=== PATIENT | male | born 1945 | race Caucasian/White ===

== ENCOUNTER 2018-01-03 16:11 | Inpatient (IN) | payer OTHER ==
[~2018-01-03] VITALS: Ht 182.9 cm; Wt 73.0 kg
[~2018-01-03 16:11] MED LIST: ASPIRIN EC81 M1 PO; CYCLOBENZAPRINE10 M1 PO; INDOMETHACIN25 M1 PO; PREDNISONE10 M2 PO; TRAMADOL HCL50 M1 PO; ZITHROMAX250 M2 PO
--- NOTE | 2018-01-03 16:31 | ED CARDIAC/CP/PALPITATIONS ---
History of Present Illness General Chief Complaint: Dyspnea (COPD, CHF, Other) Stated Complaint: SOB WITH EXERTION; BLE SWELLING Source: patient Exam Limitations: no limitations Vital Signs & Intake/Output Vital Signs & Intake/Output Vital Signs Date Time Temp Pulse Resp B/P B/P Pulse O2 O2 Flow FiO2 Mean Ox Delivery Rate 01/03 2029 96.7 85 18 114/70 95 Room Air 01/03 1852 97.0 84 20 117/70 98 Room Air 01/03 1622 98 Room Air 01/03 1620 97.2 86 20 115/76 100 Nasal 4.0L Cannula Allergies Coded Allergies: No Known Allergies (04/27/16) Reconcile Medications Aspirin (Ecotrin*) 81 MG TABLET.DR 1 TAB PO DAILY HEART/BLOOD (Reported) Cyclobenzaprine HCl 10 MG TABLET 1 TAB PO PRN MUSCLE RELAXER (Reported) Rosuvastatin Calcium (Crestor) 10 MG TABLET 1 TAB PO DAILY HIGH CHOLESTROL ( Reported) Tramadol HCl 50 MG TABLET 1 TAB PO PRN PAIN (Reported) Triage Note: PT BIBA FROM HOME WITH C/O EXERTIONAL SOB, GENERAL MALAISE AND BLE EDEMA. PT REPORTS RECENT DX OF BRONCHITIS. WAS FEELING BETTER, BUT HAS BECOME INCREASINGLY UNWELL OVER SEVERAL DAYS, SOB WITH ANY ADLs. GENERALIZED WEAKNESS. HAS NOTED INCREASED SWELLING TO FEET AND ANKLES, WHICH IS NOT BASELINE. PT ARRIVES A&O, PALE. 4L NC IN PLACE. PT IS NOT ON HOME O2. EMS UNABLE TO GET O2 SAT DUE TO PT COOL HANDS. VSS. NO COUGH. Triage Nurses Notes Reviewed? yes Onset: Gradual Duration: getting worse Timing: recent history Radiation: no radiation HPI: Patient is a 72-year-old male with a past medical history of COPD not on home O2 known AAA and hyperlipidemia who IS A CURRENT smoker who was seen and evaluated at [place] emergency room on December 16 for concerns of upper respiratory infection where he was diagnosed with bronchitis given azithromycin and prednisone. Patient returns to the emergency room stating he's had a 5 day history of worsening leg swelling and dyspnea on exertion and generalized weakness and fatigue. Patient denies any fever chills chest pain arm pain jaw pain diaphoresis nausea vomiting abdominal pain hemoptysis (Jerry Satnley) Past History Medical History Any Pertinent Medical History? see below for history Neurological: NONE EENT: NONE Cardiovascular: hyperlipidemia Respiratory: COPD Gastrointestinal: AAA Hepatic: NONE Renal: NONE Musculoskeletal: NONE Psychiatric: NONE Endocrine: NONE Blood Disorders: NONE Cancer(s): NONE COTTON BREEDER/Reproductive: NONE Surgical History Surgical History: non-contributory Psychosocial History Who do you live with Patient/Self Services at Home NONE What is your primary language Serbian Family History Hx Contributory? No (Jerry Stanley) Review of Systems Review of Systems Constitutional: Reports: see HPI, malaise. EENTM: Reports: no symptoms. Respiratory: Reports: see HPI, short of breath. Cardiovascular: Reports: see HPI. GI: Reports: no symptoms. Genitourinary: Reports: no symptoms. Musculoskeletal: Reports: no symptoms. Skin: Reports: no symptoms. Neurological/Psychological: Reports: no symptoms. Hematologic/Endocrine: Reports: no symptoms. Immunologic/Allergic: Reports: no symptoms. All Other Systems: Reviewed and Negative (Jerry Stanley) Physical Exam Physical Exam General Appearance: no apparent distress, alert, comfortable Head: atraumatic Eyes: Bilateral: normal appearance. Ears, Nose, Throat: hearing grossly normal Neck: normal inspection Respiratory: quiet respiration, decreased breath sounds Cardiovascular: regular rate/rhythm Peripheral Pulses: 2+ radial (R), 2+ radial (L) Gastrointestinal: normal bowel sounds, soft, non-tender Neurologic/Psych: no motor/sensory deficits Skin: intact, normal color, warm/dry Core Measures ACS in differential dx? Yes CVA/TIA Diagnosis No Sepsis Present: No Sepsis Focused Exam Completed? No (Jerry Stanley) Progress Differential Diagnosis: AMI, aortic dissection, atrial fibrillation, cholecystitis, CHF/pulm edema, costochondritis, hyperkalemia, hypovolemia, hyperthyroid, hyperventilation, intracranial hemorrhage, myocarditis, pancreatitis, pericarditis, pneumonia, pneumothorax, PSVT, pulmonary embolism, PUD/GERD, PVCs/PACs, respiratory failure, rib fracture, sepsis, unstable angina, V-fib/V-Tach, WPW syndrome Plan of Care: Orders Procedure Date/time Status Heart Healthy Diet 01/04 B Active ED Holding Orders 01/03 185 Active Admit to inpatient 01/03 1859 Active Vital Signs 01/03 1859 Active Code Status 01/03 1859 Active US-LIMITED ABDOMEN 01/03 1858 Active Add-on Test (ER Only) 01/03 1828 Active PARTIAL THROMBOPLASTIN TIME 01/03 1730 Complete PROTHROMBIN TIME 01/03 1730 Complete LIPASE 01/03 1730 Complete LACTIC ACID 01/03 1730 Complete AMYLASE 01/03 1730 Complete Telemetry/Transportation Specialist 01/03 1657 Active TROPONIN LEVEL 01/03 1657 Complete D-DIMER 01/03 1657 Complete COMPREHENSIVE METABOLIC PANEL 01/03 1657 Complete CBC WITHOUT DIFFERENTIAL 01/03 1657 Complete B-TYPE NATRIURETIC PEP (BNP) 01/03 165 Complete EKG 01/03 1637 Active Laboratory Tests 01/03/18 1730: Anion Gap 13, Estimated GFR 43 L, BUN/Creatinine Ratio 36.9 H, Glucose 109 H, Lactic Acid 4.0 H, Calcium 9.2, Total Bilirubin 2.5 H, AST 717 H, ALT 2269 H , Alkaline Phosphatase 252 H, Troponin I 0.13 *H, Zeh-V-Dzjkroaegin Pept 41183 H, Total Protein 6.9, Albumin 3.8, Globulin 3.1, Albumin/Globulin Ratio 1.2, Amylase 35, Lipase 139, PT 32.1 H, INR 2.91 H, APTT 31, D-Dimer High Sensitivty 1850 H, CBC w Diff NO MAN DIFF REQ, RBC 5.28, MCV 90.3, MCH 29.7, MCHC 32.9 L, RDW 16.9 H, MPV 9.5, Gran % 87.5 H, Lymphocytes % 5.7 L, Monocytes % 6.7, Eosinophils % 0, Basophils % 0.1, Absolute Granulocytes 14.3 H , Absolute Lymphocytes 0.9 L, Absolute Monocytes 1.1 H, Absolute Eosinophils 0 , Absolute Basophils 0 Patient on initial presentation was resting comfortably at bedside has nontender abdomen afebrile has diminished breath sounds however no adventitious breath sounds were noted patient was administered nebulizer treatment which improvement of aeration. Patient has concerning findings of EKG abnormalities of inversion T waves patient has critical findings of elevated troponin 0.13 and concerns due to history of present illness of dyspnea on exertion leg swelling and significantly elevated BNP of CHF. I discussed admission with Dr. Fair who is covering for Dr. Hernandez who was aware and will consult. Patient was given IV Lasix patient also has significantly elevated transaminitis bilirubin leukocytosis however no concerns of a ASCENDING cholangitis due to nontender abdomen on examination Is likely this is due to CHF and fluid overload DISCUSSED HANDOFF WITH DR. TANG WHO Will admit Lizbeth TO ICU Discussed admission with patient who was aware and agrees. Discussed admission with vascular surgery who is aware of the incidental finding of the aneurysm and will consult Diagnostic Imaging: Viewed by Me: CT Scan. Radiology Impression: SEE COMMENTS Initial ED EK BPM,RBBB T WAVE INVERSION IN LATERAL LEADS Comments: PATIENT: KWABENA FELDMAN JR PRESENT AGE: 72 PATIENT ACCOUNT NO: [id number] : 45 LOCATION: [facility] ORDERING PHYSICIAN: Jerry YANG SERVICE DATE: 01/03/18 EXAM TYPE: CAT - CT ABD & PELVIS W IV CONTRAST; CTA CHEST-PULMONARY EMBOLISM EXAMINATION: CT ANGIOGRAM OF THE CHEST WITH CONTRAST (CT PULMONARY ANGIOGRAM FOR PE) CLINICAL INFORMATION: Shortness of breath and elevated D-dimer. COMPARISON: No pertinent prior studies are available for comparison. TECHNIQUE: Prior to contrast administration, noncontrast localization images were obtained. Subsequently, multidetector volumetric imaging was performed from the thoracic inlet to below the diaphragms following the administration of 95 mL Optiray 350 intravenous contrast. No contrast reaction reported. Sagittal, coronal, and MIP oblique sagittal reformatted images were obtained on the CT workstation, uploaded to PACS, and reviewed. DLP: Total exam dose-length product 725 mGy-cm FINDINGS: QUALITY OF STUDY/CONTRAST BOLUS: Satisfactory. PULMONARY ARTERIES: Pulmonary arteries are normal in size. There appears to be thin, nonocclusive filling defect within the lumen of a subsegmental branch in the right upper lobe (image 219, series 2). This could represent a residual web from remote embolism. In addition, there is an area of minimal thickening along the anterior wall of the left interlobar artery as well as along the anterior wall of a subsegmental branch in the left lower lobe. These findings also could be sequela of remote embolism. No convincing evidence for an acute embolic filling defect. THORACIC AORTA: Atherosclerotic calcification of the thoracic aorta. The ascending thoracic aorta is 3.9 cm transverse diameter. The aortic lumen is poorly evaluated due to the timing of the contrast bolus for the pulmonary arteries. LUNGS AND PLEURA: There is linear strand of mucus along the tracheal wall and extending into the right mainstem bronchus and into the bronchus intermedius. Shojnuyd-ow-wplqrp centrilobular emphysema. Mild thickening of bronchial grossman in both lungs. Lungs have mosaic attenuation, possibly due to combination of the emphysema and mild edema. There is interlobular septal thickening. Also, mild septal thickening is seen in subpleural regions of the lower lung zones. Small left pleural effusion is present. CARDIOVASCULAR: The heart size is normal. Mitral valve annulus is calcified. Calcifications also observed at the level of the aortic valve. Qwim-wk-izvulykv atherosclerotic calcification of coronary arteries. No pericardial effusion. No evidence of inward bowing of the interventricular septum. There is contrast reflux into the inferior vena cava and hepatic veins, which can be a manifestation of tricuspid regurgitation and/or elevated right heart pressure. MEDIASTINUM: The esophagus has normal wall thickness. The visualized portion of the thyroid gland is unremarkable. No mediastinal mass. LYMPHATICS: No pathologic sized axillary, hilar or mediastinal lymph nodes. OSSEOUS STRUCTURES: No acute findings within the extensively degenerated spine. No aggressive osseous lesions. IMPRESSION: 1. No acute pulmonary emboli are identified. There are a few findings (as noted above) that are suspicious for sequela of remote embolic disease. 2. Ppgvrgbd-oz-pftxqq pulmonary emphysema. 3. Lungs have mosaic attenuation; this appears to be secondary to a combination of pulmonary emphysema and mild interstitial edema. Small left pleural effusion is present. 4. There is contrast reflux into the inferior vena cava and hepatic veins, which can be a manifestation of tricuspid regurgitation and/or elevated right sided cardiac pressures. EXAMINATION: CT ABDOMEN AND PELVIS WITH IV CONTRAST CLINICAL INFORMATION: Elevated liver function tests and bilirubin levels. COMPARISON: Abdomen CT images from 10/14/2016 TECHNIQUE: Multidetector CT imaging examination of the abdomen and pelvis was performed with intravenous administration of contrast (see above) Axial images are displayed at 0.625 mm and 5 mm slice thickness. Coronal and sagittal reformatted images were generated at the technologist's workstation and submitted for review. DLP: See above FINDINGS: HEPATOBILIARY: Liver has normal size and contour. There are a few hepatic cysts, unchanged compared to 10/14/2016. No suspicious hepatic lesion or intrahepatic bile duct dilatation. Gallbladder is grossly unremarkable. PANCREAS: Unremarkable. SPLEEN: Unremarkable. ADRENAL GLANDS: Unremarkable. KIDNEYS, URETERS, BLADDER: Kidneys enhance symmetrically. No renal mass, nephrolithiasis or hydronephrosis. The ureters and urinary bladder unremarkable. GI TRACT AND PERITONEUM: Stomach is unremarkable. Loops of bowel are normal in caliber. No evidence of acute inflammation or obstruction along the gastrointestinal tract. No ascites or pneumoperitoneum. ABDOMINAL WALL: There is edema within subcutaneous tissues of the abdominal wall, flanks and back. VASCULAR: There is increased thrombus along the inner wall of the aneurysmal infrarenal aorta. The fusiform aneurysm begins approximately 3.3 cm below the level of the renal arteries and terminates above the level of bifurcation. The infrarenal abdominal aorta aneurysm measures up to 5.4 cm transverse and 5.2 cm AP, compared to 5.2 x 5 cm on 10/14/2016. Atherosclerotic disease of iliac arteries without aneurysm. LYMPH NODES: No pathologic sized lymph nodes within the abdomen or pelvis. PELVIC VISCERA: Prostate gland has central calcification. No pelvic mass. OSSEOUS STRUCTURES: Multilevel facet arthropathy and multilevel severe degenerative disc disease of the lumbar spine. 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 IMPRESSION: 1. No acute imaging findings within the abdomen or pelvis. 2. Fusiform aneurysm of the infrarenal abdominal aorta has increased thrombus along its inner wall compared to 10/14/2016. The aneurysm has slightly increased in size and currently measures up to 5.4 cm transverse (compared to 5.2 cm on 10/14/2016). DICTATED BY: Thomas Espinoza MD DATE/TIME DICTATED:01/03/181933 INSURANCE ADJUSTER:DUSTY DATE/TIME TRANSCRIBED:01/03/181933 CONFIDENTIAL, DO NOT COPY WITHOUT APPROPRIATE AUTHORIZATION. <Electronically signed in Other Vendor System> SIGNED BY: Thomas Espinoza MD 01/03/182005 (Jerry Stanley) Departure Departure Disposition: STILL A PATIENT Condition: Critical Clinical Impression Primary Impression: CHF (congestive heart failure) Secondary Impressions: VERA (acute kidney injury), COPD (chronic obstructive pulmonary disease), Elevated bilirubin, Elevated troponin, Transaminitis Referrals: Leonard Nieves MD (PCP/Family) Departure Forms: Customer Survey General Discharge Information Admission Note Spoke With: Leonard Nieves MD Documentation of Exam: Documentation of any treatments & extenuating circumstances including Concerns Regarding Discharge (functional status, medication knowledge or non-compliance, living conditions, etc.) that warrant an admission rather than observation: [ Patient requires ICU admission, telemetry monitoring, echocardiogram IV Lasix cardiology consultation and repeat labs pulmonary consultation repeat EKG possible heparinization] (Jerry Stanley) PA/SAND POLISHER Co-Sign Statement Statement: ED Attending supervision documentation- [] I saw and evaluated the patient. I have also reviewed all the pertinent lab results and diagnostic results. I agree with the findings and the plan of care as documented in the PA's/SAND POLISHER's documentation. [X] I have reviewed the ED Record and agree with the PA's/SAND POLISHER's documentation. [] Additions or exceptions (if any) to the PAs/SAND POLISHER's note and plan are summarized below: [] 01/03/18 8 PM 72-year-old man presents with shortness of breath and leg swelling. He has acute EKG changes and a positive troponin. No evidence of ST segment elevation. Cardiology was consulted and he is being admitted to a monitored unit. He admits to difficulty breathing but denies any chest pain. Troponin is elevated, BNP is elevated, transaminases are elevated. He also had an elevated d-dimer. CTA was negative for pulmonary embolism but did show mild pulmonary vascular congestion. Minimal increase in his abdominal aortic aneurysm. He is being admitted to the ICU for further care. Case was discussed with Dr. Nieves who accepted the patient for admission. (Barrington Tang DO) Critical Care Note Critical Care Note Critical Care Time: 30-74 min (Jerry Stanley)
[2018-01-03 17:44] LABS: ABSOLUTE BASOPHIL COUNT 0 /CUMM (0.0-0.2); ABSOLUTE EOSINOPHIL COUNT 0 /CUMM (0.0-0.7); ABSOLUTE GRANULOCYTE CT 14.3 /CUMM (1.4-6.5); ABSOLUTE LYMPH COUNT 0.9 /CUMM (1.2-3.4); ABSOLUTE MONOCYTE COUNT 1.1 /CUMM (0.10-0.60); BASOPHIL % 0.1 % (0.0-2.0); EOSINOPHIL % 0 % (0-5); HEMATOCRIT 47.6 % (42-52); MEAN CORPUSCULAR HGB 29.7 PG (27.0-31.0); MEAN CORPUSCULAR HGB CONC 32.9 G/DL (33.0-37.0); MEAN CORPUSCULAR VOLUME 90.3 FL (80.0-94.0); MEAN PLATELET VOLUME 9.5 FL (7.4-10.4); PLATELET COUNT 76 /CUMM (130-400); RBC DISTRIBUTION WIDTH 16.9 % (11.5-14.5); RED BLOOD CELL CT 5.28 /CUMM (4.70-6.10); WHITE BLOOD CELL COUNT 16.4 /CUMM (4.8-10.8)
[2018-01-03 18:02] LABS: GRANULOCYTE % 87.5 % (42.2-75.2)
[2018-01-03 18:44] LABS: PT 32.1 SEC (9.4-12.5); PTT 31 SEC (25-37)
--- NOTE | 2018-01-03 19:01 | ULTRASOUND REPORT ---
EXAMINATION: US TRIPLEX OF LOWER EXTREMITIES, BILATERAL CLINICAL INFORMATION: Edema. Swelling. COMPARISON: None TECHNIQUE: Color-flow triplex imaging with spectral analysis and compression Doppler were performed on the lower extremities. FINDINGS: Respiratory variation, normal compression and augmented flow are noted throughout the lower extremities. The visualized common femoral vein, superficial femoral vein, profunda femoral vein, popliteal vein and midcalf peroneal and posterior tibial venous segments show no evidence of deep venous thrombosis. There is a popliteal cyst of the right knee measuring 3 x 0.5 x 0.8 cm IMPRESSION: 1. Normal triplex scan without evidence of deep venous thrombosis involving the lower extremities. 2. Right knee popliteal cyst.
[2018-01-03] MEDS ORDERED: CRESTOR10 M1 PO (20:01)
--- NOTE | 2018-01-03 20:06 | CT SCAN REPORT ---
EXAMINATION: CT ANGIOGRAM OF THE CHEST WITH CONTRAST (CT PULMONARY ANGIOGRAM FOR PE) CLINICAL INFORMATION: Shortness of breath and elevated D-dimer. COMPARISON: No pertinent prior studies are available for comparison. TECHNIQUE: Prior to contrast administration, noncontrast localization images were obtained. Subsequently, multidetector volumetric imaging was performed from the thoracic inlet to below the diaphragms following the administration of 95 mL Optiray 350 intravenous contrast. No contrast reaction reported. Sagittal, coronal, and MIP oblique sagittal reformatted images were obtained on the CT workstation, uploaded to PACS, and reviewed. DLP: Total exam dose-length product 725 mGy-cm FINDINGS: QUALITY OF STUDY/CONTRAST BOLUS: Satisfactory. PULMONARY ARTERIES: Pulmonary arteries are normal in size. There appears to be thin, nonocclusive filling defect within the lumen of a subsegmental branch in the right upper lobe (image 219, series 2). This could represent a residual web from remote embolism. In addition, there is an area of minimal thickening along the anterior wall of the left interlobar artery as well as along the anterior wall of a subsegmental branch in the left lower lobe. These findings also could be sequela of remote embolism. No convincing evidence for an acute embolic filling defect. THORACIC AORTA: Atherosclerotic calcification of the thoracic aorta. The ascending thoracic aorta is 3.9 cm transverse diameter. The aortic lumen is poorly evaluated due to the timing of the contrast bolus for the pulmonary arteries. LUNGS AND PLEURA: There is linear strand of mucus along the tracheal wall and extending into the right mainstem bronchus and into the bronchus intermedius. Vkjfxbdc-qr-fvefcp centrilobular emphysema. Mild thickening of bronchial grossman in both lungs. Lungs have mosaic attenuation, possibly due to combination of the emphysema and mild edema. There is interlobular septal thickening. Also, mild septal thickening is seen in subpleural regions of the lower lung zones. Small left pleural effusion is present. CARDIOVASCULAR: The heart size is normal. Mitral valve annulus is calcified. Calcifications also observed at the level of the aortic valve. Dczx-za-dsjzjczx atherosclerotic calcification of coronary arteries. No pericardial effusion. No evidence of inward bowing of the interventricular septum. There is contrast reflux into the inferior vena cava and hepatic veins, which can be a manifestation of tricuspid regurgitation and/or elevated right heart pressure. MEDIASTINUM: The esophagus has normal wall thickness. The visualized portion of the thyroid gland is unremarkable. No mediastinal mass. LYMPHATICS: No pathologic sized axillary, hilar or mediastinal lymph nodes. OSSEOUS STRUCTURES: No acute findings within the extensively degenerated spine. No aggressive osseous lesions. IMPRESSION: 1. No acute pulmonary emboli are identified. There are a few findings (as noted above) that are suspicious for sequela of remote embolic disease. 2. Luextqkh-yr-ziovxt pulmonary emphysema. 3. Lungs have mosaic attenuation; this appears to be secondary to a combination of pulmonary emphysema and mild interstitial edema. Small left pleural effusion is present. 4. There is contrast reflux into the inferior vena cava and hepatic veins, which can be a manifestation of tricuspid regurgitation and/or elevated right sided cardiac pressures. EXAMINATION: CT ABDOMEN AND PELVIS WITH IV CONTRAST CLINICAL INFORMATION: Elevated liver function tests and bilirubin levels. COMPARISON: Abdomen CT images from 10/14/2016 TECHNIQUE: Multidetector CT imaging examination of the abdomen and pelvis was performed with intravenous administration of contrast (see above) Axial images are displayed at 0.625 mm and 5 mm slice thickness. Coronal and sagittal reformatted images were generated at the technologist's workstation and submitted for review. DLP: See above FINDINGS: HEPATOBILIARY: Liver has normal size and contour. There are a few hepatic cysts, unchanged compared to 10/14/2016. No suspicious hepatic lesion or intrahepatic bile duct dilatation. Gallbladder is grossly unremarkable. PANCREAS: Unremarkable. SPLEEN: Unremarkable. ADRENAL GLANDS: Unremarkable. KIDNEYS, URETERS, BLADDER: Kidneys enhance symmetrically. No renal mass, nephrolithiasis or hydronephrosis. The ureters and urinary bladder unremarkable. GI TRACT AND PERITONEUM: Stomach is unremarkable. Loops of bowel are normal in caliber. No evidence of acute inflammation or obstruction along the gastrointestinal tract. No ascites or pneumoperitoneum. ABDOMINAL WALL: There is edema within subcutaneous tissues of the abdominal wall, flanks and back. VASCULAR: There is increased thrombus along the inner wall of the aneurysmal infrarenal aorta. The fusiform aneurysm begins approximately 3.3 cm below the level of the renal arteries and terminates above the level of bifurcation. The infrarenal abdominal aorta aneurysm measures up to 5.4 cm transverse and 5.2 cm AP, compared to 5.2 x 5 cm on 10/14/2016. Atherosclerotic disease of iliac arteries without aneurysm. LYMPH NODES: No pathologic sized lymph nodes within the abdomen or pelvis. PELVIC VISCERA: Prostate gland has central calcification. No pelvic mass. OSSEOUS STRUCTURES: Multilevel facet arthropathy and multilevel severe degenerative disc disease of the lumbar spine. 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 IMPRESSION: 1. No acute imaging findings within the abdomen or pelvis. 2. Fusiform aneurysm of the infrarenal abdominal aorta has increased thrombus along its inner wall compared to 10/14/2016. The aneurysm has slightly increased in size and currently measures up to 5.4 cm transverse (compared to 5.2 cm on 10/14/2016).
--- NOTE | 2018-01-03 21:27 | ULTRASOUND REPORT ---
EXAMINATION: US ABDOMEN LIMITED CLINICAL INFORMATION: Elevated LFT, bilirubin. COMPARISON: CT of the abdomen and pelvis from the same day. TECHNIQUE: Real-time imaging of the right upper quadrant abdominal viscera. Per technologist note, the exam was limited due to overlying bowel gas and difficulty with breath-holding. FINDINGS: PANCREAS: The pancreas is largely obscured by overlying bowel gas. LIVER: The small cyst seen on CT are not sonographically visualized. No discrete hepatic lesion. Some of the documented images suggest slightly increased echogenicity within the liver. No intrahepatic ductal dilatation is visualized. GALLBLADDER: Normal. The gallbladder is physiologically distended without evidence of stones, sludge, polyps, wall thickening or pericholecystic fluid. COMMON BILE DUCT: Normal in caliber measuring 0.6 cm in diameter. RIGHT KIDNEY: Normal. No hydronephrosis. No renal calculi or focal parenchymal lesions. The kidney measures 10.7 cm in maximum dimension. FREE FLUID: None. IMPRESSION: Limited examination without sonographic evidence of acute right upper quadrant abnormality.
--- NOTE | 2018-01-03 22:13 | History & Physical ---
General Information and HPI MD Statement: I have seen and personally examined KWABENA FELDMAN JR and documented this H&P. Source of Information: patient Exam Limitations: no limitations History of Present Illness: This is a 72-year-old gentleman with past medical history significant for COPD not on home oxygen, abdominal aortic aneurysm, chronic back pain, hyperlipidemia presents to the hospital for worsening of dyspnea and lower extremity edema. According to the patient, he has been experiencing worsening of shortness of breath for the past few weeks. He was seen on December 16 for possible upper respiratory infection and received treatment with azithromycin and prednisone taper for possible bronchitis. He also reports that he has been noticing mild chest discomfort for the past few weeks with. Reports having occasional chills for the past few weeks but no fever and no history of sick contacts. He reports having orthopnea at baseline and usually has to sleep in semi-sitting position. States that he has exertional dyspnea at baseline. He noticed that his legs are becoming more swollen for the past few weeks, more so in the past 5 days. He is also been experiencing generalized weakness, today he was too weak to get dressed, ambulance was called and he was brought to the hospital. Patient follows with the vascular surgeon (unsure of the name) for abdominal aortic aneurysm, he was recommended to undergo surgery however refused. He was seen by Dr. Hernandez for clearance before the procedure. Denies having had any echocardiogram or stress test. He smokes one pack per day for the past 50 years. Denies any alcohol or illicit drug use. At the time of our interview, he reports that his chest discomfort has resolved, he reports feeling fatigued and not comfortable. The patient all of his medications including low-dose aspirin in the morning. He received IV methylprednisolone, IV furosemide 40 mg and TRC in the ED. Allergies/Medications Allergies: Coded Allergies: No Known Allergies (04/27/16) Home Med list Aspirin (Ecotrin*) 81 MG TABLET.DR 1 TAB PO DAILY HEART/BLOOD (Reported) Cyclobenzaprine HCl 10 MG TABLET 1 TAB PO PRN MUSCLE RELAXER (Reported) Rosuvastatin Calcium (Crestor) 10 MG TABLET 1 TAB PO DAILY HIGH CHOLESTROL ( Reported) Tramadol HCl 50 MG TABLET 1 TAB PO PRN PAIN (Reported) Past History Travel History Traveled to [place] past 21 day No Medical History Neurological: NONE EENT: NONE Cardiovascular: hyperlipidemia Respiratory: COPD Gastrointestinal: AAA Hepatic: NONE Renal: NONE Musculoskeletal: NONE Psychiatric: NONE Endocrine: NONE Blood Disorders: NONE Cancer(s): NONE MANAGER INTERNET/Reproductive: NONE Surgical History Surgical History: non-contributory Past Family/Social History Psychosocial History Services at Home: NONE ETOH Use: occasional use Review of Systems Review of Systems Constitutional: Reports: chills. Comments See HPI Exam & Diagnostic Data Last 24 Hrs of Vital Signs/I&O Vital Signs Date Time Temp Pulse Resp B/P B/P Pulse O2 O2 Flow FiO2 Mean Ox Delivery Rate 01/04 0132 98 Room Air 01/04 0120 97.5 83 18 113/77 98 Room Air / 0025 97.0 84 18 115/76 98 Room Air 03/ 2338 96.9 86 18 129/59 100 Room Air / 2225 97.0 90 18 114/78 100 Room Air / 2117 98 Room Air / 2029 96.7 85 18 114/70 95 Room Air / 1852 97.0 84 20 117/70 98 Room Air / 1622 98 Room Air / 1620 97.2 86 20 115/76 100 Nasal 4.0L Cannula Intake & Output 01/04 0800 03/07 0000 03/06 1600 Intake Total Output Total 1000 Balance -1000 Output, Urine 1000 Patient 166 lb Weight Weight Reported by Patient Measurement Method Physical Exam General Appearance Alert, Oriented X3 Skin ecchymosis on hands Skin Temp/Moisture Exam: Warm/Dry Sepsis Skin Exam (color): Normal for Ethnicity HEENT Atraumatic, PERRLA, EOMI, Mucous Membr. moist/pink Neck Supple, No JVD, No thryomegaly, +2 Carotid Pulse wo Bruit, No LAD Lymphatic Axillary nl, Cervical nl Cardiovascular Regular Rate, Normal S1, Normal S2, No Murmurs, Gallops, Rubs Lungs Bibasilar crackles, diminished breath sounds Abdomen Normal Bowel Sounds, Soft, No Tenderness, No Hepatospenomegaly, No Masses Neurological Normal Speech, Strength at 5/5 X4 Ext, Normal Tone, Sensation Intact, Cranial Nerves 3-12 NL, Reflexes 2+ Extremities No Clubbing, No Cyanosis, Normal Pulses, LE edema Vascular Normal Pulses, Pulses Symmetrical Last 24 Hrs of Labs/Miguel: Laboratory Tests 01/03/18 2340: Anion Gap 16, Estimated GFR 43 L, Glucose 123 H, Calcium 9.0, Phosphorus 4.9 H, Magnesium 2.3, Total Bilirubin 2.7 H, AST 715 H, ALT 2053 H, Troponin I 0.11 *H, Albumin 3.6, CBC w Diff NO MAN DIFF REQ, RBC 5.15, MCV 90.4, MCH 29.5, MCHC 32.6 L, RDW 17.2 H, MPV 9.6, Gran % 91.8 H, Lymphocytes % 5.0 L, Monocytes % 2.9, Eosinophils % 0, Basophils % 0.3, Absolute Granulocytes 12.9 H , Absolute Lymphocytes 0.7 L, Absolute Monocytes 0.4, Absolute Eosinophils 0, Absolute Basophils 0 01/03/182239: Lactic Acid 3.5 H 01/03/18 1730: Anion Gap 13, Estimated GFR 43 L, BUN/Creatinine Ratio 36.9 H, Glucose 109 H, Lactic Acid 4.0 H, Calcium 9.2, Total Bilirubin 2.5 H, AST 717 H, ALT 2269 H , Alkaline Phosphatase 252 H, Troponin I 0.13 *H, Uhf-W-Cgtornkatnd Pept 47339 H, Total Protein 6.9, Albumin 3.8, Globulin 3.1, Albumin/Globulin Ratio 1.2, Amylase 35, Lipase 139, PT 32.1 H, INR 2.91 H, APTT 31, D-Dimer High Sensitivty 1850 H, CBC w Diff NO MAN DIFF REQ, RBC 5.28, MCV 90.3, MCH 29.7, MCHC 32.9 L, RDW 16.9 H, MPV 9.5, Gran % 87.5 H, Lymphocytes % 5.7 L, Monocytes % 6.7, Eosinophils % 0, Basophils % 0.1, Absolute Granulocytes 14.3 H , Absolute Lymphocytes 0.9 L, Absolute Monocytes 1.1 H, Absolute Eosinophils 0 , Absolute Basophils 0 Microbiology 01/03 2250 BLOOD: Blood Culture - RECD 01/04 2240 BLOOD: Blood Culture - RECD Diagnostic Data EKG Results SR, rate 85, PVCs, RBBB, QTC 500, T wave inversion v1-v3(new compared to prior EKG in 2016) Other Results Chest CTA: 1. No acute pulmonary emboli are identified. There are a few findings (as noted above) that are suspicious for sequela of remote embolic disease. 2. [id number] pulmonary emphysema. 3. Lungs have mosaic attenuation; this appears to be secondary to a combination of pulmonary emphysema and mild interstitial edema. Small left pleural effusion is present. 4. There is contrast reflux into the inferior vena cava and hepatic veins, which can be a manifestation of tricuspid regurgitation and/or elevated right sided cardiac pressures. CT abd/pelvic w/IV contrast: 1. No acute imaging findings within the abdomen or pelvis. 2. Fusiform aneurysm of the infrarenal abdominal aorta has increased thrombus along its inner wall compared to 10/14/2016. The aneurysm has slightly increased in size and currently measures up to 5.4 cm transverse (compared to 5.2 cm on 10/14/2016). Abdomen US: Limited examination without sonographic evidence of acute right upper quadrant abnormality. Venous doppler: 1. Normal triplex scan without evidence of deep venous thrombosis involving the lower extremities. 2. Right knee popliteal cyst. Assessment/Plan Assessment: This is a 72-year-old gentleman with past medical history significant for COPD not on home oxygen, abdominal aortic aneurysm, chronic back pain, hyperlipidemia presents to the hospital for worsening of dyspnea and lower extremity edema. Assessment #Ac[place]: [place] [address], #Elevated troponin with EKG changes: Presented with elevated troponin 0.13 seconds set was 0.11 #LE edema: Doppler negative for DVTs #Transaminitis: Abdominal US negative;unclear etiology #Thrombocytopenia: No previous h/o thrombocytopenia; unclear etiology: Labs revealed platelet level of 76, labs rechecked with confirmed the value. #AAA: Size increased from 5.2 in 2016 to 5.4 #Elevated creatinine #Pulmonary emphysema/COPD #Elevated Lactic acid #Active smoker Plan: * Monitor in the ICU * pipe line walker * I's and O's * Trend troponin and EKGs * TRC/NEbs prn * Obtain blood cultures * Discuss with fish egg packer on-call, Dr. Fair. Per Dr. Fair, patient's clinical picture is not compatible with flash pulmonary edema given he has been experiencing worsening of lower extremity edema and dyspnea for at least a week prior to his presentation today. Dr. Fair is also not convinced if the patient should be started on IV heparin with this level of troponin. He is suggesting to give the patient loading dose aspirin. He is not suggesting to start beta inocencia at this point. Dr. Fair suggesting to check another set of troponin EKG to see the trend. He is suggesting to start the patient on IV Lasix 40 twice a day with close monitoring of creatinine. * Unclear if elevated creatinine is a result of cardiorenal vs pre renal; monitor creatinine closely * Echocardiogram * Trend lactic acid * Consider checking DIC panel * Smoking cessation counseling * Pulmonary consult called * Vascular consult called * Consider GI consult for transaminitis; consider checking Hepatitis panel * Consider hematology consult for thrombocytopenia * DVT PPX: ALPS * Full code The case was discussed with attending Dr. Nieves, who agrees with the above plan. As Ranked By This Provider Problem List: 1. VERA (acute kidney injury) 2. Elevated bilirubin 3. Transaminitis 4. Elevated troponin 5. CHF (congestive heart failure) Core Measures/Misc (07/17) Acute Coronary Syndrome ACS Diagnosis: No Congestive Heart Failure Congestive Heart Failure Diagnosis No Cerebrovascular Accident CVA/TIA Diagnosis: No VTE (View Protocol) VTE Risk Factors Smoker No Mechanical VTE Prophylaxis d/t N/A MechProphylax Ordered No VTE Pharm Prophylaxis d/t Platelets below ref range Sepsis (View protocol) Sepsis Present: No
[2018-01-03 23:58] LABS: ABSOLUTE BASOPHIL COUNT 0 /CUMM (0.0-0.2); ABSOLUTE EOSINOPHIL COUNT 0 /CUMM (0.0-0.7); ABSOLUTE GRANULOCYTE CT 12.9 /CUMM (1.4-6.5); ABSOLUTE LYMPH COUNT 0.7 /CUMM (1.2-3.4); ABSOLUTE MONOCYTE COUNT 0.4 /CUMM (0.10-0.60); BASOPHIL % 0.3 % (0.0-2.0); EOSINOPHIL % 0 % (0-5); HEMATOCRIT 46.5 % (42-52); MEAN CORPUSCULAR HGB 29.5 PG (27.0-31.0); MEAN CORPUSCULAR HGB CONC 32.6 G/DL (33.0-37.0); MEAN CORPUSCULAR VOLUME 90.4 FL (80.0-94.0); MEAN PLATELET VOLUME 9.6 FL (7.4-10.4); RBC DISTRIBUTION WIDTH 17.2 % (11.5-14.5); RED BLOOD CELL CT 5.15 /CUMM (4.70-6.10)
[2018-01-04 00:24] LABS: GRANULOCYTE % 91.8 % (42.2-75.2); PLATELET COUNT 76 /CUMM (130-400)
[2018-01-04 03:00] VITALS: BP 110/90
[2018-01-04 05:58] LABS: ABSOLUTE BASOPHIL COUNT 0 /CUMM (0.0-0.2); ABSOLUTE EOSINOPHIL COUNT 0 /CUMM (0.0-0.7); ABSOLUTE GRANULOCYTE CT 10.8 /CUMM (1.4-6.5); ABSOLUTE LYMPH COUNT 0.5 /CUMM (1.2-3.4); ABSOLUTE MONOCYTE COUNT 0.3 /CUMM (0.10-0.60); BASOPHIL % 0.1 % (0.0-2.0); EOSINOPHIL % 0 % (0-5); HEMATOCRIT 46.2 % (42-52); MEAN CORPUSCULAR HGB 29.4 PG (27.0-31.0); MEAN CORPUSCULAR HGB CONC 32.6 G/DL (33.0-37.0); MEAN CORPUSCULAR VOLUME 90.2 FL (80.0-94.0); MEAN PLATELET VOLUME 9.3 FL (7.4-10.4); PLATELET COUNT 58 /CUMM (130-400); RBC DISTRIBUTION WIDTH 16.6 % (11.5-14.5); RED BLOOD CELL CT 5.12 /CUMM (4.70-6.10); WHITE BLOOD CELL COUNT 11.6 /CUMM (4.8-10.8)
[2018-01-04 06:47] LABS: PT 28.6 SEC (9.4-12.5); PTT 32 SEC (25-37)
[2018-01-04 08:00] VITALS: BP 112/70
--- NOTE | 2018-01-04 08:15 | Cons- Cardiology ---
General Information and HPI Consulting Request Date of Consult: 01/04/18 Requested By: Leonard Nieves MD Reason for Consult: COPD/Probable CHF Source of Information: patient, old records Exam Limitations: no limitations History of Present Illness: the patient is a 72-year-old male who is well-known to me from prior office visits. He has a history of COPD, abdominal aortic aneurysm, and hyperlipidemia. He also has chronic lower extremity edema and probable peripheral vascular disease and venous insufficiency. The patient was originally seen by me for preoperative evaluation prior to AAA repair. However, the patient elected to not undergo the procedure and therefore never had any pre -procedure cardiac testing performed. the patient is now admitted to the hospital with several weeks of worsening shortness of breath and worsening lower extremity edema. He has been treated for possible bronchitis prior to admission. He denies any chest discomfort or other cardiac symptoms at the moment. However, he reportedly noted some chest discomfort previously. I was asked to the patient for further evaluation of his cardiac status, probable CHF, possible valvular disease, and mildly elevated troponin.. Allergies/Medications Allergies: Coded Allergies: No Known Allergies (04/27/16) Home Med List: Aspirin (Ecotrin*) 81 MG TABLET.DR 1 TAB PO DAILY HEART/BLOOD (Reported) Cyclobenzaprine HCl 10 MG TABLET 1 TAB PO PRN MUSCLE RELAXER (Reported) Rosuvastatin Calcium (Crestor) 10 MG TABLET 1 TAB PO DAILY HIGH CHOLESTROL ( Reported) Tramadol HCl 50 MG TABLET 1 TAB PO PRN PAIN (Reported) Current Medications: Current Medications Sig/Yousuf Start time Last Medication Dose Route Stop Time Status Admin Albuterol Sulfate 3 ML ONCE ONE 01/03 1745 DC 01/03 INH 01/03 1746 174 Aspirin 0 .STK-MED ONE 01/04 122 DC PO Aspirin 243 MG ONCE ONE 01/04 100 DC 01/04 PO 01/04 101 0120 Furosemide 40 MG 7:30 AM, & 4:30 PM 01/04 730 AC IV Furosemide 0 .STK-MED ONE 01/03 1802 DC IV Furosemide 40 MG ONCE ONE 01/03 1745 DC 01/03 IV 01/03 1746 180 Ipratropium [place] 2.5 ML ONCE ONE 01/03 1745 DC 01/03 INH 01/03 1746 174 Methylprednisolone 0 .STK-MED ONE 03/06 1802 DC .ROUTE Methylprednisolone 125 MG ONCE ONE 01/03 1745 DC 01/03 IV 01/03 174 1807 Tramadol HCl 0 .STK-MED ONE 01/03 2254 DC PO Tramadol HCl 50 MG ONCE ONE 01/03 2245 DC 01/03 PO 01/03 Past History Travel History Traveled to [place] past 21 day No Medical History Blood Transfusion Hx: No Neurological: NONE EENT: NONE Cardiovascular: aortic aneurysm, hyperlipidemia Respiratory: COPD Gastrointestinal: AAA Hepatic: NONE Renal: NONE Musculoskeletal: NONE Psychiatric: NONE Endocrine: NONE Blood Disorders: NONE Cancer(s): NONE 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 Home Services at Home: NONE CARLA FELDMAN [phone] Smoking Status: Current Everyday Smoker ETOH Use: occasional use Exam & Diagnostic Data Vital Signs and I&O Vital Signs Date Time Temp Pulse Resp B/P B/P Pulse O2 O2 Flow FiO2 Mean Ox Delivery Rate 01/04 0600 96 Nasal 2.0L Cannula 01/04 0346 94 Nasal 2.0L Cannula 01/04 0300 95 Nasal 2.0L Cannula 01/04 0300 97.0 85 20 110/90 95 Nasal 2.0L Cannula 01/04 0132 98 Room Air 01/04 0120 97.5 83 18 113/77 98 Room Air 01/04 0025 97.0 84 18 115/76 98 Room Air 01/03 2338 96.9 86 18 129/59 100 Room Air 01/03 2225 97.0 90 18 114/78 100 Room Air 01/03 2117 98 Room Air 01/03 2029 96.7 85 18 114/70 95 Room Air 01/03 1852 97.0 84 20 117/70 98 Room Air 01/03 1622 98 Room Air 01/03 1620 97.2 86 20 115/76 100 Nasal 4.0L Cannula Intake & Output 01/04 1600 01/04 0800 01/04 0000 01/03 1600 01/03 0800 01/03 0000 Intake Total Output Total 350 1000 Balance -350 -1000 Number 0 Bowel Movements Output, Urine 350 1000 Patient 158 lb 166 lb Weight Weight Bed scale Reported by Patient Measurement Method Physical Exam: General Appearance Alert, Oriented X3 Skin ecchymosis on hands HEENT Atraumatic, PERRLA, EOMI, Mucous Membr. moist/pink Neck Supple, No JVD, No thryomegaly, +2 Carotid Pulse with soft bilateral bruits Lymphatic Axillary nl, Cervical nl Cardiovascular Regular Rate, Normal S1, Normal S2, 2/6 systolic ejection murmur Lungs rhonchi with decreased breath sounds bilaterally Abdomen Normal Bowel Sounds, Soft, No Tenderness, No Hepatospenomegaly, No Masses Neurological Normal /nonfocal Extremities No Clubbing, No Cyanosis, Normal Pulses, + edema Vascular decreased distal lower extremity pulses bilaterally Labs/Miguel Results: Laboratory Tests 01/04 01/04 01/04 0530 0340 0200 Chemistry Sodium (137 - 145 mmol/L) 136 L Potassium (3.5 - 5.1 mmol/L) 4.3 Chloride (98 - 107 mmol/L) 96 L Carbon Dioxide (22 - 30 mmol/L) 26 Anion Gap (5 - 16) 13 BUN (9 - 20 mg/dL) 57 H Creatinine (0.7 - 1.2 mg/dL) 1.8 H Estimated GFR (>60 ml/min) 37 L Glucose (65 - 99 mg/dL) 112 H Lactic Acid (0.7 - 2.1 mmol/L) 3.1 H Cancelled Calcium (8.4 - 10.2 mg/dL) 9.1 Phosphorus (2.5 - 4.5 mg/dL) 5.0 H Magnesium (1.6 - 2.3 mg/dL) 2.4 H Total Bilirubin (0.2 - 1.3 mg/dL) 2.2 H AST (17 - 59 U/L) 637 H ALT (21 - 72 U/L) 1966 H Troponin I (<0.11 ng/ml) 0.14 *H Albumin (3.5 - 5.0 g/dL) 3.5 Coagulation PT (9.4 - 12.5 SEC) 28.6 H INR (0.90 - 1.17) 2.60 H APTT (25 - 37 SEC) 32 Fibrinogen Activity (200 - 393 MG/DL) 89 L D-Dimer High Sensitivty (0 - 243 ng/ml) 1882 H Hematology CBC w Diff MAN DIFF ORDERED WBC (4.8 - 10.8 /CUMM) 11.6 H RBC (4.70 - 6.10 /CUMM) 5.12 Hgb (14.0 - 18.0 G/DL) 15.1 Hct (42 - 52 %) 46.2 MCV (80.0 - 94.0 FL) 90.2 MCH (27.0 - 31.0 PG) 29.4 MCHC (33.0 - 37.0 G/DL) 32.6 L RDW (11.5 - 14.5 %) 16.6 H Plt Count (130 - 400 /CUMM) 58 L MPV (7.4 - 10.4 FL) 9.3 Gran % (42.2 - 75.2 %) 93.0 H Lymphocytes % (20.5 - 51.1 %) 4.4 L Monocytes % (1.7 - 9.3 %) 2.5 Eosinophils % (0 - 5 %) 0 Basophils % (0.0 - 2.0 %) 0.1 Absolute Granulocytes (1.4 - 6.5 /CUMM) 10.8 H Segmented Neutrophils (42.2 - 75.2 %) 94 H Absolute Lymphocytes (1.2 - 3.4 /CUMM) 0.5 L Lymphocytes (20.5 - 51.1 %) 1 L Monocytes (1.7 - 9.3 %) 5 Absolute Monocytes (0.10 - 0.60 /CUMM) 0.3 Absolute Eosinophils (0.0 - 0.7 /CUMM) 0 Absolute Basophils (0.0 - 0.2 /CUMM) 0 Nucleated RBCs (0.0 - 0.0 /100WBC) 2 H Platelet Estimate (ADEQUATE) VERIFIED BY SMEAR Polychromasia 1+ Anisocytosis 1+ Macrocytic Cells FEW Target Cells RARE Malia Cells FEW Elliptocytes FEW 01/03 01/03 2340 2240 Chemistry Sodium (137 - 145 mmol/L) 135 L Potassium (3.5 - 5.1 mmol/L) 4.4 Chloride (98 - 107 mmol/L) 95 L Carbon Dioxide (22 - 30 mmol/L) 24 Anion Gap (5 - 16) 16 BUN (9 - 20 mg/dL) 58 H Creatinine (0.7 - 1.2 mg/dL) 1.6 H Estimated GFR (>60 ml/min) 43 L Glucose (65 - 99 mg/dL) 123 H Lactic Acid (0.7 - 2.1 mmol/L) 3.5 H Calcium (8.4 - 10.2 mg/dL) 9.0 Phosphorus (2.5 - 4.5 mg/dL) 4.9 H Magnesium (1.6 - 2.3 mg/dL) 2.3 Total Bilirubin (0.2 - 1.3 mg/dL) 2.7 H AST (17 - 59 U/L) 715 H ALT (21 - 72 U/L) 2053 H Troponin I (<0.11 ng/ml) 0.11 *H Albumin (3.5 - 5.0 g/dL) 3.6 Hematology CBC w Diff NO MAN DIFF REQ WBC (4.8 - 10.8 /CUMM) 14.0 H RBC (4.70 - 6.10 /CUMM) 5.15 Hgb (14.0 - 18.0 G/DL) 15.2 Hct (42 - 52 %) 46.5 MCV (80.0 - 94.0 FL) 90.4 MCH (27.0 - 31.0 PG) 29.5 MCHC (33.0 - 37.0 G/DL) 32.6 L RDW (11.5 - 14.5 %) 17.2 H Plt Count (130 - 400 /CUMM) 76 L MPV (7.4 - 10.4 FL) 9.6 Gran % (42.2 - 75.2 %) 91.8 H Lymphocytes % (20.5 - 51.1 %) 5.0 L Monocytes % (1.7 - 9.3 %) 2.9 Eosinophils % (0 - 5 %) 0 Basophils % (0.0 - 2.0 %) 0.3 Absolute Granulocytes (1.4 - 6.5 /CUMM) 12.9 H Absolute Lymphocytes (1.2 - 3.4 /CUMM) 0.7 L Absolute Monocytes (0.10 - 0.60 /CUMM) 0.4 Absolute Eosinophils (0.0 - 0.7 /CUMM) 0 Absolute Basophils (0.0 - 0.2 /CUMM) 0 03/06 1730 Chemistry Sodium (137 - 145 mmol/L) 133 L Potassium (3.5 - 5.1 mmol/L) 5.1 Chloride (98 - 107 mmol/L) 96 L Carbon Dioxide (22 - 30 mmol/L) 24 Anion Gap (5 - 16) 13 BUN (9 - 20 mg/dL) 59 H Creatinine (0.7 - 1.2 mg/dL) 1.6 H Estimated GFR (>60 ml/min) 43 L BUN/Creatinine Ratio (7 - 25 %) 36.9 H Glucose (65 - 99 mg/dL) 109 H Lactic Acid (0.7 - 2.1 mmol/L) 4.0 H Calcium (8.4 - 10.2 mg/dL) 9.2 Total Bilirubin (0.2 - 1.3 mg/dL) 2.5 H AST (17 - 59 U/L) 717 H ALT (21 - 72 U/L) 2269 H Alkaline Phosphatase (< 127 U/L) 252 H Troponin I (<0.11 ng/ml) 0.13 *H [id number] Pept (<125 pg/mL) 68843 H Total Protein (6.3 - 8.2 g/dL) 6.9 Albumin (3.5 - 5.0 g/dL) 3.8 Globulin (1.9 - 4.2 gm/dL) 3.1 Albumin/Globulin Ratio (1.1 - 2.2 %) 1.2 Amylase (30 - 110 U/L) 35 Lipase (23 - 300 U/L) 139 Coagulation PT (9.4 - 12.5 SEC) 32.1 H INR (0.90 - 1.17) 2.91 H APTT (25 - 37 SEC) 31 D-Dimer High Sensitivty (0 - 243 ng/ml) 1850 H Hematology CBC w Diff NO MAN DIFF REQ WBC (4.8 - 10.8 /CUMM) 16.4 H RBC (4.70 - 6.10 /CUMM) 5.28 Hgb (14.0 - 18.0 G/DL) 15.7 Hct (42 - 52 %) 47.6 MCV (80.0 - 94.0 FL) 90.3 MCH (27.0 - 31.0 PG) 29.7 MCHC (33.0 - 37.0 G/DL) 32.9 L RDW (11.5 - 14.5 %) 16.9 H Plt Count (130 - 400 /CUMM) 76 L MPV (7.4 - 10.4 FL) 9.5 Gran % (42.2 - 75.2 %) 87.5 H Lymphocytes % (20.5 - 51.1 %) 5.7 L Monocytes % (1.7 - 9.3 %) 6.7 Eosinophils % (0 - 5 %) 0 Basophils % (0.0 - 2.0 %) 0.1 Absolute Granulocytes (1.4 - 6.5 /CUMM) 14.3 H Absolute Lymphocytes (1.2 - 3.4 /CUMM) 0.9 L Absolute Monocytes (0.10 - 0.60 /CUMM) 1.1 H Absolute Eosinophils (0.0 - 0.7 /CUMM) 0 Absolute Basophils (0.0 - 0.2 /CUMM) 0 Diagnostic Data Other Results PULMONARY ARTERIES: Pulmonary arteries are normal in size. There appears to be thin, nonocclusive filling defect within the lumen of a subsegmental branch in the right upper lobe (image 219, series 2). This could represent a residual web from remote embolism. In addition, there is an area of minimal thickening along the anterior wall of the left interlobar artery as well as along the anterior wall of a subsegmental branch in the left lower lobe. These findings also could be sequela of remote embolism. No convincing evidence for an acute embolic filling defect. THORACIC AORTA: Atherosclerotic calcification of the thoracic aorta. The ascending thoracic aorta is 3.9 cm transverse diameter. The aortic lumen is poorly evaluated due to the timing of the contrast bolus for the pulmonary arteries. LUNGS AND PLEURA: There is linear strand of mucus along the tracheal wall and extending into the right mainstem bronchus and into the bronchus intermedius. [id number] centrilobular emphysema. Mild thickening of bronchial grossman in both lungs. Lungs have mosaic attenuation, possibly due to combination of the emphysema and mild edema. There is interlobular septal thickening. Also, mild septal thickening is seen in subpleural regions of the lower lung zones. Small left pleural effusion is present. CARDIOVASCULAR: The heart size is normal. Mitral valve annulus is calcified. Calcifications also observed at the level of the aortic valve. [id number] atherosclerotic calcification of coronary arteries. No pericardial effusion. No evidence of inward bowing of the interventricular septum. There is contrast reflux into the inferior vena cava and hepatic veins, which can be a manifestation of tricuspid regurgitation and/or elevated right heart pressure. MEDIASTINUM: The esophagus has normal wall thickness. The visualized portion of the thyroid gland is unremarkable. No mediastinal mass. LYMPHATICS: No pathologic sized axillary, hilar or mediastinal lymph nodes. OSSEOUS STRUCTURES: No acute findings within the extensively degenerated spine. No aggressive osseous lesions. IMPRESSION: 1. No acute pulmonary emboli are identified. There are a few findings (as noted above) that are suspicious for sequela of remote embolic disease. 2. [id number] pulmonary emphysema. 3. Lungs have mosaic attenuation; this appears to be secondary to a combination of pulmonary emphysema and mild interstitial edema. Small left pleural effusion is present. 4. There is contrast reflux into the inferior vena cava and hepatic veins, which can be a manifestation of tricuspid regurgitation and/or elevated right sided cardiac pressures. EXAMINATION: CT ABDOMEN AND PELVIS WITH IV CONTRAST CLINICAL INFORMATION: Elevated liver function tests and bilirubin levels. COMPARISON: Abdomen CT images from 10/14/2016 TECHNIQUE: Multidetector CT imaging examination of the abdomen and pelvis was performed with intravenous administration of contrast (see above) Axial images are displayed at 0.625 mm and 5 mm slice thickness. Coronal and sagittal reformatted images were generated at the technologist's workstation and submitted for review. DLP: See above FINDINGS: HEPATOBILIARY: Liver has normal size and contour. There are a few hepatic cysts, unchanged compared to 10/14/2016. No suspicious hepatic lesion or intrahepatic bile duct dilatation. Gallbladder is grossly unremarkable. PANCREAS: Unremarkable. SPLEEN: Unremarkable. ADRENAL GLANDS: Unremarkable. KIDNEYS, URETERS, BLADDER: Kidneys enhance symmetrically. No renal mass, nephrolithiasis or hydronephrosis. The ureters and urinary bladder unremarkable. GI TRACT AND PERITONEUM: Stomach is unremarkable. Loops of bowel are normal in caliber. No evidence of acute inflammation or obstruction along the gastrointestinal tract. No ascites or pneumoperitoneum. ABDOMINAL WALL: There is edema within subcutaneous tissues of the abdominal wall, flanks and back. VASCULAR: There is increased thrombus along the inner wall of the aneurysmal infrarenal aorta. The fusiform aneurysm begins approximately 3.3 cm below the level of the renal arteries and terminates above the level of bifurcation. The infrarenal abdominal aorta aneurysm measures up to 5.4 cm transverse and 5.2 cm AP, compared to 5.2 x 5 cm on 10/14/2016. Atherosclerotic disease of iliac arteries without aneurysm. LYMPH NODES: No pathologic sized lymph nodes within the abdomen or pelvis. PELVIC VISCERA: Prostate gland has central calcification. No pelvic mass. OSSEOUS STRUCTURES: Multilevel facet arthropathy and multilevel severe degenerative disc disease of the lumbar spine. 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 IMPRESSION: 1. No acute imaging findings within the abdomen or pelvis. 2. Fusiform aneurysm of the infrarenal abdominal aorta has increased thrombus along its inner wall compared to 10/14/2016. The aneurysm has slightly increased in size and currently measures up to 5.4 cm transverse (compared to 5.2 cm on 10/14/2016). Assessment/Plan Assessment/Plan Assessment: 1. Worsening dyspnea and LE edema; likely related to COPD exacerbation and probable CHF 2. Minimally elevated troponin 3. Cardiomyopathy with depressed left ventricular function and ejection fraction of 25-30% 4. Severe aortic stenosis 5. Mild pulmonary hypertension 6. VERA 7. Transaminitis 8. Thrombocytopenia; elevated PT/PTT; possible DIC 6. AAA Recommendations: - Continue to monitor on telemetry. - In view of increasing creatinine, consider Nephrology input prior to further aggressive diuresis. also, in view of the patient's aortic valve disease and depressed left ventricular function, I would pursue any further diuresis, very gingerly at the time it is reinstituted. - Echocardiogram to assess LV function and valvular function and RVSP. - Followup labs pending - Eventually the patient will likely need a cardiac catheterization - Pulmonary input pending -Hematology input noted - Consult Acknowledgment - Thank you for your consult request.
--- NOTE | 2018-01-04 08:39 | Cons- CRCU ---
Shmuel GARNER,[facility] 01/04/18 0839: General Information and HPI Consulting Request Date of Consult: 01/04/18 Requested By: Dr. Nieves Exam Limitations: no limitations History of Present Illness: The patient is 72-year-old gentleman. He presented to [facility] ED on 01/03 with presenting complain of shortness of breath, lower extremity edema and chest discomfort/congestion. He felt extremely lethargic felt he was too weak to get dressed so he called his [id number] to take him to the hospital who called the ambulance for him. Patient has been experiencing increasing shortness of breath for past 4 days. He also has been extremely experiencing increased lower extremity edema for past 4 months and increasing bruisability for the past 3 years. Patient was treated for URI on December 16 with azithromycin and prednisone taper for bronchitis. PMH -COPD, not on home oxygen and was never evaluated by pulmonology, no PFTs in the past -Infrarenal AAA for which the patient has declined surgery in the past, size 5.4 cm (5.2 in 2017) -chronic back pain on tramadol, cyclobenzaprine -Hyperlipidemia on statin -Multi-nodular goiter on survillance by every 6 months PSH -Appendectomy -Back surgeries most recent one in 2017, pathology report was negative for malignancy FH Healthy parents SH -Continues to smoke 1 pack per day, 50 pack years. -Denies any alcohol and illicit with the parents live in drug abuse. Allergies/Medications Allergies: Coded Allergies: No Known Allergies (04/27/16) Home Med List: Aspirin (Ecotrin*) 81 MG TABLET.DR 1 TAB PO DAILY HEART/BLOOD (Reported) Cyclobenzaprine HCl 10 MG TABLET 1 TAB PO PRN MUSCLE RELAXER (Reported) Rosuvastatin Calcium (Crestor) 10 MG TABLET 1 TAB PO DAILY HIGH CHOLESTROL ( Reported) Tramadol HCl 50 MG TABLET 1 TAB PO PRN PAIN (Reported) Review of Systems Review of Systems Constitutional: Reports: see HPI. 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 Home Services at Home: NONE CARLA FELDMAN [phone] Smoking Status: Current Everyday Smoker ETOH Use: occasional use Exam & Diagnostic Data Last 24 Hrs of Vital Signs/I&O Vital Signs Date Time Temp Pulse Resp B/P B/P Pulse O2 O2 Flow FiO2 Mean Ox Delivery Rate 01/04 08 96.3 89 20 112/70 93 Nasal 2.0L Cannula 01/04 0600 96 Nasal 2.0L Cannula 01/04 0346 94 Nasal 2.0L Cannula 01/04 0300 95 Nasal 2.0L Cannula 01/04 0300 97.0 85 20 110/90 95 Nasal 2.0L Cannula 01/04 0132 98 Room Air 01/04 0120 97.5 83 18 113/77 98 Room Air 01/04 0025 97.0 84 18 115/76 98 Room Air 03/ 2338 96.9 86 18 129/59 100 Room Air 01/03 2225 97.0 90 18 114/78 100 Room Air 01/03 2117 98 Room Air 01/03 2029 96.7 85 18 114/70 95 Room Air / 1852 97.0 84 20 117/70 98 Room Air / 1622 98 Room Air / 1620 97.2 86 20 115/76 100 Nasal 4.0L Cannula Intake & Output 01/04 1600 01/04 0800 01/04 0000 Intake Total Output Total 350 1000 Balance -350 -1000 Number 0 Bowel Movements Output, Urine 350 1000 Patient 158 lb 166 lb Weight Weight Bed scale Reported by Patient Measurement Method Physical Exam General Appearance: no apparent distress, alert, awake, comfortable Head: atraumatic Ears, Nose, Throat: normal pharynx Neck: normal inspection, supple Respiratory: decreased breath sounds, crackles Cardiovascular: regular rate/rhythm Gastrointestinal: normal bowel sounds, soft, non-tender Extremities: echymosis on hands, knees and legs Neurologic/Psych: oriented x 3 Cranial Nerves: normal hearing, normal speech Last 48 Hrs of Labs/Miguel: Laboratory Tests 01/04/18 0800: Lactic Acid 2.2 H 01/04/18 0530: Anion Gap 13, Estimated GFR 37 L, Glucose 112 H, Calcium 9.1, Phosphorus 5.0 H, Magnesium 2.4 H, Total Bilirubin 2.2 H, AST 637 H, ALT 1966 H, Alkaline Phosphatase 240 H, Troponin I 0.14 *H, Albumin 3.5, Total PSA Pending, PT 28.6 H, INR 2.60 H, APTT 32, Fibrinogen Activity 89 L, D-Dimer High Sensitivty 1882 H, CBC w Diff MAN DIFF ORDERED, RBC 5.12, MCV 90.2, MCH 29.4, MCHC 32.6 L, RDW 16.6 H, MPV 9.3, Gran % 93.0 H, Lymphocytes % 4.4 L, Monocytes % 2.5, Eosinophils % 0, Basophils % 0.1, Absolute Granulocytes 10.8 H, Segmented Neutrophils 94 H, Absolute Lymphocytes 0.5 L, Lymphocytes 1 L, Monocytes 5, Absolute Monocytes 0.3, Absolute Eosinophils 0, Absolute Basophils 0, Nucleated RBCs 2 H, Platelet Estimate VERIFIED BY SMEAR, Polychromasia 1+, Anisocytosis 1 +, Macrocytic Cells FEW, Target Cells RARE, Malia Cells FEW, Elliptocytes FEW, Hepatitis A IgM Ab Pending, Hep Bs Antigen Pending, Hep B Core IgM Ab Conf Pending, Hepatitis C Antibody Pending, HIV 1&2 Ab Western Blot Pending 01/04/18 0340: Lactic Acid 3.1 H 01/04/18 0200: Lactic Acid Cancelled 01/03/18 2340: Anion Gap 16, Estimated GFR 43 L, Glucose 123 H, Calcium 9.0, Phosphorus 4.9 H, Magnesium 2.3, Total Bilirubin 2.7 H, AST 715 H, ALT 2053 H, Troponin I 0.11 *H, Albumin 3.6, CBC w Diff NO MAN DIFF REQ, RBC 5.15, MCV 90.4, MCH 29.5, MCHC 32.6 L, RDW 17.2 H, MPV 9.6, Gran % 91.8 H, Lymphocytes % 5.0 L, Monocytes % 2.9, Eosinophils % 0, Basophils % 0.3, Absolute Granulocytes 12.9 H , Absolute Lymphocytes 0.7 L, Absolute Monocytes 0.4, Absolute Eosinophils 0, Absolute Basophils 0 01/03/18 2240: Lactic Acid 3.5 H 01/03/18 1730: Anion Gap 13, Estimated GFR 43 L, BUN/Creatinine Ratio 36.9 H, Glucose 109 H, Lactic Acid 4.0 H, Calcium 9.2, Total Bilirubin 2.5 H, AST 717 H, ALT 2269 H , Alkaline Phosphatase 252 H, Troponin I 0.13 *H, Lcu-M-Icsrwhwrfwq Pept 16038 H, Total Protein 6.9, Albumin 3.8, Globulin 3.1, Albumin/Globulin Ratio 1.2, Amylase 35, Lipase 139, PT 32.1 H, INR 2.91 H, APTT 31, D-Dimer High Sensitivty 1850 H, CBC w Diff NO MAN DIFF REQ, RBC 5.28, MCV 90.3, MCH 29.7, MCHC 32.9 L, RDW 16.9 H, MPV 9.5, Gran % 87.5 H, Lymphocytes % 5.7 L, Monocytes % 6.7, Eosinophils % 0, Basophils % 0.1, Absolute Granulocytes 14.3 H , Absolute Lymphocytes 0.9 L, Absolute Monocytes 1.1 H, Absolute Eosinophils 0 , Absolute Basophils 0 Assessment/Plan CRCU Impression/Plan: The patient is 72-year-old gentleman with history of COPD infrarenal aortic aneurysm, hyperlipidemia and back pain. Who presented to [facility] ED with current complaint of dyspnea lower extremity edema and chest discomfort. -Vitals on presentation WNL -Admission labs significant for leukocytosis 16.4, thrombocytopenia 76, transaminitis AST 7.7, ALT 2269, hyperbilirubinemia 2.5, hyponatremia 133, VERA cr 1.6, troponin 0.13, lactic acidosis f4 -Lower extremity negative for DVT, CTA negative for acute PE however suggestive of previous emboli, moderate to severe emphysema with reflux into inferior vena cava suggested a right cardiac etiology, infrarenal abdominal aortic aneurysm 5.4 cm. RUQ negative Echo pending -Patient received IV methylprednisolone, IV furosemide 40 mg and TRC in the ED. He was started on IV Lasix 40mg BID * Worsening dyspnea lower extremity edema likely secondary to cor pulmonale, right-sided heart failure due to COPD * Transaminitis likely secondary to liver congestion * Thrombocytopenia,low fibrinogen most likely congestive coagulopathy * VERA cardiorenal? worsened by lasix, IV contrast * Elevated troponin multifactorial * Lactic acidosis hypoperfusion versus liver dysfunction * Leukocytosis probably reactive vs sepsis no probable source? #Dyspnea Patient has history of COPD with 50 pack years of smoking, he presented with Worsening dyspnea for the past 4 days and increasing lower [place] [id number]. CTA negative for PE but suggestive of contrast reflux into the inferior vena cava suggestive of Right-sided cardiac pathology. It is very likely that patient has a cor pulmanlae secondary to COPD causing right-sided heart failure -Echocardiogram Doppler pending -Oxygen supplementation to maintain oxygen saturation above 90% -TRC/nebulization treatment -IV lasix on hold #Hyperbilirubinemia and transaminitis improving Most likely secondary to liver congestion -Continue to monitor -Hepatitis panel, HIV #Thrombocytopenia, Low Fibrinogen Possible etiologies includes congestive coagulopathy secondary to liver congestion, consumption coagulopathy with abdominal aortic aneurysm, DIC (sepsis , malignancy) and PE. Most likely patient has congestive cardiopathy secondary to liver congestion in setting of right heart failure. PE has been ruled out, patient does not appear to be in sepsis hemodynamically stable no source of infection, there were no schistocytes present on the smear -Transfuse one bag of cryoprecipitate -Consider platelet transfusion if <20 -Hematology service contacted -Repeat CBC, PT, fibrinogen @4pm -If active bleeding consider fresh percent plasma #VERA Possible etiologies cardiorenal syndrome, worsened with lasix and IV contrast -Nephrology consult -Monitor creatinine will probably increase 2/2 contrast -Encourage oral intake -Avoid nephrotoxins -Lasix put on hold #Elveated Troponis Possible etiology can be right-sided heart failure, acute renal failure, pulmonary hypertension 0.13, 0.11, 0.14, No EKG chages -Continue to monitor #Leukocytosis/ rule out sepsis Presented with a WBC count of 16 can be reactive. NO bands. There is no obvious source of infection. Patient is afebrile and hemodynamically stable. He does have lactic acidosis but that can be explained by other etiologies as well -Continue to monitor fever and WBC curve -Pancultured -Monitor off antibiotics #Lactic acidosis Improving, can be secondary to liver dysfunction, intravascular hypoperfusion? spesis unlikely -Continue to trend Diet Heart healthy diet DVT prophylaxis with ALPS only in Setting of Thrombocytopenia Full Code Recommendations: I believe patient does not require ICU monitoring and can be downgraded to cardiac floor Consult Acknowledgment - Thank you for your consult request. Rui GARNER,[facility] 01/04/18 5626: Assessment/Plan CRCU Other Findings/Comments: Seen and examined independently History as above physical exam as noted above agree with above Significant data reviewed Creatinine is up to 1.8 baseline was 1 BUN is 57 Lactic acid level which was elevated now is normal Bilirubin level seems to be getting down alkaline phosphatase 240 AST ALT 267 and 1966 White count 11.6 no significant anemia Patient has significant thrombocytopenia with elevated INR and the evidence of DIC This is a gentleman with history of significant smoking, severe COPD, baseline creatinine of 1, ongoing smoking, expanding AAA, dyslipidemia, came in with progressive dyspnea increased lower extremity edema with very mild hypoxemia. Since he came in here it appears that he probably does have significant right heart failure with clinical evidence suggestive of congestive liver with transaminitis and also he was found to be coagulopathic with high INR, low platelets with no clinical evidence suggestive of thrombotic thrombocytopenia. ISSUES * Worsening dyspnea lower extremity edema most likely related to right heart failure from his COPD compounded by severe LV dysfunction with critical * Severe COPD with no clinical evidence suggestive of wheezing or COPD exacerbation or infection * Severe cardiomyopathy with significantly depressed ejection fraction and Severe aortic stenosis * Elevated troponin with EKG changes, with LVWMA rule out ischemia and pt may need cardiac cath if his coagulopathy and other issues resolve * Acute kidney injury most likely related to right heart dysfunction, now pt is s/p contrast * Significant transaminitis with no clinical suggestive evidence of obstructive jaundice * Thrombocytopenia associated with coagulopathy most likely associated with right heart failure. No evidence suggestive of venous thromboembolism. No clinical evidence suggestive of TTP with no schistocytes. Differential diagnoses of broad hematology evaluation already noted and differential diagnoses include most likely cor pulmonale with passive congestion, unlikely test this is sepsis, consumptive coagulopathy due to aneurysm however vascular surgery consult noted and at this time clinically stable, with no evidence suggestive of leak * Enlarging AAA vascular surgery consult noted. Patient does have increased thrombus noted along its in the wall of the AAA * Significant small airway disease which is made worse and by mild left heart failure as well * Ongoing smoking, PVD, and multiple other risk factors RECOMMENDATION * Continue nebulizer only if he is wheezing * Hold steroids * Watch his urine output carefully * Check his lab work as noted by hematology and transfuse cryoprecipitate for fibrinogen level less than 100 * Watch for active bleeding give FFP if needed * Watch his platelets every 12 hours and if it's less than 20,000 needs platelet transfusion on if he is actively bleeding * Hold antibiotics and await cultures * Check urinary and strep pneumo antigen and leigenella antigen * Patient appears euvolemic at this time avoid diuresis * As he does have critical aortic stenosis and significant right heart dysfunction if he does have worsening renal insufficiency a trial of very low- dose IV fluids may be necessary, as he did recently receive contrast as well. * If he becomes hypoxemic and has acute pulmonary edema by clinical exam then we will trial a dose of Lasix. * Po ppi * Venodyne boots Pt is critically ill and tts 40 mins Consult Acknowledgment - Thank you for your consult request.
--- NOTE | 2018-01-04 09:38 | Cons- Hematology ---
General Information and HPI Consulting Request Date of Consult: 01/04/18 Requested By: Leonard Nieves MD History of Present Illness: 7-year-old man resented to the emergency room with increasing shortness of breath. Patient had mild chest discomfort not associated with hemoptysis. Patient denied productive cough Patient denied fever chills. Patient has easy bruisability 4 years. Allergies/Medications Allergies: Coded Allergies: No Known Allergies (04/27/16) Home Med List: Aspirin (Ecotrin*) 81 MG TABLET.DR 1 TAB PO DAILY HEART/BLOOD (Reported) Cyclobenzaprine HCl 10 MG TABLET 1 TAB PO PRN MUSCLE RELAXER (Reported) Rosuvastatin Calcium (Crestor) 10 MG TABLET 1 TAB PO DAILY HIGH CHOLESTROL ( Reported) Tramadol HCl 50 MG TABLET 1 TAB PO PRN PAIN (Reported) Current Medications: Current Medications Sig/Yousuf Start time Last Medication Dose Route Stop Time Status Admin Albuterol Sulfate 3 ML ONCE ONE 01/03 1745 DC 01/03 INH 01/03 1746 1749 Aspirin 0 .STK-MED ONE 01/04 0122 DC PO Aspirin 243 MG ONCE ONE 01/04 0100 DC 01/04 PO 01/04 0101 0120 Furosemide 40 MG 7:30 AM, & 4:30 PM 01/04 0730 DC 01/04 IV 0906 Furosemide 0 .STK-MED ONE 01/03 1802 DC IV Furosemide 40 MG ONCE ONE 01/03 1745 DC / IV 01/03 1746 1807 Ipratropium Glasco 2.5 ML ONCE ONE 01/03 1745 DC 01/03 INH 01/03 1746 1749 Methylprednisolone 0 .STK-MED ONE 01/03 1802 DC .ROUTE Methylprednisolone 125 MG ONCE ONE 01/03 1745 DC / IV 01/03 1746 1807 Tramadol HCl 0 .STK-MED ONE 01/03 2254 DC PO Tramadol HCl 50 MG ONCE ONE 01/03 2245 DC / PO / 224 2251 Review of Systems Review of Systems: Patient denies headaches or dizziness. Patient denies nausea vomiting abdominal pain or change in bowel habits. Patient denies dysuria hematuria. Patient denies new bone pain. She denies focal neurologic deficit. 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 Home Services at Home: NONE CARLA FELDMAN [phone] Smoking Status: Current Everyday Smoker ETOH Use: occasional use Exam & Diagnostic Data Vital Signs and I&O Vital Signs Date Time Temp Pulse Resp B/P B/P Pulse O2 O2 Flow FiO2 Mean Ox Delivery Rate 01/04 08 96.3 89 20 112/70 93 Nasal 2.0L Cannula 01/04 0600 96 Nasal 2.0L Cannula 01/04 0346 94 Nasal 2.0L Cannula 01/04 0300 95 Nasal 2.0L Cannula 01/04 0300 97.0 85 20 110/90 95 Nasal 2.0L Cannula / 0132 98 Room Air / 0120 97.5 83 18 113/77 98 Room Air / 0025 97.0 84 18 115/76 98 Room Air 03/06 2338 96.9 86 18 129/59 100 Room Air 03/06 2225 97.0 90 18 114/78 100 Room Air 03/06 2117 98 Room Air 03/06 2029 96.7 85 18 114/70 95 Room Air 03/06 1852 97.0 84 20 117/70 98 Room Air 03/06 1622 98 Room Air 03/06 1620 97.2 86 20 115/76 100 Nasal 4.0L Cannula Intake & Output / 1600 01/04 0800 01/04 0000 Intake Total Output Total 350 1000 Balance -350 -1000 Number 0 Bowel Movements Output, Urine 350 1000 Patient 158 lb 166 lb Weight Weight Bed scale Reported by Patient Measurement Method Gen.: in NAD ENT: Sclera anicteric Chest: Normal respiratory effort, decreased breath sounds Cor: RRR, Abdomen: Soft, bowel sounds present, no tenderness, no rebound Extremities: Without clubbing, cyanosis, or asymmetric edema Neurology: Alert and oriented 3, no gross deficit Skin: Scattered ecchymoses Last 48 Hours of Lab Results: Laboratory Tests 01/04 01/04 01/04 0800 0530 0340 Chemistry Sodium (137 - 145 mmol/L) 136 L Potassium (3.5 - 5.1 mmol/L) 4.3 Chloride (98 - 107 mmol/L) 96 L Carbon Dioxide (22 - 30 mmol/L) 26 Anion Gap (5 - 16) 13 BUN (9 - 20 mg/dL) 57 H Creatinine (0.7 - 1.2 mg/dL) 1.8 H Estimated GFR (>60 ml/min) 37 L Glucose (65 - 99 mg/dL) 112 H Lactic Acid (0.7 - 2.1 mmol/L) 2.2 H 3.1 H Calcium (8.4 - 10.2 mg/dL) 9.1 Phosphorus (2.5 - 4.5 mg/dL) 5.0 H Magnesium (1.6 - 2.3 mg/dL) 2.4 H Total Bilirubin (0.2 - 1.3 mg/dL) 2.2 H AST (17 - 59 U/L) 637 H ALT (21 - 72 U/L) 1966 H Troponin I (<0.11 ng/ml) 0.14 *H Albumin (3.5 - 5.0 g/dL) 3.5 Coagulation PT (9.4 - 12.5 SEC) 28.6 H INR (0.90 - 1.17) 2.60 H APTT (25 - 37 SEC) 32 Fibrinogen Activity (200 - 393 MG/DL) 89 L D-Dimer High Sensitivty (0 - 243 ng/ml) 1882 H Hematology CBC w Diff MAN DIFF ORDERED WBC (4.8 - 10.8 /CUMM) 11.6 H RBC (4.70 - 6.10 /CUMM) 5.12 Hgb (14.0 - 18.0 G/DL) 15.1 Hct (42 - 52 %) 46.2 MCV (80.0 - 94.0 FL) 90.2 MCH (27.0 - 31.0 PG) 29.4 MCHC (33.0 - 37.0 G/DL) 32.6 L RDW (11.5 - 14.5 %) 16.6 H Plt Count (130 - 400 /CUMM) 58 L MPV (7.4 - 10.4 FL) 9.3 Gran % (42.2 - 75.2 %) 93.0 H Lymphocytes % (20.5 - 51.1 %) 4.4 L Monocytes % (1.7 - 9.3 %) 2.5 Eosinophils % (0 - 5 %) 0 Basophils % (0.0 - 2.0 %) 0.1 Absolute Granulocytes (1.4 - 6.5 /CUMM) 10.8 H Segmented Neutrophils (42.2 - 75.2 %) 94 H Absolute Lymphocytes (1.2 - 3.4 /CUMM) 0.5 L Lymphocytes (20.5 - 51.1 %) 1 L Monocytes (1.7 - 9.3 %) 5 Absolute Monocytes (0.10 - 0.60 /CUMM) 0.3 Absolute Eosinophils (0.0 - 0.7 /CUMM) 0 Absolute Basophils (0.0 - 0.2 /CUMM) 0 Nucleated RBCs (0.0 - 0.0 /100WBC) 2 H Platelet Estimate (ADEQUATE) VERIFIED BY SMEAR Polychromasia 1+ Anisocytosis 1+ Macrocytic Cells FEW Target Cells RARE Malia Cells FEW Elliptocytes FEW 01/04 03/ 03/06 0200 2340 2240 Chemistry Sodium (137 - 145 mmol/L) 135 L Potassium (3.5 - 5.1 mmol/L) 4.4 Chloride (98 - 107 mmol/L) 95 L Carbon Dioxide (22 - 30 mmol/L) 24 Anion Gap (5 - 16) 16 BUN (9 - 20 mg/dL) 58 H Creatinine (0.7 - 1.2 mg/dL) 1.6 H Estimated GFR (>60 ml/min) 43 L Glucose (65 - 99 mg/dL) 123 H Lactic Acid (0.7 - 2.1 mmol/L) Cancelled 3.5 H Calcium (8.4 - 10.2 mg/dL) 9.0 Phosphorus (2.5 - 4.5 mg/dL) 4.9 H Magnesium (1.6 - 2.3 mg/dL) 2.3 Total Bilirubin (0.2 - 1.3 mg/dL) 2.7 H AST (17 - 59 U/L) 715 H ALT (21 - 72 U/L) 2053 H Troponin I (<0.11 ng/ml) 0.11 *H Albumin (3.5 - 5.0 g/dL) 3.6 Hematology CBC w Diff NO MAN DIFF REQ WBC (4.8 - 10.8 /CUMM) 14.0 H RBC (4.70 - 6.10 /CUMM) 5.15 Hgb (14.0 - 18.0 G/DL) 15.2 Hct (42 - 52 %) 46.5 MCV (80.0 - 94.0 FL) 90.4 MCH (27.0 - 31.0 PG) 29.5 MCHC (33.0 - 37.0 G/DL) 32.6 L RDW (11.5 - 14.5 %) 17.2 H Plt Count (130 - 400 /CUMM) 76 L MPV (7.4 - 10.4 FL) 9.6 Gran % (42.2 - 75.2 %) 91.8 H Lymphocytes % (20.5 - 51.1 %) 5.0 L Monocytes % (1.7 - 9.3 %) 2.9 Eosinophils % (0 - 5 %) 0 Basophils % (0.0 - 2.0 %) 0.3 Absolute Granulocytes (1.4 - 6.5 /CUMM) 12.9 H Absolute Lymphocytes (1.2 - 3.4 /CUMM) 0.7 L Absolute Monocytes (0.10 - 0.60 /CUMM) 0.4 Absolute Eosinophils (0.0 - 0.7 /CUMM) 0 Absolute Basophils (0.0 - 0.2 /CUMM) 0 03/06 1730 Chemistry Sodium (137 - 145 mmol/L) 133 L Potassium (3.5 - 5.1 mmol/L) 5.1 Chloride (98 - 107 mmol/L) 96 L Carbon Dioxide (22 - 30 mmol/L) 24 Anion Gap (5 - 16) 13 BUN (9 - 20 mg/dL) 59 H Creatinine (0.7 - 1.2 mg/dL) 1.6 H Estimated GFR (>60 ml/min) 43 L BUN/Creatinine Ratio (7 - 25 %) 36.9 H Glucose (65 - 99 mg/dL) 109 H Lactic Acid (0.7 - 2.1 mmol/L) 4.0 H Calcium (8.4 - 10.2 mg/dL) 9.2 Total Bilirubin (0.2 - 1.3 mg/dL) 2.5 H AST (17 - 59 U/L) 717 H ALT (21 - 72 U/L) 2269 H Alkaline Phosphatase (< 127 U/L) 252 H Troponin I (<0.11 ng/ml) 0.13 *H Yga-Y-Jaewqarnanm Pept (<125 pg/mL) 09286 H Total Protein (6.3 - 8.2 g/dL) 6.9 Albumin (3.5 - 5.0 g/dL) 3.8 Globulin (1.9 - 4.2 gm/dL) 3.1 Albumin/Globulin Ratio (1.1 - 2.2 %) 1.2 Amylase (30 - 110 U/L) 35 Lipase (23 - 300 U/L) 139 Coagulation PT (9.4 - 12.5 SEC) 32.1 H INR (0.90 - 1.17) 2.91 H APTT (25 - 37 SEC) 31 D-Dimer High Sensitivty (0 - 243 ng/ml) 1850 H Hematology CBC w Diff NO MAN DIFF REQ WBC (4.8 - 10.8 /CUMM) 16.4 H RBC (4.70 - 6.10 /CUMM) 5.28 Hgb (14.0 - 18.0 G/DL) 15.7 Hct (42 - 52 %) 47.6 MCV (80.0 - 94.0 FL) 90.3 MCH (27.0 - 31.0 PG) 29.7 MCHC (33.0 - 37.0 G/DL) 32.9 L RDW (11.5 - 14.5 %) 16.9 H Plt Count (130 - 400 /CUMM) 76 L MPV (7.4 - 10.4 FL) 9.5 Gran % (42.2 - 75.2 %) 87.5 H Lymphocytes % (20.5 - 51.1 %) 5.7 L Monocytes % (1.7 - 9.3 %) 6.7 Eosinophils % (0 - 5 %) 0 Basophils % (0.0 - 2.0 %) 0.1 Absolute Granulocytes (1.4 - 6.5 /CUMM) 14.3 H Absolute Lymphocytes (1.2 - 3.4 /CUMM) 0.9 L Absolute Monocytes (0.10 - 0.60 /CUMM) 1.1 H Absolute Eosinophils (0.0 - 0.7 /CUMM) 0 Absolute Basophils (0.0 - 0.2 /CUMM) 0 Peripheral smear-personally reviewed-no schistocytes, decreased platelets Imaging/Other Studies: Doppler-no lower extremity DVT [id number] obvious acute pulmonary emboli,? Previous Emboli, COPD, on is consistent with right heart failure Assessment/Plan Assessment: 1. Thrombocytopenia/coagulopathy-in the setting of possible right heart failure , no acute pulmonary emboli, doubt TTP. No schistocytosis was present.? Related to cor pulmonale and passive congestion.? Sepsis ? Consumptive coagulopathy due to aneurysm.? Patient appears clinically stable at this point. Recommend- Follow CBC, PT, PTT, fibrinogen Transfuse cryoprecipitate for fibrinogen <100 If active bleeding, FFP Transfuse platelets if <20,000 or active bleeding Check PSA Rule out sepsis As per cardiology service I have discussed this with patient and the house staff Recommendations: .. Consult Acknowledgment - Thank you for your consult request.
--- NOTE | 2018-01-04 10:44 | Cons- Vascular Surgery ---
See Addendum General Information and HPI Consulting Request Date of Consult: 01/04/18 Requested By: Leonard Nieves MD Reason for Consult: incidental AAA on CT found to be larger than previous CT from Sep 2016 Source of Information: patient Exam Limitations: poor historian History of Present Illness: Pt with hx of COPD, not on home O2, in ICU for dyspnea and lower extremity swelling liekly due to worsening CHF. On CT, he was found to have an infrarenal AAA that is 5.4cm in diameter. This is an increase from previous CT in Sep 2016 which measured diameter at 5.2cm. Pt states that he has a vascular surgeon although he can not remember his name or the name of the group but that he saw him last 1 year ago. States that he previously refused elective repair of the AAA. He currently denies abd pain. Allergies/Medications Allergies: Coded Allergies: No Known Allergies (04/27/16) Home Med List: Aspirin (Ecotrin*) 81 MG TABLET.DR 1 TAB PO DAILY HEART/BLOOD (Reported) Cyclobenzaprine HCl 10 MG TABLET 1 TAB PO PRN MUSCLE RELAXER (Reported) Rosuvastatin Calcium (Crestor) 10 MG TABLET 1 TAB PO DAILY HIGH CHOLESTROL ( Reported) Tramadol HCl 50 MG TABLET 1 TAB PO PRN PAIN (Reported) Past History Medical History Blood Transfusion Hx: No Neurological: NONE EENT: NONE Cardiovascular: aortic aneurysm, hyperlipidemia Respiratory: COPD Gastrointestinal: AAA Hepatic: NONE Renal: NONE Musculoskeletal: NONE Psychiatric: NONE Endocrine: NONE Blood Disorders: NONE Cancer(s): NONE [employer]/Reproductive: NONE Surgical History Pertinent Surgical History: non-contributory Psychosocial History Where Do You Live? Home Services at Home: NONE CARLA FELDMAN [phone] Smoking Status: Current Everyday Smoker ETOH Use: occasional use Review of Systems Review of Systems: as per HPI Exam & Diagnostic Data Vital Signs and I&O Vital Signs Date Time Temp Pulse Resp B/P B/P Pulse O2 O2 Flow FiO2 Mean Ox Delivery Rate 01/04 08 96.3 89 20 112/70 93 Nasal 2.0L Cannula 01/04 0600 96 Nasal 2.0L Cannula 01/04 0346 94 Nasal 2.0L Cannula 01/04 0300 95 Nasal 2.0L Cannula 01/04 030 97.0 85 20 110/90 95 Nasal 2.0L Cannula 01/04 0132 98 Room Air 01/04 0120 97.5 83 18 113/77 98 Room Air 01/04 0025 97.0 84 18 115/76 98 Room Air 01/03 2338 96.9 86 18 129/59 100 Room Air 01/03 2225 97.0 90 18 114/78 100 Room Air 01/03 2117 98 Room Air 01/03 2029 96.7 85 18 114/70 95 Room Air 01/03 1852 97.0 84 20 117/70 98 Room Air 01/03 1622 98 Room Air 01/03 1620 97.2 86 20 115/76 100 Nasal 4.0L Cannula Intake & Output 01/04 1600 01/04 0800 01/04 0000 01/03 1600 01/03 0800 01/03 0000 Intake Total Output Total 350 1000 Balance -350 -1000 Number 0 Bowel Movements Output, Urine 350 1000 Patient 158 lb 166 lb Weight Weight Bed scale Reported by Patient Measurement Method Physical Exam: gen- pt appears SOB while talking, on O2 nasal canula HEENT- mucus membranes dry, EOMI, sclera nonicteric, nares patent neck- no bruits resp- decreased breath sound bilat cardio-RRR abd- ND, +BS, nontender, soft ext- 2+ femoral pulse bilat, unable to appreciate PT or DP pulses due to edema. 2+ pedal edema bilaterally. erythema and petichiae on dorsal aspect of both feet. distal sensory and motor function intact Last 24 Hours of Labs: Laboratory Tests 01/04 01/04 01/04 0800 0530 0340 Chemistry Sodium (137 - 145 mmol/L) 136 L Potassium (3.5 - 5.1 mmol/L) 4.3 Chloride (98 - 107 mmol/L) 96 L Carbon Dioxide (22 - 30 mmol/L) 26 Anion Gap (5 - 16) 13 BUN (9 - 20 mg/dL) 57 H Creatinine (0.7 - 1.2 mg/dL) 1.8 H Estimated GFR (>60 ml/min) 37 L Glucose (65 - 99 mg/dL) 112 H Lactic Acid (0.7 - 2.1 mmol/L) 2.2 H 3.1 H Calcium (8.4 - 10.2 mg/dL) 9.1 Phosphorus (2.5 - 4.5 mg/dL) 5.0 H Magnesium (1.6 - 2.3 mg/dL) 2.4 H Total Bilirubin (0.2 - 1.3 mg/dL) 2.2 H AST (17 - 59 U/L) 637 H ALT (21 - 72 U/L) 1966 H Alkaline Phosphatase (< 127 U/L) Pending Troponin I (<0.11 ng/ml) 0.14 *H Albumin (3.5 - 5.0 g/dL) 3.5 Coagulation PT (9.4 - 12.5 SEC) 28.6 H INR (0.90 - 1.17) 2.60 H APTT (25 - 37 SEC) 32 Fibrinogen Activity (200 - 393 MG/DL) 89 L D-Dimer High Sensitivty (0 - 243 ng/ml) 1882 H Hematology CBC w Diff MAN DIFF ORDERED WBC (4.8 - 10.8 /CUMM) 11.6 H RBC (4.70 - 6.10 /CUMM) 5.12 Hgb (14.0 - 18.0 G/DL) 15.1 Hct (42 - 52 %) 46.2 MCV (80.0 - 94.0 FL) 90.2 MCH (27.0 - 31.0 PG) 29.4 MCHC (33.0 - 37.0 G/DL) 32.6 L RDW (11.5 - 14.5 %) 16.6 H Plt Count (130 - 400 /CUMM) 58 L MPV (7.4 - 10.4 FL) 9.3 Gran % (42.2 - 75.2 %) 93.0 H Lymphocytes % (20.5 - 51.1 %) 4.4 L Monocytes % (1.7 - 9.3 %) 2.5 Eosinophils % (0 - 5 %) 0 Basophils % (0.0 - 2.0 %) 0.1 Absolute Granulocytes (1.4 - 6.5 /CUMM) 10.8 H Segmented Neutrophils (42.2 - 75.2 %) 94 H Absolute Lymphocytes (1.2 - 3.4 /CUMM) 0.5 L Lymphocytes (20.5 - 51.1 %) 1 L Monocytes (1.7 - 9.3 %) 5 Absolute Monocytes (0.10 - 0.60 /CUMM) 0.3 Absolute Eosinophils (0.0 - 0.7 /CUMM) 0 Absolute Basophils (0.0 - 0.2 /CUMM) 0 Nucleated RBCs (0.0 - 0.0 /100WBC) 2 H Platelet Estimate (ADEQUATE) VERIFIED BY SMEAR Polychromasia 1+ Anisocytosis 1+ Macrocytic Cells FEW Target Cells RARE Malia Cells FEW Elliptocytes FEW Serology Hepatitis A IgM Ab (NONREACTIVE) Pending Hep Bs Antigen (NONREACTIVE) Pending Hep B Core IgM Ab Conf (NONREACTIVE) Pending Hepatitis C Antibody (NONREACTIVE) Pending HIV 1&2 Ab Western Blot (NONREACTIVE) Pending 01/04 01/03 01/03 0200 2340 2240 Chemistry Sodium (137 - 145 mmol/L) 135 L Potassium (3.5 - 5.1 mmol/L) 4.4 Chloride (98 - 107 mmol/L) 95 L Carbon Dioxide (22 - 30 mmol/L) 24 Anion Gap (5 - 16) 16 BUN (9 - 20 mg/dL) 58 H Creatinine (0.7 - 1.2 mg/dL) 1.6 H Estimated GFR (>60 ml/min) 43 L Glucose (65 - 99 mg/dL) 123 H Lactic Acid (0.7 - 2.1 mmol/L) Cancelled 3.5 H Calcium (8.4 - 10.2 mg/dL) 9.0 Phosphorus (2.5 - 4.5 mg/dL) 4.9 H Magnesium (1.6 - 2.3 mg/dL) 2.3 Total Bilirubin (0.2 - 1.3 mg/dL) 2.7 H AST (17 - 59 U/L) 715 H ALT (21 - 72 U/L) 2053 H Troponin I (<0.11 ng/ml) 0.11 *H Albumin (3.5 - 5.0 g/dL) 3.6 Hematology CBC w Diff NO MAN DIFF REQ WBC (4.8 - 10.8 /CUMM) 14.0 H RBC (4.70 - 6.10 /CUMM) 5.15 Hgb (14.0 - 18.0 G/DL) 15.2 Hct (42 - 52 %) 46.5 MCV (80.0 - 94.0 FL) 90.4 MCH (27.0 - 31.0 PG) 29.5 MCHC (33.0 - 37.0 G/DL) 32.6 L RDW (11.5 - 14.5 %) 17.2 H Plt Count (130 - 400 /CUMM) 76 L MPV (7.4 - 10.4 FL) 9.6 Gran % (42.2 - 75.2 %) 91.8 H Lymphocytes % (20.5 - 51.1 %) 5.0 L Monocytes % (1.7 - 9.3 %) 2.9 Eosinophils % (0 - 5 %) 0 Basophils % (0.0 - 2.0 %) 0.3 Absolute Granulocytes (1.4 - 6.5 /CUMM) 12.9 H Absolute Lymphocytes (1.2 - 3.4 /CUMM) 0.7 L Absolute Monocytes (0.10 - 0.60 /CUMM) 0.4 Absolute Eosinophils (0.0 - 0.7 /CUMM) 0 Absolute Basophils (0.0 - 0.2 /CUMM) 0 03/06 1730 Chemistry Sodium (137 - 145 mmol/L) 133 L Potassium (3.5 - 5.1 mmol/L) 5.1 Chloride (98 - 107 mmol/L) 96 L Carbon Dioxide (22 - 30 mmol/L) 24 Anion Gap (5 - 16) 13 BUN (9 - 20 mg/dL) 59 H Creatinine (0.7 - 1.2 mg/dL) 1.6 H Estimated GFR (>60 ml/min) 43 L BUN/Creatinine Ratio (7 - 25 %) 36.9 H Glucose (65 - 99 mg/dL) 109 H Lactic Acid (0.7 - 2.1 mmol/L) 4.0 H Calcium (8.4 - 10.2 mg/dL) 9.2 Total Bilirubin (0.2 - 1.3 mg/dL) 2.5 H AST (17 - 59 U/L) 717 H ALT (21 - 72 U/L) 2269 H Alkaline Phosphatase (< 127 U/L) 252 H Troponin I (<0.11 ng/ml) 0.13 *H [id number]-Ohzccpbastl Pept (<125 pg/mL) 33089 H Total Protein (6.3 - 8.2 g/dL) 6.9 Albumin (3.5 - 5.0 g/dL) 3.8 Globulin (1.9 - 4.2 gm/dL) 3.1 Albumin/Globulin Ratio (1.1 - 2.2 %) 1.2 Amylase (30 - 110 U/L) 35 Lipase (23 - 300 U/L) 139 Coagulation PT (9.4 - 12.5 SEC) 32.1 H INR (0.90 - 1.17) 2.91 H APTT (25 - 37 SEC) 31 D-Dimer High Sensitivty (0 - 243 ng/ml) 1850 H Hematology CBC w Diff NO MAN DIFF REQ WBC (4.8 - 10.8 /CUMM) 16.4 H RBC (4.70 - 6.10 /CUMM) 5.28 Hgb (14.0 - 18.0 G/DL) 15.7 Hct (42 - 52 %) 47.6 MCV (80.0 - 94.0 FL) 90.3 MCH (27.0 - 31.0 PG) 29.7 MCHC (33.0 - 37.0 G/DL) 32.9 L RDW (11.5 - 14.5 %) 16.9 H Plt Count (130 - 400 /CUMM) 76 L MPV (7.4 - 10.4 FL) 9.5 Gran % (42.2 - 75.2 %) 87.5 H Lymphocytes % (20.5 - 51.1 %) 5.7 L Monocytes % (1.7 - 9.3 %) 6.7 Eosinophils % (0 - 5 %) 0 Basophils % (0.0 - 2.0 %) 0.1 Absolute Granulocytes (1.4 - 6.5 /CUMM) 14.3 H Absolute Lymphocytes (1.2 - 3.4 /CUMM) 0.9 L Absolute Monocytes (0.10 - 0.60 /CUMM) 1.1 H Absolute Eosinophils (0.0 - 0.7 /CUMM) 0 Absolute Basophils (0.0 - 0.2 /CUMM) 0 Imaging Results: EXAM TYPE: CAT - CT ABD & PELVIS W IV CONTRAST; CTA CHEST-PULMONARY EMBOLISM EXAMINATION: CT ANGIOGRAM OF THE CHEST WITH CONTRAST (CT PULMONARY ANGIOGRAM FOR PE) CLINICAL INFORMATION: Shortness of breath and elevated D-dimer. COMPARISON: No pertinent prior studies are available for comparison. TECHNIQUE: Prior to contrast administration, noncontrast localization images were obtained. Subsequently, multidetector volumetric imaging was performed from the thoracic inlet to below the diaphragms following the administration of 95 mL Optiray 350 intravenous contrast. No contrast reaction reported. Sagittal, coronal, and MIP oblique sagittal reformatted images were obtained on the CT workstation, uploaded to PACS, and reviewed. DLP: Total exam dose-length product 725 mGy-cm FINDINGS: QUALITY OF STUDY/CONTRAST BOLUS: Satisfactory. PULMONARY ARTERIES: Pulmonary arteries are normal in size. There appears to be thin, nonocclusive filling defect within the lumen of a subsegmental branch in the right upper lobe (image 219, series 2). This could represent a residual web from remote embolism. In addition, there is an area of minimal thickening along the anterior wall of the left interlobar artery as well as along the anterior wall of a subsegmental branch in the left lower lobe. These findings also could be sequela of remote embolism. No convincing evidence for an acute embolic filling defect. THORACIC AORTA: Atherosclerotic calcification of the thoracic aorta. The ascending thoracic aorta is 3.9 cm transverse diameter. The aortic lumen is poorly evaluated due to the timing of the contrast bolus for the pulmonary arteries. LUNGS AND PLEURA: There is linear strand of mucus along the tracheal wall and extending into the right mainstem bronchus and into the bronchus intermedius. [id number]-he-[id number] centrilobular emphysema. Mild thickening of bronchial grossman in both lungs. Lungs have mosaic attenuation, possibly due to combination of the emphysema and mild edema. There is interlobular septal thickening. Also, mild septal thickening is seen in subpleural regions of the lower lung zones. Small left pleural effusion is present. CARDIOVASCULAR: The heart size is normal. Mitral valve annulus is calcified. Calcifications also observed at the level of the aortic valve. [id number] atherosclerotic calcification of coronary arteries. No pericardial effusion. No evidence of inward bowing of the interventricular septum. There is contrast reflux into the inferior vena cava and hepatic veins, which can be a manifestation of tricuspid regurgitation and/or elevated right heart pressure. MEDIASTINUM: The esophagus has normal wall thickness. The visualized portion of the thyroid gland is unremarkable. No mediastinal mass. LYMPHATICS: No pathologic sized axillary, hilar or mediastinal lymph nodes. OSSEOUS STRUCTURES: No acute findings within the extensively degenerated spine. No aggressive osseous lesions. IMPRESSION: 1. No acute pulmonary emboli are identified. There are a few findings (as noted above) that are suspicious for sequela of remote embolic disease. 2. [id number] pulmonary emphysema. 3. Lungs have mosaic attenuation; this appears to be secondary to a combination of pulmonary emphysema and mild interstitial edema. Small left pleural effusion is present. 4. There is contrast reflux into the inferior vena cava and hepatic veins, which can be a manifestation of tricuspid regurgitation and/or elevated right sided cardiac pressures. EXAMINATION: CT ABDOMEN AND PELVIS WITH IV CONTRAST CLINICAL INFORMATION: Elevated liver function tests and bilirubin levels. COMPARISON: Abdomen CT images from 10/14/2016 TECHNIQUE: Multidetector CT imaging examination of the abdomen and pelvis was performed with intravenous administration of contrast (see above) Axial images are displayed at 0.625 mm and 5 mm slice thickness. Coronal and sagittal reformatted images were generated at the technologist's workstation and submitted for review. DLP: See above FINDINGS: HEPATOBILIARY: Liver has normal size and contour. There are a few hepatic cysts, unchanged compared to 10/14/2016. No suspicious hepatic lesion or intrahepatic bile duct dilatation. Gallbladder is grossly unremarkable. PANCREAS: Unremarkable. SPLEEN: Unremarkable. ADRENAL GLANDS: Unremarkable. KIDNEYS, URETERS, BLADDER: Kidneys enhance symmetrically. No renal mass, nephrolithiasis or hydronephrosis. The ureters and urinary bladder unremarkable. GI TRACT AND PERITONEUM: Stomach is unremarkable. Loops of bowel are normal in caliber. No evidence of acute inflammation or obstruction along the gastrointestinal tract. No ascites or pneumoperitoneum. ABDOMINAL WALL: There is edema within subcutaneous tissues of the abdominal wall, flanks and back. VASCULAR: There is increased thrombus along the inner wall of the aneurysmal infrarenal aorta. The fusiform aneurysm begins approximately 3.3 cm below the level of the renal arteries and terminates above the level of bifurcation. The infrarenal abdominal aorta aneurysm measures up to 5.4 cm transverse and 5.2 cm AP, compared to 5.2 x 5 cm on 10/14/2016. Atherosclerotic disease of iliac arteries without aneurysm. LYMPH NODES: No pathologic sized lymph nodes within the abdomen or pelvis. PELVIC VISCERA: Prostate gland has central calcification. No pelvic mass. OSSEOUS STRUCTURES: Multilevel facet arthropathy and multilevel severe degenerative disc disease of the lumbar spine. 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 IMPRESSION: 1. No acute imaging findings within the abdomen or pelvis. 2. Fusiform aneurysm of the infrarenal abdominal aorta has increased thrombus along its inner wall compared to 10/14/2016. The aneurysm has slightly increased in size and currently measures up to 5.4 cm transverse (compared to 5.2 cm on 10/14/2016). DICTATED BY: Thomas Espinoza MD DATE/TIME DICTATED:01/03/181933 HEMATOLOGIST:DUSTY DATE/TIME TRANSCRIBED:01/03/181933 Assessment/Plan Assessment/Plan 72yo M known AAA, COPD, and hld, here with acute exacerbation of CHF. As an incidental finding on CT during this admission AAA has grown in diameter from 5.2cm in Sep 2016 to 5.4cm now. AAA is stable at this time. Recommend Follow-up with Vascular surgeon as an outpatient on discharge once pt is medically stable to plan for elective EVAR. Pt can either follow-up with his Vascular surgeon or Dr. Becerril if he prefers. Consult Acknowledgment - Thank you for your consult request.
--- NOTE | 2018-01-04 11:53 | PN- Vascular Surgery ---
Surgical Brief Attending Note Brief Attending Note: Agree with PA consultation note. According to history, the patient has been noncompliant with follow-up with vascular surgery. Once the medical workup has been completed and the patient treated, please obtain cardiac clearance prior to discharge. His anatomy is suitable for endovascular repair. Thank you
--- NOTE | 2018-01-04 12:56 | Cons- Nephrology ---
General Information and HPI Consulting Request Date of Consult: 01/04/18 Requested By: Leonard Nieves MD Reason for Consult: VERA Source of Information: patient, old records Exam Limitations: no limitations History of Present Illness: The patient is a 72-year-old male with a past medical history most significant for baseline normal renal function with a baseline creatinine approximately 1.0, COPD with long-standing smoking use, AAA pending possible repair who presents with dyspnea and increased lower extremity edema. The patient has noticed worsening dyspnea as well as lower extremity edema over the last few weeks. He has had orthopnea from some time but it has been worse during this time. He has had some PND as well. That'll being sick, he does not think he has gained any weight. There is possibly some chest pain during this time. On presentation, blood pressure 115/76afebrile. Labs notable for creatinine 1.6 , albumin 3.8, negative hepatitis B and C and HIV, white blood cell count 16.3, hemoglobin 15.7, plts 76, and significant elevations of LFT's. Doppler ultrasound negative for DVT. Chest CT performed with contrast notable for no pulmonary embolism, moderate to severe emphysema, mild interstitial edema, and contrast reflux into the IVC. Abd US without cirrhotic liver. No hydro in R kidney. Of note, the patient denies any prior issues with his kidney. He reports very rare NSAID use. He denies any difficulty urinating. He denies any gross hematuria or worse significantly foamy urine. Allergies/Medications Allergies: Coded Allergies: No Known Allergies (04/27/16) Home Med List: Aspirin (Ecotrin*) 81 MG TABLET.DR 1 TAB PO DAILY HEART/BLOOD (Reported) Cyclobenzaprine HCl 10 MG TABLET 1 TAB PO PRN MUSCLE RELAXER (Reported) Rosuvastatin Calcium (Crestor) 10 MG TABLET 1 TAB PO DAILY HIGH CHOLESTROL ( Reported) Tramadol HCl 50 MG TABLET 1 TAB PO PRN PAIN (Reported) Current Medications: Current Medications Sig/Yousuf Start time Last Medication Dose Route Stop Time Status Admin Albuterol Sulfate 3 ML ONCE ONE 01/03 1745 DC 01/03 INH 01/03 174 1749 Aspirin 0 .STK-MED ONE 01/04 0122 DC PO Aspirin 243 MG ONCE ONE 01/04 100 DC 01/04 PO 01/04 101 012 Furosemide 40 MG 7:30 AM, & 4:30 PM 01/04 0730 DC 01/04 IV 0906 Furosemide 0 .STK-MED ONE 01/03 1802 DC IV Furosemide 40 MG ONCE ONE 01/03 1745 DC 01/03 IV 01/03 174 1807 Ipratropium [place] 2.5 ML ONCE ONE 01/03 1745 DC / INH 01/03 1746 1749 Methylprednisolone 0 .STK-MED ONE 01/03 1802 DC .ROUTE Methylprednisolone 125 MG ONCE ONE 01/03 1745 DC 01/03 IV 01/03 174 1807 Tramadol HCl 0 .STK-MED ONE 01/03 2254 DC PO Tramadol HCl 50 MG ONCE ONE 01/03 2245 DC / PO 01/03 224 2251 Review of Systems Review of Systems: Complete 14 point ROS neg except as per HPI Past History Travel History Traveled to [place] past 21 day No Medical History Blood Transfusion Hx: No Neurological: NONE EENT: NONE Cardiovascular: aortic aneurysm, hyperlipidemia Respiratory: COPD Gastrointestinal: AAA Hepatic: NONE Renal: NONE Musculoskeletal: NONE Psychiatric: NONE Endocrine: NONE Blood Disorders: NONE Cancer(s): NONE 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 Home Services at Home: NONE CARLA FELDMAN [phone] Smoking Status: Current Everyday Smoker ETOH Use: occasional use Exam & Diagnostic Data Vital Signs and I&O Vital Signs Date Time Temp Pulse Resp B/P B/P Pulse O2 O2 Flow FiO2 Mean Ox Delivery Rate 01/04 08 96.3 89 20 112/70 93 Nasal 2.0L Cannula 01/04 06 96 Nasal 2.0L Cannula 01/04 0346 94 Nasal 2.0L Cannula 01/04 0300 95 Nasal 2.0L Cannula 01/04 0300 97.0 85 20 110/90 95 Nasal 2.0L Cannula 01/04 0132 98 Room Air 01/04 0120 97.5 83 18 113/77 98 Room Air 01/04 0025 97.0 84 18 115/76 98 Room Air 01/03 2338 96.9 86 18 129/59 100 Room Air 01/03 2225 97.0 90 18 114/78 100 Room Air 01/03 2117 98 Room Air 01/03 2029 96.7 85 18 114/70 95 Room Air 01/03 1852 97.0 84 20 117/70 98 Room Air 01/03 1622 98 Room Air 01/03 1620 97.2 86 20 115/76 100 Nasal 4.0L Cannula Intake & Output 01/04 04001/03 0400 Intake Total Output Total 1350 Balance -1350 Number 0 Bowel Movements Output, Urine 1350 Patient 158 lb Weight Weight Bed scale Measurement Method Physical Exam: Gen - ok appearing Head - NCAT Eyes - anicteric sclera, EOMI Neck - supple, JVP up CV - RRR, no m/r/g Chest - clear anteriorly, no w/r/r Abd - soft, NTND Upper ext - warm, no edema Lower ext- warm, ++edema, knees with rashes b/l Skin - rash on knees, no jaundice Neuro - AOX3, grossly nonfocal Results Pertinent Lab Results: Laboratory Tests 01/04 01/04 01/04 1230 0800 0530 Chemistry Sodium (137 - 145 mmol/L) 136 L Potassium (3.5 - 5.1 mmol/L) 4.3 Chloride (98 - 107 mmol/L) 96 L Carbon Dioxide (22 - 30 mmol/L) 26 Anion Gap (5 - 16) 13 BUN (9 - 20 mg/dL) 57 H Creatinine (0.7 - 1.2 mg/dL) 1.8 H Estimated GFR (>60 ml/min) 37 L Glucose (65 - 99 mg/dL) 112 H Lactic Acid (0.7 - 2.1 mmol/L) Pending 2.2 H Calcium (8.4 - 10.2 mg/dL) 9.1 Phosphorus (2.5 - 4.5 mg/dL) 5.0 H Magnesium (1.6 - 2.3 mg/dL) 2.4 H Total Bilirubin (0.2 - 1.3 mg/dL) 2.2 H AST (17 - 59 U/L) 637 H ALT (21 - 72 U/L) 1966 H Alkaline Phosphatase (< 127 U/L) 240 H Troponin I (<0.11 ng/ml) Pending 0.14 *H Albumin (3.5 - 5.0 g/dL) 3.5 Total PSA (0.00 - 4.00 ng/mL) 1.59 Coagulation PT (9.4 - 12.5 SEC) 28.6 H INR (0.90 - 1.17) 2.60 H APTT (25 - 37 SEC) 32 Fibrinogen Activity (200 - 393 MG/DL) 89 L D-Dimer High Sensitivty (0 - 243 ng/ml) 1882 H Hematology CBC w Diff MAN DIFF ORDERED WBC (4.8 - 10.8 /CUMM) 11.6 H RBC (4.70 - 6.10 /CUMM) 5.12 Hgb (14.0 - 18.0 G/DL) 15.1 Hct (42 - 52 %) 46.2 MCV (80.0 - 94.0 FL) 90.2 MCH (27.0 - 31.0 PG) 29.4 MCHC (33.0 - 37.0 G/DL) 32.6 L RDW (11.5 - 14.5 %) 16.6 H Plt Count (130 - 400 /CUMM) 58 L MPV (7.4 - 10.4 FL) 9.3 Gran % (42.2 - 75.2 %) 93.0 H Lymphocytes % (20.5 - 51.1 %) 4.4 L Monocytes % (1.7 - 9.3 %) 2.5 Eosinophils % (0 - 5 %) 0 Basophils % (0.0 - 2.0 %) 0.1 Absolute Granulocytes (1.4 - 6.5 /CUMM) 10.8 H Segmented Neutrophils (42.2 - 75.2 %) 94 H Absolute Lymphocytes (1.2 - 3.4 /CUMM) 0.5 L Lymphocytes (20.5 - 51.1 %) 1 L Monocytes (1.7 - 9.3 %) 5 Absolute Monocytes (0.10 - 0.60 /CUMM) 0.3 Absolute Eosinophils (0.0 - 0.7 /CUMM) 0 Absolute Basophils (0.0 - 0.2 /CUMM) 0 Nucleated RBCs (0.0 - 0.0 /100WBC) 2 H Platelet Estimate (ADEQUATE) VERIFIED BY SMEAR Polychromasia 1+ Anisocytosis 1+ Macrocytic Cells FEW Target Cells RARE [place] Cells FEW Elliptocytes FEW Serology Hepatitis A IgM Ab (NONREACTIVE) NONREACTIVE Hep Bs Antigen (NONREACTIVE) NONREACTIVE Hep B Core IgM Ab Conf (NONREACTIVE) NONREACTIVE Hepatitis C Antibody (NONREACTIVE) NONREACTIVE HIV 1&2 Ab Western Blot (NONREACTIVE) NONREACTIVE 01/04 01/04 01/03 0340 0200 2340 Chemistry Sodium (137 - 145 mmol/L) 135 L Potassium (3.5 - 5.1 mmol/L) 4.4 Chloride (98 - 107 mmol/L) 95 L Carbon Dioxide (22 - 30 mmol/L) 24 Anion Gap (5 - 16) 16 BUN (9 - 20 mg/dL) 58 H Creatinine (0.7 - 1.2 mg/dL) 1.6 H Estimated GFR (>60 ml/min) 43 L Glucose (65 - 99 mg/dL) 123 H Lactic Acid (0.7 - 2.1 mmol/L) 3.1 H Cancelled Calcium (8.4 - 10.2 mg/dL) 9.0 Phosphorus (2.5 - 4.5 mg/dL) 4.9 H Magnesium (1.6 - 2.3 mg/dL) 2.3 Total Bilirubin (0.2 - 1.3 mg/dL) 2.7 H AST (17 - 59 U/L) 715 H ALT (21 - 72 U/L) 2053 H Troponin I (<0.11 ng/ml) 0.11 *H Albumin (3.5 - 5.0 g/dL) 3.6 Hematology CBC w Diff NO MAN DIFF REQ WBC (4.8 - 10.8 /CUMM) 14.0 H RBC (4.70 - 6.10 /CUMM) 5.15 Hgb (14.0 - 18.0 G/DL) 15.2 Hct (42 - 52 %) 46.5 MCV (80.0 - 94.0 FL) 90.4 MCH (27.0 - 31.0 PG) 29.5 MCHC (33.0 - 37.0 G/DL) 32.6 L RDW (11.5 - 14.5 %) 17.2 H Plt Count (130 - 400 /CUMM) 76 L MPV (7.4 - 10.4 FL) 9.6 Gran % (42.2 - 75.2 %) 91.8 H Lymphocytes % (20.5 - 51.1 %) 5.0 L Monocytes % (1.7 - 9.3 %) 2.9 Eosinophils % (0 - 5 %) 0 Basophils % (0.0 - 2.0 %) 0.3 Absolute Granulocytes (1.4 - 6.5 /CUMM) 12.9 H Absolute Lymphocytes (1.2 - 3.4 /CUMM) 0.7 L Absolute Monocytes (0.10 - 0.60 /CUMM) 0.4 Absolute Eosinophils (0.0 - 0.7 /CUMM) 0 Absolute Basophils (0.0 - 0.2 /CUMM) 0 01/03 01/03 2240 1730 Chemistry Sodium (137 - 145 mmol/L) 133 L Potassium (3.5 - 5.1 mmol/L) 5.1 Chloride (98 - 107 mmol/L) 96 L Carbon Dioxide (22 - 30 mmol/L) 24 Anion Gap (5 - 16) 13 BUN (9 - 20 mg/dL) 59 H Creatinine (0.7 - 1.2 mg/dL) 1.6 H Estimated GFR (>60 ml/min) 43 L BUN/Creatinine Ratio (7 - 25 %) 36.9 H Glucose (65 - 99 mg/dL) 109 H Lactic Acid (0.7 - 2.1 mmol/L) 3.5 H 4.0 H Calcium (8.4 - 10.2 mg/dL) 9.2 Total Bilirubin (0.2 - 1.3 mg/dL) 2.5 H AST (17 - 59 U/L) 717 H ALT (21 - 72 U/L) 2269 H Alkaline Phosphatase (< 127 U/L) 252 H Troponin I (<0.11 ng/ml) 0.13 *H [id number]-Jyzhqclqepq Pept (<125 pg/mL) 08069 H Total Protein (6.3 - 8.2 g/dL) 6.9 Albumin (3.5 - 5.0 g/dL) 3.8 Globulin (1.9 - 4.2 gm/dL) 3.1 Albumin/Globulin Ratio (1.1 - 2.2 %) 1.2 Amylase (30 - 110 U/L) 35 Lipase (23 - 300 U/L) 139 Coagulation PT (9.4 - 12.5 SEC) 32.1 H INR (0.90 - 1.17) 2.91 H APTT (25 - 37 SEC) 31 D-Dimer High Sensitivty (0 - 243 ng/ml) 1850 H Hematology CBC w Diff NO MAN DIFF REQ WBC (4.8 - 10.8 /CUMM) 16.4 H RBC (4.70 - 6.10 /CUMM) 5.28 Hgb (14.0 - 18.0 G/DL) 15.7 Hct (42 - 52 %) 47.6 MCV (80.0 - 94.0 FL) 90.3 MCH (27.0 - 31.0 PG) 29.7 MCHC (33.0 - 37.0 G/DL) 32.9 L RDW (11.5 - 14.5 %) 16.9 H Plt Count (130 - 400 /CUMM) 76 L MPV (7.4 - 10.4 FL) 9.5 Gran % (42.2 - 75.2 %) 87.5 H Lymphocytes % (20.5 - 51.1 %) 5.7 L Monocytes % (1.7 - 9.3 %) 6.7 Eosinophils % (0 - 5 %) 0 Basophils % (0.0 - 2.0 %) 0.1 Absolute Granulocytes (1.4 - 6.5 /CUMM) 14.3 H Absolute Lymphocytes (1.2 - 3.4 /CUMM) 0.9 L Absolute Monocytes (0.10 - 0.60 /CUMM) 1.1 H Absolute Eosinophils (0.0 - 0.7 /CUMM) 0 Absolute Basophils (0.0 - 0.2 /CUMM) 0 Imaging/Other Studies: CT imaging and lower ext US reviewed Assessment/Plan Assessment/Recommendations Assessment: VERA - Likely 2/2 cardiorenal syndrome in the setting of R sided CHF symptoms, significant transaminitis. No clear nephrotoxic meds at home. No hydro on limited Abd US which visualized R kidney. Should note that he had a rash on his knees although no peripheral eosinophilia on his diff to suggest AIN (nor is there really a potential offending agent). He is thrombocytopenic but this seems more consistent with liver disease. CHF - Primarily R sided symptoms with suggestion of pulm HTN 2/2 COPD. Cards following. TTE pending. Diruesis seems reasonable although given the contrast he received, I am sure that his SCr will go up. Recommendations: -Urinalysis with microscopic analysis -Urine sodium, creatinine -Complete Renal US -f/u TTE -OK to try and diurese - 40mg IV lasix already given today Please call [phone] with ?'s
--- NOTE | 2018-01-04 13:25 | ECHOCARDIOGRAM REPORT ---
KWABENA FELDMAN Age: 72 : 1945 Gender: M Exam Date: 01/04/2018 09:26 Exam Location: [facility] Ht (in): 72 Wt (lb): 158 BSA: 1.90 BP: 110 / 90 Ordering Physician: Maricruz Lam, Referring Physician: Maricruz Lam, Technologist: Bg Manriquez RDCS Room Number: 109-1 Indications: Heart failure, unspecified Rhythm: Sinus Technical Quality: Fair FINDINGS Left Ventricle Normal size left ventricle. Moderately reduced global left ventricular systolic function. Hypokinetic septum. Abnormal septal motion. Hypokinetic lateral wall. [place] hypokinetic. Moderately abnormal left ventricular ejection fraction estimated at 25-30%. Right Ventricle Right ventricle not well visualized, grossly normal. Right Atrium Normal right atrial size. Left Atrium Mild to moderate left atrial dilatation. Mitral Valve Mitral valve thickened. Cumx-ja-gyvphazi mitral regurgitation. Aortic Valve Trileaflet aortic valve. Diffuse thickening of the aortic valve cusps with reduced excursion. Severe aortic stenosis. Mild aortic regurgitation. Tricuspid Valve Tricuspid valve not well visualized, grossly normal. Mild tricuspid regurgitation. Right ventricular systolic pressure estimated at 46 mmHg. Pulmonic Valve Pulmonic valve not well visualized, grossly normal. Mild pulmonic regurgitation. Pericardium No pericardial effusion. Great Vessels Aortic root and proximal ascending aorta not well visualized, grossly normal. CONCLUSIONS 1. 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 Peak gradient is 42 mmHg with a mean gradient 20 mmHg and an estimated valve area of 0.6 cm. Mild aortic insufficiency is also present. 2. Mitral leaflet thickening is present with moderate annular calcification and mild to moderate mitral insufficiency with mild to moderate left atrial enlargement. 3. No significant pericardial fluid is detected on the study. 4. The left ventricular chamber size is normal. There is global hypokinesia present which is much more prominent in the mid to distal septum, anterolateral and apical segments. Ejection fraction is approximately 25-30%. There is an ill-defined echodensity present in the distal inferoapical region which may represent a small laminar thrombus. Additional images were obtained following the administration of IV contrast. Diastolic dysfunction is also noted. 5. Mild tricuspid and pulmonic insufficiency are present. Mild pulmonary hypertension is present with a right ventricular systolic pressure 46 mmHg. 6. No prior study was available for comparison. Nupur Hernandez M.D. (Electronically Signed) Final Date: 04 January 2018 13:25 MEASUREMENTS (Male / Female) Normal Values 2D ECHO LV Diastolic Diameter PLAX 4.9 cm 4.2 - 5.9 / 3.9 - 5.3 cm LV Systolic Diameter PLAX 4.0 cm 2.1 - 4.0 cm LV Fractional Shortening PLAX 18.4 % 25 - 46 % LV Ejection Fraction 2D Teich 38.0 % IVS Diastolic Thickness 1.1 cm LVPW Diastolic Thickness 1.1 cm LV Relative Wall Thickness 0.4 LVOT Diameter 1.9 cm Aortic Root Diameter 3.5 cm LA Systolic Diameter LX 3.4 cm 3.0 - 4.0 / 2.7 - 3.8 cm LA Volume 65.0 cm 18 - 58 / 22 - 52 cm DOPPLER AV Peak Velocity 325.0 cm/s AV Peak Gradient 42.3 mmHg AV Mean Velocity 190.0 cm/s AV Mean Gradient 19.0 mmHg AV Velocity Time Integral 57.3 cm AI Deceleration [place] 212.0 cm/s AI Peak Velocity 329.0 cm/s AI Pressure Half Time 454.0 ms AI Peak Gradient 43.3 mmHg LVOT Peak Velocity 59.4 cm/s LVOT Peak Gradient 1.4 mmHg LVOT Mean Velocity 35.3 cm/s LVOT Mean Gradient 1.0 mmHg LVOT Velocity Time Integral 12.0 cm LVOT Stroke Volume 34.0 cm AV Area Cont Eq vti 0.6 cm AV Area Cont Eq pk 0.5 cm MV Peak Velocity 109.0 cm/s MV Peak Gradient 4.8 mmHg MV Mean Velocity 70.7 cm/s MV Mean Gradient 2.0 mmHg Mitral E Point Velocity 94.8 cm/s Mitral A Point Velocity 60.2 cm/s Mitral E to A Ratio 1.6 MV PHT Velocity 110.0 cm/s MV Deceleration [place] 405.0 cm/s MV Pressure Half Time 81.5 ms MV Area PHT 2.7 cm MV Deceleration Time 162.0 ms TR Peak Velocity 318.0 cm/s TR Peak Gradient 40.4 mmHg Right Atrial Pressure 10.0 mmHg Pulmonary Artery Systolic Pressu 50.4 mmHg Right Ventricular Systolic Press 50.4 mmHg PV Peak Velocity 62.0 cm/s PV Peak Gradient 1.5 mmHg PV Mean Velocity 36.9 cm/s PV Mean Gradient 1.0 mmHg PV Velocity Time Integral 6.9 cm LV E' Lateral Velocity 4.3 cm/s Mitral E to LV E' Lateral Ratio 22.1 LV E' Septal Velocity 3.4 cm/s Mitral E to LV E' Septal Ratio 27.8
--- NOTE | 2018-01-04 13:50 | Admission Certification ---
Admission Certification Certification Statement - As attending physician, I certify that at the time of - admission, based on clinical presentation, severity of - symptoms, need for further diagnostic testing and - therapeutic interventions, and risk of adverse outcomes - without in-hospital treatment, in my clinical assessment, - this patient requires an acute hospital stay for a minimum - of two nights or longer. I have also considered psychsocial - factors such as support system, advanced age, financial - issues, cognitive issues, and failed out-patient treatments, - past re-admission history, safety of patient, and lack of - compliance as applicable. Specific rationale supporting this admission is: Worsening shortness of breath and edema minimally elevated troponin acute renal insufficiency. Abnormal liver function tests, thrombocytopenia
--- NOTE | 2018-01-04 13:53 | PN- Att Addend ---
Attending Addendum Attending Brief Note 72-year-old white male who still smokes in COPD/emphysema and had a recent exacerbation treated with antibiotics and steroids, not feeling any better point still short of breath is so weak that he came to the emergency room this time he has some edema. Blood work showed some minimally elevated troponin increased BUN and creatinine, liver function tests and thrombocytopenia CAT scans showed no pulmonary emboli but [id number] emphysema in the abdomen there is diffuse fusiform aneurysm in the infrarenal aortic artery has increased in size since last visit patient was admitted to the intensive care unit for close observation neurology consultation was obtained also hematology consult was obtained due to the low platelets and a question of congestive coagulopathy. He will have an echocardiogram and nephrology consult will have an echocardiogram and treat accordingly Current Medications Sig/Yousuf Start time Last Medication Dose Route Stop Time Status Admin Albuterol Sulfate 3 ML Q4P PRN 01/04 1400 UNVr INH Albuterol Sulfate 3 ML ONCE ONE 01/03 174 DC 01/03 INH 01/03 174 1749 Aspirin 0 .STK-MED ONE 01/04 0122 DC PO Aspirin 243 MG ONCE ONE 01/04 0100 DC 01/04 PO 01/04 0101 0120 Furosemide 40 MG 7:30 AM, & 4:30 PM 01/04 0730 DC 01/04 IV 0906 Furosemide 0 .STK-MED ONE 01/03 1802 DC IV Furosemide 40 MG ONCE ONE 01/03 1745 DC 01/03 IV 01/03 174 1807 Ipratropium [place] 2.5 ML Q4P PRN 01/04 1400 UNVr INH Ipratropium [place] 2.5 ML ONCE ONE 01/03 1745 DC 01/03 INH 01/03 174 1749 Methylprednisolone 0 .STK-MED ONE 01/03 1802 DC .ROUTE Methylprednisolone 125 MG ONCE ONE 01/03 1745 DC 01/03 IV 01/03 174 1807 Tramadol HCl 0 .STK-MED ONE 01/03 2254 DC PO Tramadol HCl 50 MG ONCE ONE 01/03 2245 DC 01/03 PO 01/03 2246 2251 Laboratory Tests 01/04/18 1230: Lactic Acid Pending, Troponin I Pending 01/04/18 0800: Lactic Acid 2.2 H 01/04/18 0530: Anion Gap 13, Estimated GFR 37 L, Glucose 112 H, Calcium 9.1, Phosphorus 5.0 H, Magnesium 2.4 H, Total Bilirubin 2.2 H, AST 637 H, ALT 1966 H, Alkaline Phosphatase 240 H, Troponin I 0.14 *H, Albumin 3.5, Total PSA 1.59, PT 28.6 H, INR 2.60 H, APTT 32, Fibrinogen Activity 89 L, D-Dimer High Sensitivty 1882 H , CBC w Diff MAN DIFF ORDERED, RBC 5.12, MCV 90.2, MCH 29.4, MCHC 32.6 L, RDW 16.6 H, MPV 9.3, Gran % 93.0 H, Lymphocytes % 4.4 L, Monocytes % 2.5, Eosinophils % 0, Basophils % 0.1, Absolute Granulocytes 10.8 H, Segmented Neutrophils 94 H, Absolute Lymphocytes 0.5 L, Lymphocytes 1 L, Monocytes 5, Absolute Monocytes 0.3, Absolute Eosinophils 0, Absolute Basophils 0, Nucleated RBCs 2 H, Platelet Estimate VERIFIED BY SMEAR, Polychromasia 1+, Anisocytosis 1 +, Macrocytic Cells FEW, Target Cells RARE, [place] Cells FEW, Elliptocytes FEW, Hepatitis A IgM Ab NONREACTIVE, Hep Bs Antigen NONREACTIVE, Hep B Core IgM Ab Conf NONREACTIVE, Hepatitis C Antibody NONREACTIVE, HIV 1&2 Ab Western Blot NONREACTIVE 01/04/18 0340: Lactic Acid 3.1 H 01/04/18 0200: Lactic Acid Cancelled 01/03/18 2340: Anion Gap 16, Estimated GFR 43 L, Glucose 123 H, Calcium 9.0, Phosphorus 4.9 H, Magnesium 2.3, Total Bilirubin 2.7 H, AST 715 H, ALT 2053 H, Troponin I 0.11 *H, Albumin 3.6, CBC w Diff NO MAN DIFF REQ, RBC 5.15, MCV 90.4, MCH 29.5, MCHC 32.6 L, RDW 17.2 H, MPV 9.6, Gran % 91.8 H, Lymphocytes % 5.0 L, Monocytes % 2.9, Eosinophils % 0, Basophils % 0.3, Absolute Granulocytes 12.9 H , Absolute Lymphocytes 0.7 L, Absolute Monocytes 0.4, Absolute Eosinophils 0, Absolute Basophils 0 01/03/18 2240: Lactic Acid 3.5 H 01/03/18 1730: Anion Gap 13, Estimated GFR 43 L, BUN/Creatinine Ratio 36.9 H, Glucose 109 H, Lactic Acid 4.0 H, Calcium 9.2, Total Bilirubin 2.5 H, AST 717 H, ALT 2269 H , Alkaline Phosphatase 252 H, Troponin I 0.13 *H, Jcf-L-Mytruciyltv Pept 08050 H, Total Protein 6.9, Albumin 3.8, Globulin 3.1, Albumin/Globulin Ratio 1.2, Amylase 35, Lipase 139, PT 32.1 H, INR 2.91 H, APTT 31, D-Dimer High Sensitivty 1850 H, CBC w Diff NO MAN DIFF REQ, RBC 5.28, MCV 90.3, MCH 29.7, MCHC 32.9 L, RDW 16.9 H, MPV 9.5, Gran % 87.5 H, Lymphocytes % 5.7 L, Monocytes % 6.7, Eosinophils % 0, Basophils % 0.1, Absolute Granulocytes 14.3 H , Absolute Lymphocytes 0.9 L, Absolute Monocytes 1.1 H, Absolute Eosinophils 0 , Absolute Basophils 0 Microbiology Date/Time Procedure - Status Source Growth 01/04 1315 Respiratory Culture - RECD LOWER RESP 01/04 1315 Gram Stain - RECD LOWER RESP 01/04 1230 Urine Culture - RECD URINE ROUT 01/04 0240 Surveillance Culture - RECD UPPER RESP 01/04 0240 Surveillance Culture - RECD GI 01/03 2250 Blood Culture - RES BLOOD 01/03 2240 Blood Culture - RES BLOOD Vital Signs Date Time Temp Pulse Resp B/P B/P Pulse O2 O2 Flow FiO2 Mean Ox Delivery Rate 01/04 1340 Nasal 2.0L Cannula 01/04 1200 97 Nasal 2.0L Cannula 01/04 0800 93 Nasal 2.0L Cannula 01/04 0800 96.3 89 20 112/70 93 Nasal 2.0L Cannula 01/04 0600 96 Nasal 2.0L Cannula 01/04 0346 94 Nasal 2.0L Cannula 01/04 0300 95 Nasal 2.0L Cannula 01/04 0300 97.0 85 20 110/90 95 Nasal 2.0L Cannula 01/04 0132 98 Room Air 01/04 0120 97.5 83 18 113/77 98 Room Air 01/04 0025 97.0 84 18 115/76 98 Room Air 01/03 2338 96.9 86 18 129/59 100 Room Air 03/06 2225 97.0 90 18 114/78 100 Room Air 03/06 2117 98 Room Air 03/06 2029 96.7 85 18 114/70 95 Room Air 03/06 1852 97.0 84 20 117/70 98 Room Air 03/06 1622 98 Room Air 03/ 1620 97.2 86 20 115/76 100 Nasal 4.0L Cannula
--- NOTE | 2018-01-04 15:26 | ULTRASOUND REPORT ---
EXAMINATION: US RETROPERITONEAL COMPLETE (RENAL) CLINICAL INFORMATION: Acute kidney insufficiency. Worsening creatinine. COMPARISON: CT scan of the abdomen and pelvis 01/03/2018. TECHNIQUE: Real-time imaging of the kidneys and bladder. FINDINGS: RIGHT KIDNEY: 11.1 x 4.5 x 4.5 cm (SAG x AP x TRV). The kidney is normal in size, contour, and echogenicity. Renal cortical thickness is normal. No calculi or focal parenchymal lesions. No hydronephrosis. LEFT KIDNEY: 10.1 x 4.8 x 4.0 cm (SAG x AP x TRV). The lower pole is not well visualized on the current study. The kidney is normal in size, contour, and echogenicity. Renal cortical thickness is normal. No calculi or focal parenchymal lesions. No hydronephrosis. BLADDER: Well-distended and normal. Bilateral ureteral jets are demonstrated. OTHER: An aneurysm of the abdominal aorta is redemonstrated at the mid/distal aorta, more fully evaluated on the CT scan of the abdomen and pelvis. IMPRESSION: 1. The kidneys appear normal bilaterally. There is no hydronephrosis. There are no echogenic renal calculi. 2. The study redemonstrates the infrarenal abdominal aortic aneurysm.
[2018-01-04 16:00] VITALS: BP 130/86
[2018-01-04 16:49] LABS: ABSOLUTE BASOPHIL COUNT 0 /CUMM (0.0-0.2); ABSOLUTE EOSINOPHIL COUNT 0 /CUMM (0.0-0.7); ABSOLUTE GRANULOCYTE CT 15.7 /CUMM (1.4-6.5); ABSOLUTE LYMPH COUNT 0.3 /CUMM (1.2-3.4); ABSOLUTE MONOCYTE COUNT 0.7 /CUMM (0.10-0.60); BASOPHIL % 0 % (0.0-2.0); EOSINOPHIL % 0 % (0-5); HEMATOCRIT 44.4 % (42-52); MEAN CORPUSCULAR HGB 29.5 PG (27.0-31.0); MEAN CORPUSCULAR HGB CONC 32.5 G/DL (33.0-37.0); MEAN CORPUSCULAR VOLUME 90.6 FL (80.0-94.0); MEAN PLATELET VOLUME 9.8 FL (7.4-10.4); RBC DISTRIBUTION WIDTH 17.2 % (11.5-14.5); WHITE BLOOD CELL COUNT 16.8 /CUMM (4.8-10.8)
[2018-01-04 17:12] LABS: PT 26.3 SEC (9.4-12.5); PTT 30 SEC (25-37)
[2018-01-04 17:15] LABS: GRANULOCYTE % 93.6 % (42.2-75.2)
[2018-01-04 17:16] LABS: PLATELET COUNT 61 /CUMM (130-400)
[2018-01-05] VITALS: BP 102/70
[2018-01-05 04:43] LABS: ABSOLUTE BASOPHIL COUNT 0 /CUMM (0.0-0.2); ABSOLUTE EOSINOPHIL COUNT 0 /CUMM (0.0-0.7); ABSOLUTE GRANULOCYTE CT 18.2 /CUMM (1.4-6.5); ABSOLUTE LYMPH COUNT 0.4 /CUMM (1.2-3.4); ABSOLUTE MONOCYTE COUNT 0.7 /CUMM (0.10-0.60); BASOPHIL % 0.1 % (0.0-2.0); EOSINOPHIL % 0 % (0-5); GRANULOCYTE % 94.1 % (42.2-75.2); MEAN CORPUSCULAR HGB 29.4 PG (27.0-31.0); MEAN CORPUSCULAR HGB CONC 32.6 G/DL (33.0-37.0); MEAN CORPUSCULAR VOLUME 90.1 FL (80.0-94.0); MEAN PLATELET VOLUME 9.3 FL (7.4-10.4); PLATELET COUNT 55 /CUMM (130-400); RBC DISTRIBUTION WIDTH 17.1 % (11.5-14.5); RED BLOOD CELL CT 4.77 /CUMM (4.70-6.10); WHITE BLOOD CELL COUNT 19.3 /CUMM (4.8-10.8)
[2018-01-05 04:52] LABS: PT 24.4 SEC (9.4-12.5); PTT 27 SEC (25-37)
[2018-01-05 08:00] VITALS: BP 104/64
--- NOTE | 2018-01-05 08:25 | PN- Hematology ---
Subjective Subjective: Patient offers no new complaints, 12 point review of systems negative Objective Vital Signs and I&Os Vital Signs Date Time Temp Pulse Resp B/P B/P Pulse O2 O2 Flow FiO2 Mean Ox Delivery Rate 01/05 0400 93 Nasal 2.0L Cannula 01/05 0000 97 Nasal 2.0L Cannula 01/05 0000 96.7 85 18 102/70 97 Nasal 2.0L Cannula 01/05 2000 98 Nasal 2.0L Cannula 01/04 1930 95 Nasal 2.0L Cannula 01/04 1600 98 Nasal 2.0L Cannula 01/04 1600 96.8 96 18 130/86 97 Nasal 2.0L Cannula 01/04 1340 Nasal 2.0L Cannula 01/04 1200 97 Nasal 2.0L Cannula Intake & Output 01/05 0000 01/04 0801/04 0000 Intake Total 220 240 965 Output Total 385 638 1851 350 1000 Balance -380 -285 -510 -350 -1000 Intake, IV 125 Intake, Oral 220 240 840 Number 0 Bowel Movements Output, Dialysate Output, Urine 961 198 7963 350 1000 Patient 159 lb 158 lb 166 lb Weight Weight Bed scale Bed scale Reported by Patient Measurement Method Gen.: in NAD ENT: Sclera anicteric Chest: Normal respiratory effort, clear breath sounds Cor: RRR, no extra sounds Abdomen: Soft, bowel sounds present, no tenderness, Extremities: Without clubbing, cyanosis, or asymmetric edema Neurology: Alert and oriented 3, no gross deficit Current Medications: Current Medications Sig/Yousuf Start time Last Medication Dose Route Stop Time Status Admin Albuterol Sulfate 3 ML Q4P PRN 01/04 1400 AC INH Furosemide 40 MG 7:30 AM, & 4:30 PM 01/04 07 DC 01/04 IV 0906 Ipratropium [place] 2.5 ML Q4P PRN 01/04 1400 AC INH Omeprazole 40 MG DAILY AC 01/04 1439 AC 01/05 PO 0608 Results Last 24 Hours of Lab Results: Laboratory Tests 01/05 01/05 01/05 08 0415 0415 Chemistry Sodium (137 - 145 mmol/L) 136 L Potassium (3.5 - 5.1 mmol/L) 4.0 Chloride (98 - 107 mmol/L) 96 L Carbon Dioxide (22 - 30 mmol/L) 28 Anion Gap (5 - 16) 11 BUN (9 - 20 mg/dL) 56 H Creatinine (0.7 - 1.2 mg/dL) 1.5 H Estimated GFR (>60 ml/min) 46 L Glucose (65 - 99 mg/dL) 116 H Lactic Acid (0.7 - 2.1 mmol/L) Cancelled 2.2 H Calcium (8.4 - 10.2 mg/dL) 8.6 Phosphorus (2.5 - 4.5 mg/dL) 3.8 Magnesium (1.6 - 2.3 mg/dL) 2.5 H Total Bilirubin (0.2 - 1.3 mg/dL) 2.1 H AST (17 - 59 U/L) 410 H ALT (21 - 72 U/L) 1478 H Albumin (3.5 - 5.0 g/dL) 3.3 L Coagulation PT (9.4 - 12.5 SEC) 24.4 H INR (0.90 - 1.17) 2.22 H APTT (25 - 37 SEC) 27 Fibrinogen Activity (200 - 393 MG/DL) 101 L D-Dimer High Sensitivty (0 - 243 ng/ml) 2595 H Hematology CBC w Diff MAN DIFF ORDERED WBC (4.8 - 10.8 /CUMM) 19.3 H RBC (4.70 - 6.10 /CUMM) 4.77 Hgb (14.0 - 18.0 G/DL) 14.0 Hct (42 - 52 %) 43.0 MCV (80.0 - 94.0 FL) 90.1 MCH (27.0 - 31.0 PG) 29.4 MCHC (33.0 - 37.0 G/DL) 32.6 L RDW (11.5 - 14.5 %) 17.1 H Plt Count (130 - 400 /CUMM) 55 L MPV (7.4 - 10.4 FL) 9.3 Gran % (42.2 - 75.2 %) 94.1 H Lymphocytes % (20.5 - 51.1 %) 2.2 L Monocytes % (1.7 - 9.3 %) 3.6 Eosinophils % (0 - 5 %) 0 Basophils % (0.0 - 2.0 %) 0.1 Absolute Granulocytes (1.4 - 6.5 /CUMM) 18.2 H Segmented Neutrophils (42.2 - 75.2 %) 90 H Absolute Lymphocytes (1.2 - 3.4 /CUMM) 0.4 L Lymphocytes (20.5 - 51.1 %) 5 L Monocytes (1.7 - 9.3 %) 5 Absolute Monocytes (0.10 - 0.60 /CUMM) 0.7 H Absolute Eosinophils (0.0 - 0.7 /CUMM) 0 Absolute Basophils (0.0 - 0.2 /CUMM) 0 Nucleated RBCs (0.0 - 0.0 /100WBC) 1 H Platelet Estimate (ADEQUATE) DECREASED Polychromasia 1+ Poikilocytosis 1+ Ovalocytes 1+ Other Body Source Fld Total RBCs Counted (%) 100 01/05 01/04 01/04 0015 2100 1700 Chemistry Lactic Acid (0.7 - 2.1 mmol/L) 3.2 H 4.0 H Hematology CBC w Diff Cancelled WBC Cancelled RBC Cancelled Hgb Cancelled Hct Cancelled MCV Cancelled MCH Cancelled MCHC Cancelled RDW Cancelled Plt Count Cancelled MPV Cancelled 01/04 01/04 1610 1500 Chemistry Sodium (137 - 145 mmol/L) 137 Potassium (3.5 - 5.1 mmol/L) 4.3 Chloride (98 - 107 mmol/L) 95 L Carbon Dioxide (22 - 30 mmol/L) 27 Anion Gap (5 - 16) 15 BUN (9 - 20 mg/dL) 58 H Creatinine (0.7 - 1.2 mg/dL) 1.9 H Estimated GFR (>60 ml/min) 35 L Glucose (65 - 99 mg/dL) 113 H Lactic Acid (0.7 - 2.1 mmol/L) 3.7 H Calcium (8.4 - 10.2 mg/dL) 8.6 Phosphorus (2.5 - 4.5 mg/dL) 4.2 Magnesium (1.6 - 2.3 mg/dL) 2.4 H Total Bilirubin (0.2 - 1.3 mg/dL) 2.5 H AST (17 - 59 U/L) 539 H ALT (21 - 72 U/L) 1691 H Albumin (3.5 - 5.0 g/dL) 3.5 Coagulation PT (9.4 - 12.5 SEC) 26.3 H INR (0.90 - 1.17) 2.39 H APTT (25 - 37 SEC) 30 Fibrinogen Activity (200 - 393 MG/DL) 114 L Hematology CBC w Diff NO MAN DIFF REQ WBC (4.8 - 10.8 /CUMM) 16.8 H RBC (4.70 - 6.10 /CUMM) 4.90 Hgb (14.0 - 18.0 G/DL) 14.4 Hct (42 - 52 %) 44.4 MCV (80.0 - 94.0 FL) 90.6 MCH (27.0 - 31.0 PG) 29.5 MCHC (33.0 - 37.0 G/DL) 32.5 L RDW (11.5 - 14.5 %) 17.2 H Plt Count (130 - 400 /CUMM) 61 L MPV (7.4 - 10.4 FL) 9.8 Gran % (42.2 - 75.2 %) 93.6 H Lymphocytes % (20.5 - 51.1 %) 1.9 L Monocytes % (1.7 - 9.3 %) 4.5 Eosinophils % (0 - 5 %) 0 Basophils % (0.0 - 2.0 %) 0 Absolute Granulocytes (1.4 - 6.5 /CUMM) 15.7 H Absolute Lymphocytes (1.2 - 3.4 /CUMM) 0.3 L Absolute Monocytes (0.10 - 0.60 /CUMM) 0.7 H Absolute Eosinophils (0.0 - 0.7 /CUMM) 0 Absolute Basophils (0.0 - 0.2 /CUMM) 0 Urines Urinalysis LIGHT H Urine Color (YEL,AMB,STR) YEL Urine Clarity (CLEAR) CLEAR Urine pH (5.0 - 8.0) 5.5 Ur Specific [place] (1.001 - 1.035) 1.010 Urine Protein (NEG,<30 MG/DL) TRACE H Urine Ketones (NEG) NEG Urine Nitrite (NEG) NEG Urine Bilirubin (NEG) NEG Urine Urobilinogen (0.1 - 1.0 EU/dl) 0.2 Ur Leukocyte Esterase (NEG) NEG Ur Microscopic SEDIMENT EXAMINED Urine RBC (0 - 5 /HPF) RARE Urine WBC (0 - 2 /HPF) RARE Ur Epithelial Cells (NONE,FEW) MOD H Hyaline Casts (0/LPF) 1-3 H Granular Casts (NONE /LPF) 3-5 H Urine Mucus (FEW,NONE) FEW Urine Hemoglobin (NEG) SMALL H Urine Glucose (N MG/DL) NEG 01/04 01/04 1500 1230 Chemistry Lactic Acid (0.7 - 2.1 mmol/L) 3.2 H Troponin I (<0.11 ng/ml) 0.12 *H Urines Ur Random Creatinine (mg/dL) 23.9 Ur Random Sodium (30 - 90 mmol/L) 57 Ur Random Potassium (mmol/L) 35.4 Fraction Sodium Excret (<1% %) 3.2 H Cultures-negative Assessment/Plan Hematology Assessment/Recommendations: Hematologic status-platelet count unchanged, regulation studies-fibrinogen>100, PTT-elevated Overall stable Recommend- Continue current transfusion parameters Trial of vitamin K Continue to follow CBC, PT, PTT and fibrinogen
--- NOTE | 2018-01-05 08:44 | PN- Resident CRCU ---
See Addendum Subjective HPI/CRCU Issues: Patient seen and examined. Resting comfortably. Complains of back pain on tramadol at home. Overnight events -No acute overnight events. Patient remained hemodynamically stable and slept most of the night. Vitals Tmax 97, heart rate ranging in the 90s to 70s, normal sinus rhythm and right bundle branch block, respiratory rate ranging 15-20, blood pressure ranging in the 120s to 90s/60s to 80s Saturating in 90s on 2 L Intake 1425 output 2600 total balance to date 1425/3930 Labs WBC count trending up 19.3, H/H stable platelet count trending down 76-58-61>55 Na 136, K 4.0,Cl 98, bicarbonate 28, BUN 56, creatinine 1.5 Total bilirubin 2.1 AST 410, ALT 1478, Hepatitis panel, HIV WNL PTT 24.4, PT 2.2. Fibrinogen 101 Troponins peaked at 0.14 yesterday. Lactic acidosis continues improving to 2. 2 in the morning PSA antigen 1.59 Micro Urine strep and Legionella antigen negative Urine culture, blood cultures negative to date Respiratory culture positive for moderate gram-positive cocci and budding yeast. Imaging Severe aortic stenosis on echocardiogram with moderate mitral insufficiency, mild to moderate left atrial enlargement. Global hypokinesia in septum, anterolateral and apical septal segments ejection fraction 25% only defined echodensity present in the distal inferoapical region which may represent a small laminar thrombus His findings are concerning concerning for previous NH Interventions planned for today -Repeat labs q12 -If patient has active bleeding. Transfuse fresh frozen plasma -If active bleeding and Platelets for less than 20 transfuse platelets -If any signs of acute pulmonary edema will consider IV Lasix 20 mg -Fluid resuscitation should be done very cautiously -Vit K x1 dose discussed with hematology Objective Vital Signs & I&O Last 8 Hrs of Vitals and I&O: Vital Signs Date Time Temp Pulse Resp B/P B/P Pulse O2 O2 Flow FiO2 Mean Ox Delivery Rate 01/05 1139 96 Room Air 01/05 0800 97.9 85 18 104/64 100 Nasal 2.0L Cannula 01/05 0800 100 Nasal 2.0L Cannula 01/05 0400 93 Nasal 2.0L Cannula 01/05 0000 97 Nasal 2.0L Cannula 01/05 0000 96.7 85 18 102/70 97 Nasal 2.0L Cannula 01/04 2000 98 Nasal 2.0L Cannula 01/04 1930 95 Nasal 2.0L Cannula 01/04 1600 98 Nasal 2.0L Cannula 01/04 1600 96.8 96 18 130/86 97 Nasal 2.0L Cannula 01/04 1340 Nasal 2.0L Cannula 01/04 1200 97 Nasal 2.0L Cannula Intake & Output 01/05 1600 01/05 0800 01/05 0000 Intake Total 220 240 Output Total 600 525 Balance -380 -285 Intake, IV Intake, Oral 220 240 Output, Dialysate Output, Urine 600 525 Patient 161 lb Weight Weight Bed scale Measurement Method Intake & Output 01/05 1600 Intake Total Output Total Balance Patient 161 lb Weight Weight Bed scale Measurement Method Exam General Appearance: well developed/nourished, anxious Head: atraumatic Neck: normal inspection Respiratory: decreased breath sounds, NO wheezes, NO crackels Cardiovascular: regular rate/rhythm Gastrointestinal: normal bowel sounds, soft, non-tender Extremities: normal inspection, no edema Cranial Nerves: normal hearing, normal speech Current Medications: Current Medications Sig/Yousuf Start time Last Medication Dose Route Stop Time Status Admin Albuterol Sulfate 3 ML Q4P PRN 01/04 1400 AC INH Ceftriaxone Sodium 1,000 MG Q24H 01/05 1100 AC 01/05 IV 1138 Ipratropium [place] 2.5 ML Q4P PRN 01/04 1400 AC INH Omeprazole 40 MG DAILY AC 01/04 1439 AC 01/05 PO 0608 Phytonadione 5 MG ONCE ONE 01/05 0900 DC 01/05 PO 01/05 0901 1027 Impression/Plan Impression/Problem List Impression: The patient is 72-year-old gentleman with history of COPD infrarenal aortic aneurysm, hyperlipidemia and back pain. Who presented to [place] ED with current complaint of dyspnea lower extremity edema and chest discomfort. He is currently being treated evaluate for following conditions * Worsening dyspnea lower extremity edema likely secondary to cor pulmonale, right-sided heart failure due to COPD * Transaminitis likely secondary to liver congestion * Thrombocytopenia,low fibrinogen most likely congestive coagulopathy * VERA cardiorenal? worsened by lasix, IV contrast * Elevated troponin multifactorial * Lactic acidosis hypoperfusion versus liver dysfunction * Leukocytosis probably reactive vs sepsis no probable source? Respiratory #Dyspnea Patient has history of COPD with 50 pack years of smoking, he presented with Worsening dyspnea for the past 4 days and increasing [place] [address]. CTA negative for PE but suggestive of contrast reflux into the inferior vena cava suggestive of Right-sided cardiac pathology. It is very likely that patient has a cor pulmanlae secondary to COPD causing right-sided heart failure -Echocardiogram see above -Oxygen supplementation to maintain oxygen saturation above 90% -TRC/nebulization treatment Infection #Leukocytosis; sepsis unlikely Presented with a WBC count of 16 can be reactive. NO bands. There is no obvious source of infection. Patient is afebrile and hemodynamically stable. He does have lactic acidosis but that can be explained by other etiologies as well -Continue to monitor fever and WBC curve, elevated white count -Sputum culture positive for Haemophilus speices treat versus not treat -Ceftriaxone 1 g daily Cardiology #Possible coronary artery disease Echocardiogram suggestive of NH. Patient will need eventual catheterization but in setting of coagulopathy it will have to be delayed #Infrarenal abdominal aortic aneurysm Patient has refused surgery in the past has increased in size from 5.2-5.4 cm. Vascular surgery has been consulted no acute intervention at this time. Can be a possible cause of consumption coagulopathy #Elveated Troponis Possible etiology can be right-sided heart failure, acute renal failure, pulmonary hypertension -Troponin peaked at 0.1 on 01/15 Hematology #Thrombocytopenia, Low Fibrinogen Possible etiologies includes congestive coagulopathy secondary to liver congestion, consumption coagulopathy with abdominal aortic aneurysm, DIC (sepsis , malignancy) and PE. Most likely patient has congestive cardiopathy secondary to liver congestion in setting of right heart failure. PE has been ruled out, patient does not appear to be in sepsis hemodynamically stable no source of infection, there were no schistocytes present on the smear. His H&H is stable -S/p one bag of cryoprecipitate on 01/05 -Consider platelet transfusion if <20 -Repeat CBC, PT, fibrinogen @42pm -If active bleeding consider fresh frozen plasma -Vit K oral x1 -Hematology recommendations appreciated Metabolic #Hyperbilirubinemia and transaminitis improving Most likely secondary to liver congestion -Continue to monitor -Hepatitis panel, HIV WNL #VERA Possible etiologies cardiorenal syndrome, worsened with lasix and IV contrast -Monitor creatinine will probably increase 2/2 contrast-improving -Encourage oral intake -Avoid nephrotoxins -Nephrology recommendations appreciated #Lactic acidosis Improving, can be secondary to liver dysfunction, intravascular hypoperfusion? spesis unlikely -Continue to trend Alimentary #Diet Heart healthy diet Nephrology #VERA- see above DVT prophylaxis #ALPS only in Setting of Thrombocytopenia Full Code Problem List: 1. COPD (chronic obstructive pulmonary disease) 2. AAA (abdominal aortic aneurysm) without rupture Pain Ratin Tomorrow's Labs & Rationales: cbc icu apt fibrinogen Plan DVT/Prophylaxis: mechanical, thrombocytopenia, coagulopathy
--- NOTE | 2018-01-05 09:48 | PN- CRCU ---
Subjective HPI/Critical Care Issues: Medically appears a little better Afebrile In sinus rhythm Blood pressure has been adequate He is on 2 L nasal cannula saturating 99% Is not on any IV fluids Did achieve some diuresis yesterday patient is negative No other significant complaints Labs noted WBC trending down platelets trending down now to 55 Other blood work reviewed BUN creatinine has improved slightly Bilirubin is 2.1 AST ALT has improved lactic acid is improving PSA 1.59 Sputum Gram stain showed gram-positive cocci and many gram-negative rods Ultrasound reviewed kidneys appear normal bilaterally INR from this morning is 2.22 has improved patient has received cryo-fibrinogen level has been more than 100 culture pending Objective Current Medications: Current Medications Sig/Yousuf Start time Last Medication Dose Route Stop Time Status Admin Albuterol Sulfate 3 ML Q4P PRN 01/04 1400 AC INH Ipratropium [place] 2.5 ML Q4P PRN 01/04 1400 AC INH Omeprazole 40 MG DAILY AC 01/04 1439 AC 01/05 PO 0608 Phytonadione 5 MG ONCE ONE 01/05 09 DC PO 01/05 0901 Vital Signs & I&O Last 24 Hrs of Vitals and I&O: Vital Signs Date Time Temp Pulse Resp B/P B/P Pulse O2 O2 Flow FiO2 Mean Ox Delivery Rate 01/06 800 97.9 85 18 104/64 100 Nasal 2.0L Cannula 01/05 0800 100 Nasal 2.0L Cannula 01/05 0400 93 Nasal 2.0L Cannula 01/05 0000 97 Nasal 2.0L Cannula 01/05 0000 96.7 85 18 102/70 97 Nasal 2.0L Cannula 01/04 2000 98 Nasal 2.0L Cannula 01/04 1930 95 Nasal 2.0L Cannula 01/04 1600 98 Nasal 2.0L Cannula 01/04 1600 96.8 96 18 130/86 97 Nasal 2.0L Cannula 01/04 1340 Nasal 2.0L Cannula 01/04 1200 97 Nasal 2.0L Cannula Intake & Output 01/05 1600 01/05 0800 01/05 0000 Intake Total 220 240 Output Total 600 525 Balance -380 -285 Intake, IV Intake, Oral 220 240 Output, Dialysate Output, Urine 600 525 Patient 161 lb Weight Weight Bed scale Measurement Method Impression/Plan Impression/Plan Impression/Plan: Gen - ok appearing Head - NCAT Eyes - anicteric sclera, EOMI Neck - supple, JVP up CV - RRR, no m/r/g Chest - clear anteriorly, no w/r/r Abd - soft, NTND Upper ext - warm, no edema Lower ext- warm, ++edema, knees with rashes b/l Skin - rash on knees, no jaundice Neuro - AOX3, grossly nonfocal This is a gentleman with history of significant smoking, severe COPD, baseline creatinine of 1, ongoing smoking, expanding AAA, dyslipidemia, came in with progressive dyspnea increased lower extremity edema with very mild hypoxemia. Since he came in here it appears that he probably does have significant right heart failure with clinical evidence suggestive of congestive liver with transaminitis and also he was found to be coagulopathic with high INR, low platelets with no clinical evidence suggestive of thrombotic thrombocytopenia. ISSUES * Dyspnea,lower extremity edema most likely related to right heart failure from his COPD compounded by severe LV dysfunction with critical * Severe COPD with no clinical evidence suggestive of wheezing or COPD exacerbation, but may have bronchitis * Severe cardiomyopathy with significantly depressed ejection fraction and Severe aortic stenosis * Elevated troponin with EKG changes, with LVWMA rule out ischemia and pt may need cardiac cath if his coagulopathy and other issues resolve * REsolving Acute kidney injury most likely related to right heart dysfunction, (now pt is s/p contrast aswell) * Improving elevated bili and transaminitis with no clinical suggestive evidence of obstructive jaundice * Thrombocytopenia associated with coagulopathy most likely associated with right heart failure. No evidence suggestive of venous thromboembolism. No clinical evidence suggestive of TTP with no schistocytes. Differential diagnoses is broad, hematology evaluation noted and differential diagnoses include most likely cor pulmonale with passive congestion/consumptive coagulopathy due to thrombus in the Abd aortic aneurysm,vascular surgery consult noted and at this time clinically stable with no evidence suggestive of leak / no obvious sepsis * Enlarging AAA vascular surgery consult noted. Patient does have increased thrombus noted with no evidence of leak or rupture * Significant small airway disease which is made worse and by mild left heart failure as well with prob bacterial bronchitis * Ongoing smoking, PVD, and multiple other risk factors with low flow state to the lower ext RECOMMENDATION * Continue nebulizer only if he is wheezing * Hold steroids * Can give po abx if his sputum comes back positive (prob ceftriaxone) * Watch his urine output * Check his lab work as noted by hematology and transfuse cryoprecipitate for fibrinogen level less than 100 * Watch for active bleeding give FFP if needed * Watch his platelets every 12 hours and if it's less than 20,000 needs platelet transfusion or if he is actively bleeding * Patient appears euvolemic at this time avoid diuresis * If he becomes hypoxemic and has acute pulmonary edema by clinical exam then we will trial a dose of Lasix. * Po ppi * Venodyne boots can be held if he is more active Pt is critically ill and tts 40 mins
--- NOTE | 2018-01-05 11:27 | PN- Nephrology ---
Assessment/Plan Nephrology Assessment: VERA - Improving. R sided CHF symptoms a/w transaminitis and reflux of contrast on CTA suggest renal venous congestion and nephrosarca as the underlying etiology. Elevated FENa suggests ATN (i.e. a single hypotensive insult leading to shock liver and ATN). Creatinine is starting to improve. Should note that he got contrast and I would not be surprised if his SCr went up. [place] urine sediment and Renal US without hydro c/w this diagnosis. CHF - TTE with reduced LVEF and severe . Cards following. Elevated RV pressure with primarily R sided symptoms on exam. If he can tolerate diuresis, I would continue. Suggestion: -Would cont to diurese as tolerated - 40mg IV lasix up to BID Please call [phone] with ?'s Subjective Subjective: SCr down to 1.5 2.3L UOP; weight 161 (down 5lbs since admit although up 2lbs since yesterday) TTE with severe , LVEF 25-30%, RV pressure 46mmHg No hydro on Renal US Objective Vital Signs and I&Os Vital Signs Date Time Temp Pulse Resp B/P B/P Pulse O2 O2 Flow FiO2 Mean Ox Delivery Rate 01/05 08 97.9 85 18 104/64 100 Nasal 2.0L Cannula 01/05 0800 100 Nasal 2.0L Cannula 01/05 0400 93 Nasal 2.0L Cannula 01/05 0000 97 Nasal 2.0L Cannula 01/05 0000 96.7 85 18 102/70 97 Nasal 2.0L Cannula 01/04 2000 98 Nasal 2.0L Cannula 01/04 1930 95 Nasal 2.0L Cannula 01/04 1600 98 Nasal 2.0L Cannula 01/04 1600 96.8 96 18 130/86 97 Nasal 2.0L Cannula 01/04 1340 Nasal 2.0L Cannula 01/04 1200 97 Nasal 2.0L Cannula Intake & Output 01/05 1600 01/05 0400 01/04 1600 01/04 0400 01/03 1600 01/03 0400 Intake Total 220 240 965 Output Total 002 493 3728 1350 Balance -380 -285 -510 -1350 Intake, IV 125 Intake, Oral 220 240 840 Number 0 Bowel Movements Output, Dialysate Output, Urine 163 653 2540 1350 Patient 161 lb 159 lb 158 lb Weight Weight Bed scale Bed scale Bed scale Measurement Method Physical Exam: Gen - OK appearing HEENT - JVP visible CV - RRR, no m/r/g Chest - clear Abd - soft, nontender, nondistended Ext - cyanotic hands/feet, ++edema Neuro - AOX3, grossly nonfocal Current Medications: Current Medications Sig/Yousuf Start time Last Medication Dose Route Stop Time Status Admin Albuterol Sulfate 3 ML Q4P PRN 01/04 1400 AC INH Ceftriaxone Sodium 1,000 MG Q24H 01/05 1100 AC IV Ipratropium [place] 2.5 ML Q4P PRN 01/04 1400 AC INH Omeprazole 40 MG DAILY AC 01/04 1439 AC 01/05 PO 0608 Phytonadione 5 MG ONCE ONE 01/05 900 DC 01/05 PO 01/05 0901 1027 Results Pertinent Lab Results: Laboratory Tests 01/05 01/05 01/05 0844 0800 0415 Chemistry Lactic Acid (0.7 - 2.1 mmol/L) Cancelled Cancelled 2.2 H 01/05 01/05 01/04 0415 0015 2100 Chemistry Sodium (137 - 145 mmol/L) 136 L Potassium (3.5 - 5.1 mmol/L) 4.0 Chloride (98 - 107 mmol/L) 96 L Carbon Dioxide (22 - 30 mmol/L) 28 Anion Gap (5 - 16) 11 BUN (9 - 20 mg/dL) 56 H Creatinine (0.7 - 1.2 mg/dL) 1.5 H Estimated GFR (>60 ml/min) 46 L Glucose (65 - 99 mg/dL) 116 H Lactic Acid (0.7 - 2.1 mmol/L) 3.2 H 4.0 H Calcium (8.4 - 10.2 mg/dL) 8.6 Phosphorus (2.5 - 4.5 mg/dL) 3.8 Magnesium (1.6 - 2.3 mg/dL) 2.5 H Total Bilirubin (0.2 - 1.3 mg/dL) 2.1 H AST (17 - 59 U/L) 410 H ALT (21 - 72 U/L) 1478 H Albumin (3.5 - 5.0 g/dL) 3.3 L Coagulation PT (9.4 - 12.5 SEC) 24.4 H INR (0.90 - 1.17) 2.22 H APTT (25 - 37 SEC) 27 Fibrinogen Activity (200 - 393 MG/DL) 101 L D-Dimer High Sensitivty (0 - 243 ng/ml) 2595 H Hematology CBC w Diff MAN DIFF ORDERED WBC (4.8 - 10.8 /CUMM) 19.3 H RBC (4.70 - 6.10 /CUMM) 4.77 Hgb (14.0 - 18.0 G/DL) 14.0 Hct (42 - 52 %) 43.0 MCV (80.0 - 94.0 FL) 90.1 MCH (27.0 - 31.0 PG) 29.4 MCHC (33.0 - 37.0 G/DL) 32.6 L RDW (11.5 - 14.5 %) 17.1 H Plt Count (130 - 400 /CUMM) 55 L MPV (7.4 - 10.4 FL) 9.3 Gran % (42.2 - 75.2 %) 94.1 H Lymphocytes % (20.5 - 51.1 %) 2.2 L Monocytes % (1.7 - 9.3 %) 3.6 Eosinophils % (0 - 5 %) 0 Basophils % (0.0 - 2.0 %) 0.1 Absolute Granulocytes (1.4 - 6.5 /CUMM) 18.2 H Segmented Neutrophils (42.2 - 75.2 %) 90 H Absolute Lymphocytes (1.2 - 3.4 /CUMM) 0.4 L Lymphocytes (20.5 - 51.1 %) 5 L Monocytes (1.7 - 9.3 %) 5 Absolute Monocytes (0.10 - 0.60 /CUMM) 0.7 H Absolute Eosinophils (0.0 - 0.7 /CUMM) 0 Absolute Basophils (0.0 - 0.2 /CUMM) 0 Nucleated RBCs (0.0 - 0.0 /100WBC) 1 H Platelet Estimate (ADEQUATE) DECREASED Polychromasia 1+ Poikilocytosis 1+ Ovalocytes 1+ Other Body Source F[place] Total RBCs Counted (%) 100 03/07 03/07 1700 1610 Chemistry Sodium (137 - 145 mmol/L) 137 Potassium (3.5 - 5.1 mmol/L) 4.3 Chloride (98 - 107 mmol/L) 95 L Carbon Dioxide (22 - 30 mmol/L) 27 Anion Gap (5 - 16) 15 BUN (9 - 20 mg/dL) 58 H Creatinine (0.7 - 1.2 mg/dL) 1.9 H Estimated GFR (>60 ml/min) 35 L Glucose (65 - 99 mg/dL) 113 H Lactic Acid (0.7 - 2.1 mmol/L) 3.7 H Calcium (8.4 - 10.2 mg/dL) 8.6 Phosphorus (2.5 - 4.5 mg/dL) 4.2 Magnesium (1.6 - 2.3 mg/dL) 2.4 H Total Bilirubin (0.2 - 1.3 mg/dL) 2.5 H AST (17 - 59 U/L) 539 H ALT (21 - 72 U/L) 1691 H Albumin (3.5 - 5.0 g/dL) 3.5 Coagulation PT (9.4 - 12.5 SEC) 26.3 H INR (0.90 - 1.17) 2.39 H APTT (25 - 37 SEC) 30 Fibrinogen Activity (200 - 393 MG/DL) 114 L Hematology CBC w Diff Cancelled NO MAN DIFF REQ WBC (4.8 - 10.8 /CUMM) Cancelled 16.8 H RBC (4.70 - 6.10 /CUMM) Cancelled 4.90 Hgb (14.0 - 18.0 G/DL) Cancelled 14.4 Hct (42 - 52 %) Cancelled 44.4 MCV (80.0 - 94.0 FL) Cancelled 90.6 MCH (27.0 - 31.0 PG) Cancelled 29.5 MCHC (33.0 - 37.0 G/DL) Cancelled 32.5 L RDW (11.5 - 14.5 %) Cancelled 17.2 H Plt Count (130 - 400 /CUMM) Cancelled 61 L MPV (7.4 - 10.4 FL) Cancelled 9.8 Gran % (42.2 - 75.2 %) 93.6 H Lymphocytes % (20.5 - 51.1 %) 1.9 L Monocytes % (1.7 - 9.3 %) 4.5 Eosinophils % (0 - 5 %) 0 Basophils % (0.0 - 2.0 %) 0 Absolute Granulocytes (1.4 - 6.5 /CUMM) 15.7 H Absolute Lymphocytes (1.2 - 3.4 /CUMM) 0.3 L Absolute Monocytes (0.10 - 0.60 /CUMM) 0.7 H Absolute Eosinophils (0.0 - 0.7 /CUMM) 0 Absolute Basophils (0.0 - 0.2 /CUMM) 0 01/04 01/04 01/04 1500 1500 1230 Chemistry Lactic Acid (0.7 - 2.1 mmol/L) 3.2 H Troponin I (<0.11 ng/ml) 0.12 *H Urines Urinalysis LIGHT H Urine Color (YEL,AMB,STR) YEL Urine Clarity (CLEAR) CLEAR Urine pH (5.0 - 8.0) 5.5 Ur Specific [place] (1.001 - 1.035) 1.010 Urine Protein (NEG,<30 MG/DL) TRACE H Urine Ketones (NEG) NEG Urine Nitrite (NEG) NEG Urine Bilirubin (NEG) NEG Urine Urobilinogen (0.1 - 1.0 EU/dl) 0.2 Ur Leukocyte Esterase (NEG) NEG Ur Microscopic SEDIMENT EXAMINED Urine RBC (0 - 5 /HPF) RARE Urine WBC (0 - 2 /HPF) RARE Ur Epithelial Cells (NONE,FEW) MOD H Hyaline Casts (0/LPF) 1-3 H Granular Casts (NONE /LPF) 3-5 H Urine Mucus (FEW,NONE) FEW Urine Hemoglobin (NEG) SMALL H Ur Random Creatinine (mg/dL) 23.9 Ur Random Sodium (30 - 90 mmol/L) 57 Ur Random Potassium (mmol/L) 35.4 Fraction Sodium Excret (<1% %) 3.2 H Urine Glucose (N MG/DL) NEG 01/04 01/04 01/04 0800 0530 0340 Chemistry Sodium (137 - 145 mmol/L) 136 L Potassium (3.5 - 5.1 mmol/L) 4.3 Chloride (98 - 107 mmol/L) 96 L Carbon Dioxide (22 - 30 mmol/L) 26 Anion Gap (5 - 16) 13 BUN (9 - 20 mg/dL) 57 H Creatinine (0.7 - 1.2 mg/dL) 1.8 H Estimated GFR (>60 ml/min) 37 L Glucose (65 - 99 mg/dL) 112 H Lactic Acid (0.7 - 2.1 mmol/L) 2.2 H 3.1 H Calcium (8.4 - 10.2 mg/dL) 9.1 Phosphorus (2.5 - 4.5 mg/dL) 5.0 H Magnesium (1.6 - 2.3 mg/dL) 2.4 H Total Bilirubin (0.2 - 1.3 mg/dL) 2.2 H AST (17 - 59 U/L) 637 H ALT (21 - 72 U/L) 1966 H Alkaline Phosphatase (< 127 U/L) 240 H Troponin I (<0.11 ng/ml) 0.14 *H Albumin (3.5 - 5.0 g/dL) 3.5 Total PSA (0.00 - 4.00 ng/mL) 1.59 Coagulation PT (9.4 - 12.5 SEC) 28.6 H INR (0.90 - 1.17) 2.60 H APTT (25 - 37 SEC) 32 Fibrinogen Activity (200 - 393 MG/DL) 89 L D-Dimer High Sensitivty (0 - 243 ng/ml) 1882 H Hematology CBC w Diff MAN DIFF ORDERED WBC (4.8 - 10.8 /CUMM) 11.6 H RBC (4.70 - 6.10 /CUMM) 5.12 Hgb (14.0 - 18.0 G/DL) 15.1 Hct (42 - 52 %) 46.2 MCV (80.0 - 94.0 FL) 90.2 MCH (27.0 - 31.0 PG) 29.4 MCHC (33.0 - 37.0 G/DL) 32.6 L RDW (11.5 - 14.5 %) 16.6 H Plt Count (130 - 400 /CUMM) 58 L MPV (7.4 - 10.4 FL) 9.3 Gran % (42.2 - 75.2 %) 93.0 H Lymphocytes % (20.5 - 51.1 %) 4.4 L Monocytes % (1.7 - 9.3 %) 2.5 Eosinophils % (0 - 5 %) 0 Basophils % (0.0 - 2.0 %) 0.1 Absolute Granulocytes (1.4 - 6.5 /CUMM) 10.8 H Segmented Neutrophils (42.2 - 75.2 %) 94 H Absolute Lymphocytes (1.2 - 3.4 /CUMM) 0.5 L Lymphocytes (20.5 - 51.1 %) 1 L Monocytes (1.7 - 9.3 %) 5 Absolute Monocytes (0.10 - 0.60 /CUMM) 0.3 Absolute Eosinophils (0.0 - 0.7 /CUMM) 0 Absolute Basophils (0.0 - 0.2 /CUMM) 0 Nucleated RBCs (0.0 - 0.0 /100WBC) 2 H Platelet Estimate (ADEQUATE) VERIFIED BY SMEAR Polychromasia 1+ Anisocytosis 1+ Macrocytic Cells FEW Target Cells RARE [place] Cells FEW Elliptocytes FEW Serology Hepatitis A IgM Ab (NONREACTIVE) NONREACTIVE Hep Bs Antigen (NONREACTIVE) NONREACTIVE Hep B Core IgM Ab Conf (NONREACTIVE) NONREACTIVE Hepatitis C Antibody (NONREACTIVE) NONREACTIVE HIV 1&2 Ab Western Blot (NONREACTIVE) NONREACTIVE 01/04 01/03 01/03 0200 2340 2240 Chemistry Sodium (137 - 145 mmol/L) 135 L Potassium (3.5 - 5.1 mmol/L) 4.4 Chloride (98 - 107 mmol/L) 95 L Carbon Dioxide (22 - 30 mmol/L) 24 Anion Gap (5 - 16) 16 BUN (9 - 20 mg/dL) 58 H Creatinine (0.7 - 1.2 mg/dL) 1.6 H Estimated GFR (>60 ml/min) 43 L Glucose (65 - 99 mg/dL) 123 H Lactic Acid (0.7 - 2.1 mmol/L) Cancelled 3.5 H Calcium (8.4 - 10.2 mg/dL) 9.0 Phosphorus (2.5 - 4.5 mg/dL) 4.9 H Magnesium (1.6 - 2.3 mg/dL) 2.3 Total Bilirubin (0.2 - 1.3 mg/dL) 2.7 H AST (17 - 59 U/L) 715 H ALT (21 - 72 U/L) 2053 H Troponin I (<0.11 ng/ml) 0.11 *H Albumin (3.5 - 5.0 g/dL) 3.6 Hematology CBC w Diff NO MAN DIFF REQ WBC (4.8 - 10.8 /CUMM) 14.0 H RBC (4.70 - 6.10 /CUMM) 5.15 Hgb (14.0 - 18.0 G/DL) 15.2 Hct (42 - 52 %) 46.5 MCV (80.0 - 94.0 FL) 90.4 MCH (27.0 - 31.0 PG) 29.5 MCHC (33.0 - 37.0 G/DL) 32.6 L RDW (11.5 - 14.5 %) 17.2 H Plt Count (130 - 400 /CUMM) 76 L MPV (7.4 - 10.4 FL) 9.6 Gran % (42.2 - 75.2 %) 91.8 H Lymphocytes % (20.5 - 51.1 %) 5.0 L Monocytes % (1.7 - 9.3 %) 2.9 Eosinophils % (0 - 5 %) 0 Basophils % (0.0 - 2.0 %) 0.3 Absolute Granulocytes (1.4 - 6.5 /CUMM) 12.9 H Absolute Lymphocytes (1.2 - 3.4 /CUMM) 0.7 L Absolute Monocytes (0.10 - 0.60 /CUMM) 0.4 Absolute Eosinophils (0.0 - 0.7 /CUMM) 0 Absolute Basophils (0.0 - 0.2 /CUMM) 0 03/06 1730 Chemistry Sodium (137 - 145 mmol/L) 133 L Potassium (3.5 - 5.1 mmol/L) 5.1 Chloride (98 - 107 mmol/L) 96 L Carbon Dioxide (22 - 30 mmol/L) 24 Anion Gap (5 - 16) 13 BUN (9 - 20 mg/dL) 59 H Creatinine (0.7 - 1.2 mg/dL) 1.6 H Estimated GFR (>60 ml/min) 43 L BUN/Creatinine Ratio (7 - 25 %) 36.9 H Glucose (65 - 99 mg/dL) 109 H Lactic Acid (0.7 - 2.1 mmol/L) 4.0 H Calcium (8.4 - 10.2 mg/dL) 9.2 Total Bilirubin (0.2 - 1.3 mg/dL) 2.5 H AST (17 - 59 U/L) 717 H ALT (21 - 72 U/L) 2269 H Alkaline Phosphatase (< 127 U/L) 252 H Troponin I (<0.11 ng/ml) 0.13 *H [id number]-[id number] Pept (<125 pg/mL) 15342 H Total Protein (6.3 - 8.2 g/dL) 6.9 Albumin (3.5 - 5.0 g/dL) 3.8 Globulin (1.9 - 4.2 gm/dL) 3.1 Albumin/Globulin Ratio (1.1 - 2.2 %) 1.2 Amylase (30 - 110 U/L) 35 Lipase (23 - 300 U/L) 139 Coagulation PT (9.4 - 12.5 SEC) 32.1 H INR (0.90 - 1.17) 2.91 H APTT (25 - 37 SEC) 31 D-Dimer High Sensitivty (0 - 243 ng/ml) 1850 H Hematology CBC w Diff NO MAN DIFF REQ WBC (4.8 - 10.8 /CUMM) 16.4 H RBC (4.70 - 6.10 /CUMM) 5.28 Hgb (14.0 - 18.0 G/DL) 15.7 Hct (42 - 52 %) 47.6 MCV (80.0 - 94.0 FL) 90.3 MCH (27.0 - 31.0 PG) 29.7 MCHC (33.0 - 37.0 G/DL) 32.9 L RDW (11.5 - 14.5 %) 16.9 H Plt Count (130 - 400 /CUMM) 76 L MPV (7.4 - 10.4 FL) 9.5 Gran % (42.2 - 75.2 %) 87.5 H Lymphocytes % (20.5 - 51.1 %) 5.7 L Monocytes % (1.7 - 9.3 %) 6.7 Eosinophils % (0 - 5 %) 0 Basophils % (0.0 - 2.0 %) 0.1 Absolute Granulocytes (1.4 - 6.5 /CUMM) 14.3 H Absolute Lymphocytes (1.2 - 3.4 /CUMM) 0.9 L Absolute Monocytes (0.10 - 0.60 /CUMM) 1.1 H Absolute Eosinophils (0.0 - 0.7 /CUMM) 0 Absolute Basophils (0.0 - 0.2 /CUMM) 0 Imaging/Other Studies: TTE CONCLUSIONS 1. 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 Peak gradient is 42 mmHg with a mean gradient 20 mmHg and an estimated valve area of 0.6 cm. Mild aortic insufficiency is also present. 2. Mitral leaflet thickening is present with moderate annular calcification and mild to moderate mitral insufficiency with mild to moderate left atrial enlargement. 3. No significant pericardial fluid is detected on the study. 4. The left ventricular chamber size is normal. There is global hypokinesia present which is much more prominent in the mid to distal septum, anterolateral and apical segments. Ejection fraction is approximately 25-30%. There is an ill-defined echodensity present in the distal inferoapical region which may represent a small laminar thrombus. Additional images were obtained following the administration of IV contrast. Diastolic dysfunction is also noted. 5. Mild tricuspid and pulmonic insufficiency are present. Mild pulmonary hypertension is present with a right ventricular systolic pressure 46 mmHg. 6. No prior study was available for comparison. EXAM TYPE: US - US-RENAL/KIDNEY EXAMINATION: US RETROPERITONEAL COMPLETE (RENAL) CLINICAL INFORMATION: Acute kidney insufficiency. Worsening creatinine. COMPARISON: CT scan of the abdomen and pelvis 01/03/2018. TECHNIQUE: Real-time imaging of the kidneys and bladder. FINDINGS: RIGHT KIDNEY: 11.1 x 4.5 x 4.5 cm (SAG x AP x TRV). The kidney is normal in size, contour, and echogenicity. Renal cortical thickness is normal. No calculi or focal parenchymal lesions. No hydronephrosis. LEFT KIDNEY: 10.1 x 4.8 x 4.0 cm (SAG x AP x TRV). The lower pole is not well visualized on the current study. The kidney is normal in size, contour, and echogenicity. Renal cortical thickness is normal. No calculi or focal parenchymal lesions. No hydronephrosis. BLADDER: Well-distended and normal. Bilateral ureteral jets are demonstrated. OTHER: An aneurysm of the abdominal aorta is redemonstrated at the mid/distal aorta, more fully evaluated on the CT scan of the abdomen and pelvis. IMPRESSION: 1. The kidneys appear normal bilaterally. There is no hydronephrosis. There are no echogenic renal calculi. 2. The study redemonstrates the infrarenal abdominal aortic aneurysm.
--- NOTE | 2018-01-05 11:59 | RADIOLOGY REPORT ---
EXAMINATION: XR PORTABLE CHEST CLINICAL INFORMATION: COPD. Right-sided heart failure. COMPARISON: Chest x-ray dated 12/16/2017. TECHNIQUE: Portable AP semierect view of the chest was obtained. FINDINGS: EKG leads overlie the chest. The cardiomediastinal silhouette is prominent in size, likely related to AP technique. Lungs bilaterally are symmetrically expanded and continue to demonstrate central vascular congestion and mild increased reticular opacities, similar to the previous exam, suggesting mild pulmonary edema. There is blunting of the left CP angle, consistent with a small pleural effusion. No focal consolidation or pneumothorax is seen. Bony structures are unremarkable. IMPRESSION: Findings are consistent with mild pulmonary edema and small left pleural effusion. Similar findings were seen previously.
[2018-01-05 12:00] VITALS: BP 110/69
--- NOTE | 2018-01-05 12:10 | PN- Att Addend ---
Attending Addendum Attending Brief Note Patient still in ICU still not feeling well in no respiratory distress while in bed is saturating at 99% with 2 L of oxygen. His other vital signs seem stable with no major changes on physical had some diuresis without diuretics. He had an echocardiogram which showed severe aortic stenosis very low ejection fraction. His white count is down a little bit his platelets are low when slightly improved his liver function tests are improved INR was 2.2 sputum question of Haemophilus influenza appreciate student and pulmonary's input and recommendations continue treatment T RC oxygen and eventually when the coagulopathies are resolved need a cardiac catheterization and be treated accordingly to the results close observation. Intake & Output 01/05 04001/04 04001/03 1600 01/03 0400 Intake Total 220 240 965 Output Total 865 501 6222 1350 Balance -380 -285 -510 -1350 Intake, IV 125 Intake, Oral 220 240 840 Number 0 Bowel Movements Output, Dialysate Output, Urine 376 926 8621 1350 Patient 161 lb 159 lb 158 lb Weight Weight Bed scale Bed scale Bed scale Measurement Method Current Medications Sig/Yousuf Start time Last Medication Dose Route Stop Time Status Admin Albuterol Sulfate 3 ML Q4P PRN 01/04 1400 AC INH Ceftriaxone Sodium 1,000 MG Q24H 01/05 1100 AC 01/05 IV 1138 Ipratropium [place] 2.5 ML Q4P PRN 01/04 1400 AC INH Omeprazole 40 MG DAILY AC 01/04 1439 AC 01/05 PO 0608 Phytonadione 5 MG ONCE ONE 01/05 0900 DC 01/05 PO 01/05 0901 1027 Laboratory Tests 01/05/18 0844: Lactic Acid Cancelled 01/05/18 0800: Lactic Acid Cancelled 01/05/18 0415: Lactic Acid 2.2 H 01/05/18 0415: Anion Gap 11, Estimated GFR 46 L, Glucose 116 H, Calcium 8.6, Phosphorus 3.8, Magnesium 2.5 H, Total Bilirubin 2.1 H, AST 410 H, ALT 1478 H, Albumin 3.3 L, PT 24.4 H, INR 2.22 H, APTT 27, Fibrinogen Activity 101 L, D-Dimer High Sensitivty 2595 H, CBC w Diff MAN DIFF ORDERED, RBC 4.77, MCV 90.1, MCH 29.4, MCHC 32.6 L, RDW 17.1 H, MPV 9.3, Gran % 94.1 H, Lymphocytes % 2.2 L, Monocytes % 3.6, Eosinophils % 0, Basophils % 0.1, Absolute Granulocytes 18.2 H , Segmented Neutrophils 90 H, Absolute Lymphocytes 0.4 L, Lymphocytes 5 L, Monocytes 5, Absolute Monocytes 0.7 H, Absolute Eosinophils 0, Absolute Basophils 0, Nucleated RBCs 1 H, Platelet Estimate DECREASED, Polychromasia 1+, Poikilocytosis 1+, Ovalocytes 1+, Fld Total RBCs Counted 100 01/05/18 0015: Lactic Acid 3.2 H 01/04/18 2100: Lactic Acid 4.0 H 01/04/18 1700: CBC w Diff Cancelled, WBC Cancelled, RBC Cancelled, Hgb Cancelled, Hct Cancelled , MCV Cancelled, MCH Cancelled, MCHC Cancelled, RDW Cancelled, Plt Count Cancelled, MPV Cancelled 01/04/18 1610: Anion Gap 15, Estimated GFR 35 L, Glucose 113 H, Lactic Acid 3.7 H, Calcium 8.6, Phosphorus 4.2, Magnesium 2.4 H, Total Bilirubin 2.5 H, AST 539 H, ALT 1691 H, Albumin 3.5, PT 26.3 H, INR 2.39 H, APTT 30, Fibrinogen Activity 114 L, CBC w Diff NO MAN DIFF REQ, RBC 4.90, MCV 90.6, MCH 29.5, MCHC 32.5 L, RDW 17.2 H, MPV 9.8, Gran % 93.6 H, Lymphocytes % 1.9 L, Monocytes % 4.5, Eosinophils % 0, Basophils % 0, Absolute Granulocytes 15.7 H, Absolute Lymphocytes 0.3 L, Absolute Monocytes 0.7 H, Absolute Eosinophils 0, Absolute Basophils 0 01/04/18 1500: Urinalysis LIGHT H, Urine Color YEL, Urine Clarity CLEAR, Urine pH 5.5, Ur Specific [place] 1.010, Urine Protein TRACE H, Urine Ketones NEG, Urine Nitrite NEG, Urine Bilirubin NEG, Urine Urobilinogen 0.2, Ur Leukocyte Esterase NEG, Ur Microscopic SEDIMENT EXAMINED, Urine RBC RARE, Urine WBC RARE, Ur Epithelial Cells MOD H, Hyaline Casts 1-3 H, Granular Casts 3-5 H, Urine Mucus FEW, Urine Hemoglobin SMALL H, Urine Glucose NEG 01/04/18 1500: Troponin I 0.12 *H, Ur Random Creatinine 23.9, Ur Random Sodium 57, Ur Random Potassium 35.4, Fraction Sodium Excret 3.2 H 01/04/18 1230: Lactic Acid 3.2 H 01/04/18 0800: Lactic Acid 2.2 H 01/04/18 0530: Anion Gap 13, Estimated GFR 37 L, Glucose 112 H, Calcium 9.1, Phosphorus 5.0 H, Magnesium 2.4 H, Total Bilirubin 2.2 H, AST 637 H, ALT 1966 H, Alkaline Phosphatase 240 H, Troponin I 0.14 *H, Albumin 3.5, Total PSA 1.59, PT 28.6 H, INR 2.60 H, APTT 32, Fibrinogen Activity 89 L, D-Dimer High Sensitivty 1882 H , CBC w Diff MAN DIFF ORDERED, RBC 5.12, MCV 90.2, MCH 29.4, MCHC 32.6 L, RDW 16.6 H, MPV 9.3, Gran % 93.0 H, Lymphocytes % 4.4 L, Monocytes % 2.5, Eosinophils % 0, Basophils % 0.1, Absolute Granulocytes 10.8 H, Segmented Neutrophils 94 H, Absolute Lymphocytes 0.5 L, Lymphocytes 1 L, Monocytes 5, Absolute Monocytes 0.3, Absolute Eosinophils 0, Absolute Basophils 0, Nucleated RBCs 2 H, Platelet Estimate VERIFIED BY SMEAR, Polychromasia 1+, Anisocytosis 1 +, Macrocytic Cells FEW, Target Cells RARE, [place] Cells FEW, Elliptocytes FEW, Hepatitis A IgM Ab NONREACTIVE, Hep Bs Antigen NONREACTIVE, Hep B Core IgM Ab Conf NONREACTIVE, Hepatitis C Antibody NONREACTIVE, HIV 1&2 Ab Western Blot NONREACTIVE 01/04/18 0340: Lactic Acid 3.1 H 01/04/18 0200: Lactic Acid Cancelled 01/03/18 2340: Anion Gap 16, Estimated GFR 43 L, Glucose 123 H, Calcium 9.0, Phosphorus 4.9 H, Magnesium 2.3, Total Bilirubin 2.7 H, AST 715 H, ALT 2053 H, Troponin I 0.11 *H, Albumin 3.6, CBC w Diff NO MAN DIFF REQ, RBC 5.15, MCV 90.4, MCH 29.5, MCHC 32.6 L, RDW 17.2 H, MPV 9.6, Gran % 91.8 H, Lymphocytes % 5.0 L, Monocytes % 2.9, Eosinophils % 0, Basophils % 0.3, Absolute Granulocytes 12.9 H , Absolute Lymphocytes 0.7 L, Absolute Monocytes 0.4, Absolute Eosinophils 0, Absolute Basophils 0 01/03/18 2240: Lactic Acid 3.5 H 01/03/18 1730: Anion Gap 13, Estimated GFR 43 L, BUN/Creatinine Ratio 36.9 H, Glucose 109 H, Lactic Acid 4.0 H, Calcium 9.2, Total Bilirubin 2.5 H, AST 717 H, ALT 2269 H , Alkaline Phosphatase 252 H, Troponin I 0.13 *H, Grw-U-Hbyqedpgser Pept 58414 H, Total Protein 6.9, Albumin 3.8, Globulin 3.1, Albumin/Globulin Ratio 1.2, Amylase 35, Lipase 139, PT 32.1 H, INR 2.91 H, APTT 31, D-Dimer High Sensitivty 1850 H, CBC w Diff NO MAN DIFF REQ, RBC 5.28, MCV 90.3, MCH 29.7, MCHC 32.9 L, RDW 16.9 H, MPV 9.5, Gran % 87.5 H, Lymphocytes % 5.7 L, Monocytes % 6.7, Eosinophils % 0, Basophils % 0.1, Absolute Granulocytes 14.3 H , Absolute Lymphocytes 0.9 L, Absolute Monocytes 1.1 H, Absolute Eosinophils 0 , Absolute Basophils 0 Microbiology 01/04 1500 URINE ROUT: Legionella Antigen - COMP 01/04 1500 URINE ROUT: Streptococcus pneumoniae Antigen (M - COMP 01/04 1315 LOWER RESP: Respiratory Culture - RES GRAM NEGATIVE RODS HEMOPHILUS SPECIES 01/04 1315 LOWER RESP: Gram Stain - RES 01/04 1230 URINE ROUT: Urine Culture - RES 01/04 0240 UPPER RESP: Surveillance Culture - COMP 01/04 0240 GI: Surveillance Culture - COMP 01/03 2250 BLOOD: Blood Culture - RES 01/04 2240 BLOOD: Blood Culture - RES Microbiology 01/04 1500 URINE ROUT: Legionella Antigen - COMP 01/04 1500 URINE ROUT: Streptococcus pneumoniae Antigen (M - COMP 01/04 1315 LOWER RESP: Respiratory Culture - RES GRAM NEGATIVE RODS HEMOPHILUS SPECIES 01/04 1315 LOWER RESP: Gram Stain - RES 01/04 1230 URINE ROUT: Urine Culture - RES 01/04 0240 UPPER RESP: Surveillance Culture - COMP 01/05 240 GI: Surveillance Culture - COMP 01/03 2250 BLOOD: Blood Culture - RES 01/04 2240 BLOOD: Blood Culture - RES Vital Signs Date Time Temp Pulse Resp B/P B/P Pulse O2 O2 Flow FiO2 Mean Ox Delivery Rate 01/05 1200 97.9 82 30 110/69 98 Room Air 01/05 1139 96 Room Air 01/05 0800 97.9 85 18 104/64 100 Nasal 2.0L Cannula 01/05 0800 100 Nasal 2.0L Cannula 01/05 0400 93 Nasal 2.0L Cannula 01/05 0000 97 Nasal 2.0L Cannula 01/05 0000 96.7 85 18 102/70 97 Nasal 2.0L Cannula 01/04 2000 98 Nasal 2.0L Cannula 01/04 1930 95 Nasal 2.0L Cannula 01/04 1600 98 Nasal 2.0L Cannula 01/04 1600 96.8 96 18 130/86 97 Nasal 2.0L Cannula 01/04 1340 Nasal 2.0L Cannula Monitor CBC adjust antibiotics according to the culture results.
[2018-01-05 12:48] VITALS: BP 94/60
[2018-01-05 14:39] LABS: ABSOLUTE BASOPHIL COUNT 0 /CUMM (0.0-0.2); ABSOLUTE EOSINOPHIL COUNT 0 /CUMM (0.0-0.7); ABSOLUTE GRANULOCYTE CT 16.4 /CUMM (1.4-6.5); ABSOLUTE LYMPH COUNT 0.4 /CUMM (1.2-3.4); ABSOLUTE MONOCYTE COUNT 0.5 /CUMM (0.10-0.60); BASOPHIL % 0.2 % (0.0-2.0); EOSINOPHIL % 0 % (0-5); GRANULOCYTE % 94.6 % (42.2-75.2); HEMATOCRIT 44.6 % (42-52); MEAN CORPUSCULAR HGB 28.7 PG (27.0-31.0); MEAN CORPUSCULAR HGB CONC 31.7 G/DL (33.0-37.0); MEAN CORPUSCULAR VOLUME 90.5 FL (80.0-94.0); MEAN PLATELET VOLUME 9.9 FL (7.4-10.4); RBC DISTRIBUTION WIDTH 17.1 % (11.5-14.5); RED BLOOD CELL CT 4.93 /CUMM (4.70-6.10)
[2018-01-05 14:54] LABS: PLATELET COUNT 86 /CUMM (130-400); WHITE BLOOD CELL COUNT 17.4 /CUMM (4.8-10.8)
[2018-01-05] MEDS ORDERED: CEFTRIAXONE1 G1 IV (15:13)
[2018-01-05] MEDS ORDERED: OMEPRAZOLE20 M2 PO (15:13)
[2018-01-05] MEDS ORDERED: IPRATROPIU0.2 MG/1 M INH (15:13)
--- NOTE | 2018-01-05 15:23 | Patient Discharge Instructions ---
Discharge Instructions General Discharge Information You were seen/treated for: Thrombocytopenia Acute Kidney injury Transaminitis Hyperbilirubinemia Infrarenal abdominal aortic aneurysm Coronary artery disease Special Instructions: Please follow-up with PCP Please follow-up with Cardiology for aortic stenosis Please follow-up with Hematlogy for low platelets and low fibrinogen Please follow up with Vascular for Abdominal Aortic Aneursym Diet Continue normal diet: No Recommended Diet: Heart Healthy Activity Activity Self Limited: Yes Acute Coronary Syndrome Inclusion Criteria At DC or during hospital stay patient has or had the following: ACS DIAGNOSIS No Discharge Core Measures Meds if any: Prescribed or Continued at Discharge Meds if any: NOT Prescribed or Continued at Discharge Congestive Heart Failure Inclusion Criteria At DC or during hospital stay patient has or had the following: CHF DIAGNOSIS No Discharge Core Measures Meds if any: Prescribed or Continued at Discharge Meds if any: NOT Prescribed or Continued at Discharge Cerebrovascular accident Inclusion Criteria At DC or during hospital stay patient has or had the following: CVA/TIA Diagnosis No Discharge Core Measures Meds if any: Prescribed or Continued at Discharge Meds if any: NOT Prescribed or Continued at Discharge Venous thromboembolism Inclusion Criteria VTE Diagnosis No VTE Type NONE VTE Confirmed by (Test) NONE Discharge Core Measures - Per Current guidelines, there needs to be overlap - treatment for the first 5 days of Warfarin therapy. - If discharged on Warfarin prior to 5 days of - overlap therapy, the patient will need to be - assessed for post discharge needs including - *Post discharge parental anticoagulation - *Warfarin and/or parental anticoagulation education - *Follow up date to check INR post discharge At least 5 days overlap therapy as Inpatient No Meds if any: Prescribed or Continued at Discharge Note: Overlap Therapy is Warfarin and Anticoagulant Meds if any: NOT Prescribed or Continued at Discharge
--- NOTE | 2018-01-05 15:29 | Discharge Summary ---
Visit Information Visit Dates Admission Date: 01/03/18 Discharge Date: 01/05/2017 Hospital Course Course Attending Physician: Lizbeth GARNER,Leonard Primary Care Physician: Lizbeth GARNER,Leonard [facility] Course: The patient is a 72-year-old gentleman with known history of COPD not on home O2 , current smoker, AAA (5.4cm), hyperlipidemia, back pain, with poor follow up with medical care. Who presented to [facility] with CC of dyspnea, lower extremity edema, and chest discomfort. During ED work up, significant lab abnormalities were noted and in conjunction with his SOB he was admitted to ICU. ADMISSION LABS INCLUDE: 01/03/18 2340: Anion Gap 16, Estimated GFR 43 L, Glucose 123 H, Calcium 9.0, Phosphorus 4.9 H, Magnesium 2.3, Total Bilirubin 2.7 H, AST 715 H, ALT 2053 H, Troponin I 0.11 *H, Albumin 3.6, CBC w Diff NO MAN DIFF REQ, RBC 5.15, MCV 90.4, MCH 29.5, MCHC 32.6 L, RDW 17.2 H, MPV 9.6, Gran % 91.8 H, Lymphocytes % 5.0 L, Monocytes % 2.9, Eosinophils % 0, Basophils % 0.3, Absolute Granulocytes 12.9 H , Absolute Lymphocytes 0.7 L, Absolute Monocytes 0.4, Absolute Eosinophils 0, Absolute Basophils 0 Lactic Acid 3.5 H - He is currently being treated evaluate for following conditions: * Worsening dyspnea * Cor pulmonale, right-sided heart failure due to COPD * Transaminitis likely secondary to liver congestion * Thrombocytopenia, elevated PTT/INR and low fibrinogen likely 2/2 congestive coagulopathy * VERA due to cardiorenal? worsened by lasix, IV contrast (RICHARD) * Elevated troponin multifactorial * Lactic acidosis hypoperfusion versus liver dysfunction * Leukocytosis * Critical * HFrEF * Large infrarenal AAA Respiratory Dyspnea: Patient has history of COPD with 50 pack years of smoking, he presented with Worsening dyspnea for the past 4 days and increasing lower [place] [id number]. CTA negative for PE * Oxygen supplementation to maintain oxygen saturation above 90% * TRC/nebulization treatment * Sputum showing Hemophilus not yet speciated to parainflu or influ. He got one dose of Ceftriaxone today. * Holding off steroids at this time as it does not seem that pt is in acute exacerbation. Infection Leukocytosis; sepsis unlikely Presented with a WBC count of 16 can be reactive. NO bands. There is no obvious source of infection. All bcx and ucx NGTD from admission. Patient is afebrile and hemodynamically stable. He does have lactic acidosis but that can be explained by other etiologies as well * Continue to monitor fever and WBC curve, elevated white count * Sputum culture positive for Haemophilus spp. * Ceftriaxone 1 g started on 01/05/2018 Cardiology CAD: Echocardiogram w/ significant hypokinesis suggestive of recent vs older myocardial infarction. Patient will need eventual catheterization but in setting of acute illness, coagulopathy, and large AAA pt likely not a candidate for stenting. * Will require cath in near future Infrarenal abdominal aortic aneurysm Patient has refused surgery in the past and the aneurysm has increased in size from 5.2-5.4 cm. Vascular surgery has been consulted no acute intervention at this time. Can be a possible cause of consumption coagulopathy. * He will need to follow up w/ vasc surgery after acute illness Elveated Troponis Possible etiology can be right-sided heart failure, acute renal failure, pulmonary hypertension * Troponin peaked at 0.14 on 01/15 Hematology Thrombocytopenia, Low Fibrinogen: Fibrinogen was 89 on day of admission. Adam plt at 55, today at 86. Etiologies considered includes congestive coagulopathy secondary to passive hepatic congestion, consumption coagulopathy, AAA, DIC, TTP (sepsis, malignancy) and PE. Most likely patient has congestive cardiopathy secondary to liver congestion in setting of right heart failure. PE has been ruled out, patient does not appear to be in sepsis hemodynamically stable, no source of infection, there were no schistocytes present on the smear. His H&H is stable * S/p one bag of cryoprecipitate on 01/05 * No plt or FFP transfused * Vit K oral x1 Metabolic Hyperbilirubinemia and transaminitis improving: Today at AST 410, ALT 1478, TBILI 2.1. Negative RUQ US. Most likely secondary to liver congestion * Continue to monitor * Hepatitis panel, HIV negative VERA: Possible etiologies cardiorenal syndrome, worsened with lasix and IV contrast * Today Cr 1.5 * Encourage oral intake * Avoid nephrotoxins Diet Heart healthy diet DVT PPX ALPS only in Setting of Thrombocytopenia Allergies: Coded Allergies: No Known Allergies (04/27/16) Pertinent Lab Results: Laboratory Tests 01/05 01/05 01/05 1500 1415 0844 Chemistry Sodium Pending Potassium Pending Chloride Pending Carbon Dioxide Pending Anion Gap Pending BUN Pending Creatinine Pending Glucose Pending Lactic Acid Pending Cancelled Calcium Pending Phosphorus Pending Magnesium Pending Total Bilirubin Pending AST Pending ALT Pending Albumin Pending Coagulation PT Pending INR Pending APTT Pending Fibrinogen Activity Pending D-Dimer High Sensitivty Pending Hematology CBC w Diff NO MAN DIFF REQ WBC (4.8 - 10.8 /CUMM) 17.4 H RBC (4.70 - 6.10 /CUMM) 4.93 Hgb (14.0 - 18.0 G/DL) 14.1 Hct (42 - 52 %) 44.6 MCV (80.0 - 94.0 FL) 90.5 MCH (27.0 - 31.0 PG) 28.7 MCHC (33.0 - 37.0 G/DL) 31.7 L RDW (11.5 - 14.5 %) 17.1 H Plt Count (130 - 400 /CUMM) 86 L MPV (7.4 - 10.4 FL) 9.9 Gran % (42.2 - 75.2 %) 94.6 H Lymphocytes % (20.5 - 51.1 %) 2.2 L Monocytes % (1.7 - 9.3 %) 3.0 Eosinophils % (0 - 5 %) 0 Basophils % (0.0 - 2.0 %) 0.2 Absolute Granulocytes (1.4 - 6.5 /CUMM) 16.4 H Absolute Lymphocytes (1.2 - 3.4 /CUMM) 0.4 L Absolute Monocytes (0.10 - 0.60 /CUMM) 0.5 Absolute Eosinophils (0.0 - 0.7 /CUMM) 0 Absolute Basophils (0.0 - 0.2 /CUMM) 0 01/05 01/05 01/05 0800 0415 3738 Chemistry Sodium (137 - 145 mmol/L) 136 L Potassium (3.5 - 5.1 mmol/L) 4.0 Chloride (98 - 107 mmol/L) 96 L Carbon Dioxide (22 - 30 mmol/L) 28 Anion Gap (5 - 16) 11 BUN (9 - 20 mg/dL) 56 H Creatinine (0.7 - 1.2 mg/dL) 1.5 H Estimated GFR (>60 ml/min) 46 L Glucose (65 - 99 mg/dL) 116 H Lactic Acid (0.7 - 2.1 mmol/L) Cancelled 2.2 H Calcium (8.4 - 10.2 mg/dL) 8.6 Phosphorus (2.5 - 4.5 mg/dL) 3.8 Magnesium (1.6 - 2.3 mg/dL) 2.5 H Total Bilirubin (0.2 - 1.3 mg/dL) 2.1 H AST (17 - 59 U/L) 410 H ALT (21 - 72 U/L) 1478 H Albumin (3.5 - 5.0 g/dL) 3.3 L Coagulation PT (9.4 - 12.5 SEC) 24.4 H INR (0.90 - 1.17) 2.22 H APTT (25 - 37 SEC) 27 Fibrinogen Activity (200 - 393 MG/DL) 101 L D-Dimer High Sensitivty (0 - 243 ng/ml) 2595 H Hematology CBC w Diff MAN DIFF ORDERED WBC (4.8 - 10.8 /CUMM) 19.3 H RBC (4.70 - 6.10 /CUMM) 4.77 Hgb (14.0 - 18.0 G/DL) 14.0 Hct (42 - 52 %) 43.0 MCV (80.0 - 94.0 FL) 90.1 MCH (27.0 - 31.0 PG) 29.4 MCHC (33.0 - 37.0 G/DL) 32.6 L RDW (11.5 - 14.5 %) 17.1 H Plt Count (130 - 400 /CUMM) 55 L MPV (7.4 - 10.4 FL) 9.3 Gran % (42.2 - 75.2 %) 94.1 H Lymphocytes % (20.5 - 51.1 %) 2.2 L Monocytes % (1.7 - 9.3 %) 3.6 Eosinophils % (0 - 5 %) 0 Basophils % (0.0 - 2.0 %) 0.1 Absolute Granulocytes (1.4 - 6.5 /CUMM) 18.2 H Segmented Neutrophils (42.2 - 75.2 %) 90 H Absolute Lymphocytes (1.2 - 3.4 /CUMM) 0.4 L Lymphocytes (20.5 - 51.1 %) 5 L Monocytes (1.7 - 9.3 %) 5 Absolute Monocytes (0.10 - 0.60 /CUMM) 0.7 H Absolute Eosinophils (0.0 - 0.7 /CUMM) 0 Absolute Basophils (0.0 - 0.2 /CUMM) 0 Nucleated RBCs (0.0 - 0.0 /100WBC) 1 H Platelet Estimate (ADEQUATE) DECREASED Polychromasia 1+ Poikilocytosis 1+ Ovalocytes 1+ Other Body Source Fld Total RBCs Counted (%) 100 01/05 01/04 01/04 0015 2100 1700 Chemistry Lactic Acid (0.7 - 2.1 mmol/L) 3.2 H 4.0 H Hematology CBC w Diff Cancelled WBC Cancelled RBC Cancelled Hgb Cancelled Hct Cancelled MCV Cancelled MCH Cancelled MCHC Cancelled RDW Cancelled Plt Count Cancelled MPV Cancelled 01/04 1610 Chemistry Sodium (137 - 145 mmol/L) 137 Potassium (3.5 - 5.1 mmol/L) 4.3 Chloride (98 - 107 mmol/L) 95 L Carbon Dioxide (22 - 30 mmol/L) 27 Anion Gap (5 - 16) 15 BUN (9 - 20 mg/dL) 58 H Creatinine (0.7 - 1.2 mg/dL) 1.9 H Estimated GFR (>60 ml/min) 35 L Glucose (65 - 99 mg/dL) 113 H Lactic Acid (0.7 - 2.1 mmol/L) 3.7 H Calcium (8.4 - 10.2 mg/dL) 8.6 Phosphorus (2.5 - 4.5 mg/dL) 4.2 Magnesium (1.6 - 2.3 mg/dL) 2.4 H Total Bilirubin (0.2 - 1.3 mg/dL) 2.5 H AST (17 - 59 U/L) 539 H ALT (21 - 72 U/L) 1691 H Albumin (3.5 - 5.0 g/dL) 3.5 Coagulation PT (9.4 - 12.5 SEC) 26.3 H INR (0.90 - 1.17) 2.39 H APTT (25 - 37 SEC) 30 Fibrinogen Activity (200 - 393 MG/DL) 114 L Hematology CBC w Diff NO MAN DIFF REQ WBC (4.8 - 10.8 /CUMM) 16.8 H RBC (4.70 - 6.10 /CUMM) 4.90 Hgb (14.0 - 18.0 G/DL) 14.4 Hct (42 - 52 %) 44.4 MCV (80.0 - 94.0 FL) 90.6 MCH (27.0 - 31.0 PG) 29.5 MCHC (33.0 - 37.0 G/DL) 32.5 L RDW (11.5 - 14.5 %) 17.2 H Plt Count (130 - 400 /CUMM) 61 L MPV (7.4 - 10.4 FL) 9.8 Gran % (42.2 - 75.2 %) 93.6 H Lymphocytes % (20.5 - 51.1 %) 1.9 L Monocytes % (1.7 - 9.3 %) 4.5 Eosinophils % (0 - 5 %) 0 Basophils % (0.0 - 2.0 %) 0 Absolute Granulocytes (1.4 - 6.5 /CUMM) 15.7 H Absolute Lymphocytes (1.2 - 3.4 /CUMM) 0.3 L Absolute Monocytes (0.10 - 0.60 /CUMM) 0.7 H Absolute Eosinophils (0.0 - 0.7 /CUMM) 0 Absolute Basophils (0.0 - 0.2 /CUMM) 0 Laboratory Tests 01/05 01/05 01/05 1500 1415 0844 Chemistry Sodium Pending Potassium Pending Chloride Pending Carbon Dioxide Pending Anion Gap Pending BUN Pending Creatinine Pending Glucose Pending Lactic Acid Pending Cancelled Calcium Pending Phosphorus Pending Magnesium Pending Total Bilirubin Pending AST Pending ALT Pending Albumin Pending Coagulation PT Pending INR Pending APTT Pending Fibrinogen Activity Pending D-Dimer High Sensitivty Pending Hematology CBC w Diff NO MAN DIFF REQ WBC (4.8 - 10.8 /CUMM) 17.4 H RBC (4.70 - 6.10 /CUMM) 4.93 Hgb (14.0 - 18.0 G/DL) 14.1 Hct (42 - 52 %) 44.6 MCV (80.0 - 94.0 FL) 90.5 MCH (27.0 - 31.0 PG) 28.7 MCHC (33.0 - 37.0 G/DL) 31.7 L RDW (11.5 - 14.5 %) 17.1 H Plt Count (130 - 400 /CUMM) 86 L MPV (7.4 - 10.4 FL) 9.9 Gran % (42.2 - 75.2 %) 94.6 H Lymphocytes % (20.5 - 51.1 %) 2.2 L Monocytes % (1.7 - 9.3 %) 3.0 Eosinophils % (0 - 5 %) 0 Basophils % (0.0 - 2.0 %) 0.2 Absolute Granulocytes (1.4 - 6.5 /CUMM) 16.4 H Absolute Lymphocytes (1.2 - 3.4 /CUMM) 0.4 L Absolute Monocytes (0.10 - 0.60 /CUMM) 0.5 Absolute Eosinophils (0.0 - 0.7 /CUMM) 0 Absolute Basophils (0.0 - 0.2 /CUMM) 0 /08 01/05 01/05 0800 0415 9545 Chemistry Sodium (137 - 145 mmol/L) 136 L Potassium (3.5 - 5.1 mmol/L) 4.0 Chloride (98 - 107 mmol/L) 96 L Carbon Dioxide (22 - 30 mmol/L) 28 Anion Gap (5 - 16) 11 BUN (9 - 20 mg/dL) 56 H Creatinine (0.7 - 1.2 mg/dL) 1.5 H Estimated GFR (>60 ml/min) 46 L Glucose (65 - 99 mg/dL) 116 H Lactic Acid (0.7 - 2.1 mmol/L) Cancelled 2.2 H Calcium (8.4 - 10.2 mg/dL) 8.6 Phosphorus (2.5 - 4.5 mg/dL) 3.8 Magnesium (1.6 - 2.3 mg/dL) 2.5 H Total Bilirubin (0.2 - 1.3 mg/dL) 2.1 H AST (17 - 59 U/L) 410 H ALT (21 - 72 U/L) 1478 H Albumin (3.5 - 5.0 g/dL) 3.3 L Coagulation PT (9.4 - 12.5 SEC) 24.4 H INR (0.90 - 1.17) 2.22 H APTT (25 - 37 SEC) 27 Fibrinogen Activity (200 - 393 MG/DL) 101 L D-Dimer High Sensitivty (0 - 243 ng/ml) 2595 H Hematology CBC w Diff MAN DIFF ORDERED WBC (4.8 - 10.8 /CUMM) 19.3 H RBC (4.70 - 6.10 /CUMM) 4.77 Hgb (14.0 - 18.0 G/DL) 14.0 Hct (42 - 52 %) 43.0 MCV (80.0 - 94.0 FL) 90.1 MCH (27.0 - 31.0 PG) 29.4 MCHC (33.0 - 37.0 G/DL) 32.6 L RDW (11.5 - 14.5 %) 17.1 H Plt Count (130 - 400 /CUMM) 55 L MPV (7.4 - 10.4 FL) 9.3 Gran % (42.2 - 75.2 %) 94.1 H Lymphocytes % (20.5 - 51.1 %) 2.2 L Monocytes % (1.7 - 9.3 %) 3.6 Eosinophils % (0 - 5 %) 0 Basophils % (0.0 - 2.0 %) 0.1 Absolute Granulocytes (1.4 - 6.5 /CUMM) 18.2 H Segmented Neutrophils (42.2 - 75.2 %) 90 H Absolute Lymphocytes (1.2 - 3.4 /CUMM) 0.4 L Lymphocytes (20.5 - 51.1 %) 5 L Monocytes (1.7 - 9.3 %) 5 Absolute Monocytes (0.10 - 0.60 /CUMM) 0.7 H Absolute Eosinophils (0.0 - 0.7 /CUMM) 0 Absolute Basophils (0.0 - 0.2 /CUMM) 0 Nucleated RBCs (0.0 - 0.0 /100WBC) 1 H Platelet Estimate (ADEQUATE) DECREASED Polychromasia 1+ Poikilocytosis 1+ Ovalocytes 1+ Other Body Source Fld Total RBCs Counted (%) 100 01/05 01/04 01/04 0015 2100 1700 Chemistry Lactic Acid (0.7 - 2.1 mmol/L) 3.2 H 4.0 H Hematology CBC w Diff Cancelled WBC Cancelled RBC Cancelled Hgb Cancelled Hct Cancelled MCV Cancelled MCH Cancelled MCHC Cancelled RDW Cancelled Plt Count Cancelled MPV Cancelled 01/04 01/04 1610 1500 Chemistry Sodium (137 - 145 mmol/L) 137 Potassium (3.5 - 5.1 mmol/L) 4.3 Chloride (98 - 107 mmol/L) 95 L Carbon Dioxide (22 - 30 mmol/L) 27 Anion Gap (5 - 16) 15 BUN (9 - 20 mg/dL) 58 H Creatinine (0.7 - 1.2 mg/dL) 1.9 H Estimated GFR (>60 ml/min) 35 L Glucose (65 - 99 mg/dL) 113 H Lactic Acid (0.7 - 2.1 mmol/L) 3.7 H Calcium (8.4 - 10.2 mg/dL) 8.6 Phosphorus (2.5 - 4.5 mg/dL) 4.2 Magnesium (1.6 - 2.3 mg/dL) 2.4 H Total Bilirubin (0.2 - 1.3 mg/dL) 2.5 H AST (17 - 59 U/L) 539 H ALT (21 - 72 U/L) 1691 H Albumin (3.5 - 5.0 g/dL) 3.5 Coagulation PT (9.4 - 12.5 SEC) 26.3 H INR (0.90 - 1.17) 2.39 H APTT (25 - 37 SEC) 30 Fibrinogen Activity (200 - 393 MG/DL) 114 L Hematology CBC w Diff NO MAN DIFF REQ WBC (4.8 - 10.8 /CUMM) 16.8 H RBC (4.70 - 6.10 /CUMM) 4.90 Hgb (14.0 - 18.0 G/DL) 14.4 Hct (42 - 52 %) 44.4 MCV (80.0 - 94.0 FL) 90.6 MCH (27.0 - 31.0 PG) 29.5 MCHC (33.0 - 37.0 G/DL) 32.5 L RDW (11.5 - 14.5 %) 17.2 H Plt Count (130 - 400 /CUMM) 61 L MPV (7.4 - 10.4 FL) 9.8 Gran % (42.2 - 75.2 %) 93.6 H Lymphocytes % (20.5 - 51.1 %) 1.9 L Monocytes % (1.7 - 9.3 %) 4.5 Eosinophils % (0 - 5 %) 0 Basophils % (0.0 - 2.0 %) 0 Absolute Granulocytes (1.4 - 6.5 /CUMM) 15.7 H Absolute Lymphocytes (1.2 - 3.4 /CUMM) 0.3 L Absolute Monocytes (0.10 - 0.60 /CUMM) 0.7 H Absolute Eosinophils (0.0 - 0.7 /CUMM) 0 Absolute Basophils (0.0 - 0.2 /CUMM) 0 Urines Urinalysis LIGHT H Urine Color (YEL,AMB,STR) YEL Urine Clarity (CLEAR) CLEAR Urine pH (5.0 - 8.0) 5.5 Ur Specific [place] (1.001 - 1.035) 1.010 Urine Protein (NEG,<30 MG/DL) TRACE H Urine Ketones (NEG) NEG Urine Nitrite (NEG) NEG Urine Bilirubin (NEG) NEG Urine Urobilinogen (0.1 - 1.0 EU/dl) 0.2 Ur Leukocyte Esterase (NEG) NEG Ur Microscopic SEDIMENT EXAMINED Urine RBC (0 - 5 /HPF) RARE Urine WBC (0 - 2 /HPF) RARE Ur Epithelial Cells (NONE,FEW) MOD H Hyaline Casts (0/LPF) 1-3 H Granular Casts (NONE /LPF) 3-5 H Urine Mucus (FEW,NONE) FEW Urine Hemoglobin (NEG) SMALL H Urine Glucose (N MG/DL) NEG 01/04 01/04 01/04 1500 1230 0800 Chemistry Lactic Acid (0.7 - 2.1 mmol/L) 3.2 H 2.2 H Troponin I (<0.11 ng/ml) 0.12 *H Urines Ur Random Creatinine (mg/dL) 23.9 Ur Random Sodium (30 - 90 mmol/L) 57 Ur Random Potassium (mmol/L) 35.4 Fraction Sodium Excret (<1% %) 3.2 H 01/04 01/04 01/04 0530 0340 0200 Chemistry Sodium (137 - 145 mmol/L) 136 L Potassium (3.5 - 5.1 mmol/L) 4.3 Chloride (98 - 107 mmol/L) 96 L Carbon Dioxide (22 - 30 mmol/L) 26 Anion Gap (5 - 16) 13 BUN (9 - 20 mg/dL) 57 H Creatinine (0.7 - 1.2 mg/dL) 1.8 H Estimated GFR (>60 ml/min) 37 L Glucose (65 - 99 mg/dL) 112 H Lactic Acid (0.7 - 2.1 mmol/L) 3.1 H Cancelled Calcium (8.4 - 10.2 mg/dL) 9.1 Phosphorus (2.5 - 4.5 mg/dL) 5.0 H Magnesium (1.6 - 2.3 mg/dL) 2.4 H Total Bilirubin (0.2 - 1.3 mg/dL) 2.2 H AST (17 - 59 U/L) 637 H ALT (21 - 72 U/L) 1966 H Alkaline Phosphatase (< 127 U/L) 240 H Troponin I (<0.11 ng/ml) 0.14 *H Albumin (3.5 - 5.0 g/dL) 3.5 Total PSA (0.00 - 4.00 ng/mL) 1.59 Coagulation PT (9.4 - 12.5 SEC) 28.6 H INR (0.90 - 1.17) 2.60 H APTT (25 - 37 SEC) 32 Fibrinogen Activity (200 - 393 MG/DL) 89 L D-Dimer High Sensitivty (0 - 243 ng/ml) 1882 H Hematology CBC w Diff MAN DIFF ORDERED WBC (4.8 - 10.8 /CUMM) 11.6 H RBC (4.70 - 6.10 /CUMM) 5.12 Hgb (14.0 - 18.0 G/DL) 15.1 Hct (42 - 52 %) 46.2 MCV (80.0 - 94.0 FL) 90.2 MCH (27.0 - 31.0 PG) 29.4 MCHC (33.0 - 37.0 G/DL) 32.6 L RDW (11.5 - 14.5 %) 16.6 H Plt Count (130 - 400 /CUMM) 58 L MPV (7.4 - 10.4 FL) 9.3 Gran % (42.2 - 75.2 %) 93.0 H Lymphocytes % (20.5 - 51.1 %) 4.4 L Monocytes % (1.7 - 9.3 %) 2.5 Eosinophils % (0 - 5 %) 0 Basophils % (0.0 - 2.0 %) 0.1 Absolute Granulocytes (1.4 - 6.5 /CUMM) 10.8 H Segmented Neutrophils (42.2 - 75.2 %) 94 H Absolute Lymphocytes (1.2 - 3.4 /CUMM) 0.5 L Lymphocytes (20.5 - 51.1 %) 1 L Monocytes (1.7 - 9.3 %) 5 Absolute Monocytes (0.10 - 0.60 /CUMM) 0.3 Absolute Eosinophils (0.0 - 0.7 /CUMM) 0 Absolute Basophils (0.0 - 0.2 /CUMM) 0 Nucleated RBCs (0.0 - 0.0 /100WBC) 2 H Platelet Estimate (ADEQUATE) VERIFIED BY SMEAR Polychromasia 1+ Anisocytosis 1+ Macrocytic Cells FEW Target Cells RARE [place] Cells FEW Elliptocytes FEW Serology Hepatitis A IgM Ab (NONREACTIVE) NONREACTIVE Hep Bs Antigen (NONREACTIVE) NONREACTIVE Hep B Core IgM Ab Conf (NONREACTIVE) NONREACTIVE Hepatitis C Antibody (NONREACTIVE) NONREACTIVE HIV 1&2 Ab Western Blot (NONREACTIVE) NONREACTIVE 01/03 01/03 2340 2240 Chemistry Sodium (137 - 145 mmol/L) 135 L Potassium (3.5 - 5.1 mmol/L) 4.4 Chloride (98 - 107 mmol/L) 95 L Carbon Dioxide (22 - 30 mmol/L) 24 Anion Gap (5 - 16) 16 BUN (9 - 20 mg/dL) 58 H Creatinine (0.7 - 1.2 mg/dL) 1.6 H Estimated GFR (>60 ml/min) 43 L Glucose (65 - 99 mg/dL) 123 H Lactic Acid (0.7 - 2.1 mmol/L) 3.5 H Calcium (8.4 - 10.2 mg/dL) 9.0 Phosphorus (2.5 - 4.5 mg/dL) 4.9 H Magnesium (1.6 - 2.3 mg/dL) 2.3 Total Bilirubin (0.2 - 1.3 mg/dL) 2.7 H AST (17 - 59 U/L) 715 H ALT (21 - 72 U/L) 2053 H Troponin I (<0.11 ng/ml) 0.11 *H Albumin (3.5 - 5.0 g/dL) 3.6 Hematology CBC w Diff NO MAN DIFF REQ WBC (4.8 - 10.8 /CUMM) 14.0 H RBC (4.70 - 6.10 /CUMM) 5.15 Hgb (14.0 - 18.0 G/DL) 15.2 Hct (42 - 52 %) 46.5 MCV (80.0 - 94.0 FL) 90.4 MCH (27.0 - 31.0 PG) 29.5 MCHC (33.0 - 37.0 G/DL) 32.6 L RDW (11.5 - 14.5 %) 17.2 H Plt Count (130 - 400 /CUMM) 76 L MPV (7.4 - 10.4 FL) 9.6 Gran % (42.2 - 75.2 %) 91.8 H Lymphocytes % (20.5 - 51.1 %) 5.0 L Monocytes % (1.7 - 9.3 %) 2.9 Eosinophils % (0 - 5 %) 0 Basophils % (0.0 - 2.0 %) 0.3 Absolute Granulocytes (1.4 - 6.5 /CUMM) 12.9 H Absolute Lymphocytes (1.2 - 3.4 /CUMM) 0.7 L Absolute Monocytes (0.10 - 0.60 /CUMM) 0.4 Absolute Eosinophils (0.0 - 0.7 /CUMM) 0 Absolute Basophils (0.0 - 0.2 /CUMM) 0 03/06 1730 Chemistry Sodium (137 - 145 mmol/L) 133 L Potassium (3.5 - 5.1 mmol/L) 5.1 Chloride (98 - 107 mmol/L) 96 L Carbon Dioxide (22 - 30 mmol/L) 24 Anion Gap (5 - 16) 13 BUN (9 - 20 mg/dL) 59 H Creatinine (0.7 - 1.2 mg/dL) 1.6 H Estimated GFR (>60 ml/min) 43 L BUN/Creatinine Ratio (7 - 25 %) 36.9 H Glucose (65 - 99 mg/dL) 109 H Lactic Acid (0.7 - 2.1 mmol/L) 4.0 H Calcium (8.4 - 10.2 mg/dL) 9.2 Total Bilirubin (0.2 - 1.3 mg/dL) 2.5 H AST (17 - 59 U/L) 717 H ALT (21 - 72 U/L) 2269 H Alkaline Phosphatase (< 127 U/L) 252 H Troponin I (<0.11 ng/ml) 0.13 *H Thk-N-Eglyxdgosta Pept (<125 pg/mL) 55035 H Total Protein (6.3 - 8.2 g/dL) 6.9 Albumin (3.5 - 5.0 g/dL) 3.8 Globulin (1.9 - 4.2 gm/dL) 3.1 Albumin/Globulin Ratio (1.1 - 2.2 %) 1.2 Amylase (30 - 110 U/L) 35 Lipase (23 - 300 U/L) 139 Coagulation PT (9.4 - 12.5 SEC) 32.1 H INR (0.90 - 1.17) 2.91 H APTT (25 - 37 SEC) 31 D-Dimer High Sensitivty (0 - 243 ng/ml) 1850 H Hematology CBC w Diff NO MAN DIFF REQ WBC (4.8 - 10.8 /CUMM) 16.4 H RBC (4.70 - 6.10 /CUMM) 5.28 Hgb (14.0 - 18.0 G/DL) 15.7 Hct (42 - 52 %) 47.6 MCV (80.0 - 94.0 FL) 90.3 MCH (27.0 - 31.0 PG) 29.7 MCHC (33.0 - 37.0 G/DL) 32.9 L RDW (11.5 - 14.5 %) 16.9 H Plt Count (130 - 400 /CUMM) 76 L MPV (7.4 - 10.4 FL) 9.5 Gran % (42.2 - 75.2 %) 87.5 H Lymphocytes % (20.5 - 51.1 %) 5.7 L Monocytes % (1.7 - 9.3 %) 6.7 Eosinophils % (0 - 5 %) 0 Basophils % (0.0 - 2.0 %) 0.1 Absolute Granulocytes (1.4 - 6.5 /CUMM) 14.3 H Absolute Lymphocytes (1.2 - 3.4 /CUMM) 0.9 L Absolute Monocytes (0.10 - 0.60 /CUMM) 1.1 H Absolute Eosinophils (0.0 - 0.7 /CUMM) 0 Absolute Basophils (0.0 - 0.2 /CUMM) 0 Microbiology 01/04 1500 URINE ROUT: Legionella Antigen - COMP 01/04 1500 URINE ROUT: Streptococcus pneumoniae Antigen (M - COMP 01/04 1315 LOWER RESP: Respiratory Culture - RES GRAM NEGATIVE RODS HEMOPHILUS SPECIES 01/04 1315 LOWER RESP: Gram Stain - RES 01/04 1230 URINE ROUT: Urine Culture - RES 01/04 0240 UPPER RESP: Surveillance Culture - COMP 01/04 0240 GI: Surveillance Culture - COMP 01/03 2250 BLOOD: Blood Culture - RES 01/03 2240 BLOOD: Blood Culture - RES Vital Signs Result Date Time Pulse Ox 92 01/05 1441 O2 Delivery Room Air 01/05 1441 B/P 94/60 01/05 1248 Temp 97.9 / 1200 Pulse 82 /08 1200 Resp 30 01/05 1200 O2 Flow Rate 2.0L 01/05 0800 Intake & Output 01/05 0000 01/04 1600 01/04 0800 Intake Total 240 965 Output Total 525 1475 350 Balance -285 -510 -350 Intake, IV 125 Intake, Oral 240 840 Number 0 Bowel Movements Output, Dialysate Output, Urine 525 1475 350 Patient 72.121 kg 71.719 kg Weight Weight Bed scale Bed scale Measurement Method PATIENT: GASTONKWABENA JR PRESENT AGE: 72 PATIENT ACCOUNT NO: [id number] : 45 LOCATION: [facility] ORDERING PHYSICIAN: Maricruz Lam MD SERVICE DATE: 01/04/18 EXAM TYPE: CARD - ECHO (COMPLETE) W/CONTRAST KWABENA FELDMAN Age: 72 : 1945 Gender: M Exam Date: 01/04/2018 09:26 Exam Location: [facility] Ht (in): 72 Wt (lb): 158 BSA: 1.90 BP: 110 / 90 Ordering Physician: Maricruz Lam, Referring Physician: Maricruz Lam, Technologist: Bg Manriquez [facility] Room Number: [id number] Indications: Heart failure, unspecified Rhythm: Sinus Technical Quality: Fair FINDINGS Left Ventricle Normal size left ventricle. Moderately reduced global left ventricular systolic function. Hypokinetic septum. Abnormal septal motion. Hypokinetic lateral wall. Wynona hypokinetic. Moderately abnormal left ventricular ejection fraction estimated at 25-30%. Right Ventricle Right ventricle not well visualized, grossly normal. Right Atrium Normal right atrial size. Left Atrium Mild to moderate left atrial dilatation. Mitral Valve Mitral valve thickened. [id number] mitral regurgitation. Aortic Valve Trileaflet aortic valve. Diffuse thickening of the aortic valve cusps with reduced excursion. Severe aortic stenosis. Mild aortic regurgitation. Tricuspid Valve Tricuspid valve not well visualized, grossly normal. Mild tricuspid regurgitation. Right ventricular systolic pressure estimated at 46 mmHg. Pulmonic Valve Pulmonic valve not well visualized, grossly normal. Mild pulmonic regurgitation. Pericardium No pericardial effusion. Great Vessels Aortic root and proximal ascending aorta not well visualized, grossly normal. CONCLUSIONS 1. 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 Peak gradient is 42 mmHg with a mean gradient 20 mmHg and an estimated valve area of 0.6 cm. Mild aortic insufficiency is also present. 2. Mitral leaflet thickening is present with moderate annular calcification and mild to moderate mitral insufficiency with mild to moderate left atrial enlargement. 3. No significant pericardial fluid is detected on the study. 4. The left ventricular chamber size is normal. There is global hypokinesia present which is much more prominent in the mid to distal septum, anterolateral and apical segments. Ejection fraction is approximately 25-30%. There is an ill-defined echodensity present in the distal inferoapical region which may represent a small laminar thrombus. Additional images were obtained following the administration of IV contrast. Diastolic dysfunction is also noted. 5. Mild tricuspid and pulmonic insufficiency are present. Mild pulmonary hypertension is present with a right ventricular systolic pressure 46 mmHg. 6. No prior study was available for comparison. Nupur Hernandez M.D. (Electronically Signed) Final Date: 04 January 2018 13:25 MEASUREMENTS (Male / Female) Normal Values 2D ECHO LV Diastolic Diameter PLAX 4.9 cm 4.2 - 5.9 / 3.9 - 5.3 cm LV Systolic Diameter PLAX 4.0 cm 2.1 - 4.0 cm LV Fractional Shortening PLAX 18.4 % 25 - 46 % LV Ejection Fraction 2D Teich 38.0 % IVS Diastolic Thickness 1.1 cm LVPW Diastolic Thickness 1.1 cm LV Relative Wall Thickness 0.4 LVOT Diameter 1.9 cm Aortic Root Diameter 3.5 cm LA Systolic Diameter LX 3.4 cm 3.0 - 4.0 / 2.7 - 3.8 cm LA Volume 65.0 cm 18 - 58 / 22 - 52 cm DOPPLER AV Peak Velocity 325.0 cm/s AV Peak Gradient 42.3 mmHg AV Mean Velocity 190.0 cm/s AV Mean Gradient 19.0 mmHg AV Velocity Time Integral 57.3 cm AI Deceleration Nicholas 212.0 cm/s AI Peak Velocity 329.0 cm/s AI Pressure Half Time 454.0 ms AI Peak Gradient 43.3 mmHg LVOT Peak Velocity 59.4 cm/s LVOT Peak Gradient 1.4 mmHg LVOT Mean Velocity 35.3 cm/s LVOT Mean Gradient 1.0 mmHg LVOT Velocity Time Integral 12.0 cm LVOT Stroke Volume 34.0 cm AV Area Cont Eq vti 0.6 cm AV Area Cont Eq pk 0.5 cm MV Peak Velocity 109.0 cm/s MV Peak Gradient 4.8 mmHg MV Mean Velocity 70.7 cm/s MV Mean Gradient 2.0 mmHg Mitral E Point Velocity 94.8 cm/s Mitral A Point Velocity 60.2 cm/s Mitral E to A Ratio 1.6 MV PHT Velocity 110.0 cm/s MV Deceleration Nicholas 405.0 cm/s MV Pressure Half Time 81.5 ms MV Area PHT 2.7 cm MV Deceleration Time 162.0 ms TR Peak Velocity 318.0 cm/s TR Peak Gradient 40.4 mmHg Right Atrial Pressure 10.0 mmHg Pulmonary Artery Systolic Pressu 50.4 mmHg Right Ventricular Systolic Press 50.4 mmHg PV Peak Velocity 62.0 cm/s PV Peak Gradient 1.5 mmHg PV Mean Velocity 36.9 cm/s PV Mean Gradient 1.0 mmHg PV Velocity Time Integral 6.9 cm LV E' Lateral Velocity 4.3 cm/s Mitral E to LV E' Lateral Ratio 22.1 LV E' Septal Velocity 3.4 cm/s Mitral E to LV E' Septal Ratio 27.8 DICTATED BY: Rajan Hernandez MD DATE/TIME DICTATED:01/04/181324 TOOL DRAWING CHECKER:DUSTY DATE/TIME TRANSCRIBED:01/04/181324 CONFIDENTIAL, DO NOT COPY WITHOUT APPROPRIATE AUTHORIZATION. <Electronically signed in Other Vendor System> SIGNED BY: Rajan Hernandez MD 01/04/181324 PATIENT: KWABENA FELDMAN JR PRESENT AGE: 72 PATIENT ACCOUNT NO: [id number] : 45 LOCATION: [facility] ORDERING PHYSICIAN: Lorena Mi MD SERVICE DATE: 01/04/18- EXAM TYPE: US - US-RENAL/KIDNEY EXAMINATION: US RETROPERITONEAL COMPLETE (RENAL) CLINICAL INFORMATION: Acute kidney insufficiency. Worsening creatinine. COMPARISON: CT scan of the abdomen and pelvis 01/03/2018. TECHNIQUE: Real-time imaging of the kidneys and bladder. FINDINGS: RIGHT KIDNEY: 11.1 x 4.5 x 4.5 cm (SAG x AP x TRV). The kidney is normal in size, contour, and echogenicity. Renal cortical thickness is normal. No calculi or focal parenchymal lesions. No hydronephrosis. LEFT KIDNEY: 10.1 x 4.8 x 4.0 cm (SAG x AP x TRV). The lower pole is not well visualized on the current study. The kidney is normal in size, contour, and echogenicity. Renal cortical thickness is normal. No calculi or focal parenchymal lesions. No hydronephrosis. BLADDER: Well-distended and normal. Bilateral ureteral jets are demonstrated. OTHER: An aneurysm of the abdominal aorta is redemonstrated at the mid/distal aorta, more fully evaluated on the CT scan of the abdomen and pelvis. IMPRESSION: 1. The kidneys appear normal bilaterally. There is no hydronephrosis. There are no echogenic renal calculi. 2. The study redemonstrates the infrarenal abdominal aortic aneurysm. DICTATED BY: Rafi Merrill MD DATE/TIME DICTATED:01/04/181518 TOOL DRAWING CHECKER:DUSTY DATE/TIME TRANSCRIBED:01/04/181518 CONFIDENTIAL, DO NOT COPY WITHOUT APPROPRIATE AUTHORIZATION. <Electronically signed in Other Vendor System> SIGNED BY: Rafi Merrill MD 01/04/18 1526 PATIENT: KWABENA FELDMAN JR PRESENT AGE: 72 PATIENT ACCOUNT NO: [id number] : 45 LOCATION: [facility] ORDERING PHYSICIAN: Jerry YANG SERVICE DATE: 01/03/18 EXAM TYPE: US - US-LIMITED ABDOMEN EXAMINATION: US ABDOMEN LIMITED CLINICAL INFORMATION: Elevated LFT, bilirubin. COMPARISON: CT of the abdomen and pelvis from the same day. TECHNIQUE: Real-time imaging of the right upper quadrant abdominal viscera. Per technologist note, the exam was limited due to overlying bowel gas and difficulty with breath-holding. FINDINGS: PANCREAS: The pancreas is largely obscured by overlying bowel gas. LIVER: The small cyst seen on CT are not sonographically visualized. No discrete hepatic lesion. Some of the documented images suggest slightly increased echogenicity within the liver. No intrahepatic ductal dilatation is visualized. GALLBLADDER: Normal. The gallbladder is physiologically distended without evidence of stones, sludge, polyps, wall thickening or pericholecystic fluid. COMMON BILE DUCT: Normal in caliber measuring 0.6 cm in diameter. RIGHT KIDNEY: Normal. No hydronephrosis. No renal calculi or focal parenchymal lesions. The kidney measures 10.7 cm in maximum dimension. FREE FLUID: None. IMPRESSION: Limited examination without sonographic evidence of acute right upper quadrant abnormality. DICTATED BY: Tree Carey MD DATE/TIME DICTATED:01/03/182117 TOOL DRAWING CHECKER:DUSTY DATE/TIME TRANSCRIBED:01/03/182117 CONFIDENTIAL, DO NOT COPY WITHOUT APPROPRIATE AUTHORIZATION. <Electronically signed in Other Vendor System> SIGNED BY: Tree Carey MD 01/03/182126 PATIENT: KWABENA FELDMAN JR PRESENT AGE: 72 PATIENT ACCOUNT NO: [id number] : 45 LOCATION: [facility] ORDERING PHYSICIAN: Jerry YANG SERVICE DATE: 01/03/18 EXAM TYPE: CAT - CT ABD & PELVIS W IV CONTRAST; CTA CHEST-PULMONARY EMBOLISM EXAMINATION: CT ANGIOGRAM OF THE CHEST WITH CONTRAST (CT PULMONARY ANGIOGRAM FOR PE) CLINICAL INFORMATION: Shortness of breath and elevated D-dimer. COMPARISON: No pertinent prior studies are available for comparison. TECHNIQUE: Prior to contrast administration, noncontrast localization images were obtained. Subsequently, multidetector volumetric imaging was performed from the thoracic inlet to below the diaphragms following the administration of 95 mL Optiray 350 intravenous contrast. No contrast reaction reported. Sagittal, coronal, and MIP oblique sagittal reformatted images were obtained on the CT workstation, uploaded to PACS, and reviewed. DLP: Total exam dose-length product 725 mGy-cm FINDINGS: QUALITY OF STUDY/CONTRAST BOLUS: Satisfactory. PULMONARY ARTERIES: Pulmonary arteries are normal in size. There appears to be thin, nonocclusive filling defect within the lumen of a subsegmental branch in the right upper lobe (image 219, series 2). This could represent a residual web from remote embolism. In addition, there is an area of minimal thickening along the anterior wall of the left interlobar artery as well as along the anterior wall of a subsegmental branch in the left lower lobe. These findings also could be sequela of remote embolism. No convincing evidence for an acute embolic filling defect. THORACIC AORTA: Atherosclerotic calcification of the thoracic aorta. The ascending thoracic aorta is 3.9 cm transverse diameter. The aortic lumen is poorly evaluated due to the timing of the contrast bolus for the pulmonary arteries. LUNGS AND PLEURA: There is linear strand of mucus along the tracheal wall and extending into the right mainstem bronchus and into the bronchus intermedius. Yheijymr-jp-vntueg centrilobular emphysema. Mild thickening of bronchial grossman in both lungs. Lungs have mosaic attenuation, possibly due to combination of the emphysema and mild edema. There is interlobular septal thickening. Also, mild septal thickening is seen in subpleural regions of the lower lung zones. Small left pleural effusion is present. CARDIOVASCULAR: The heart size is normal. Mitral valve annulus is calcified. Calcifications also observed at the level of the aortic valve. Rusp-[id number] atherosclerotic calcification of coronary arteries. No pericardial effusion. No evidence of inward bowing of the interventricular septum. There is contrast reflux into the inferior vena cava and hepatic veins, which can be a manifestation of tricuspid regurgitation and/or elevated right heart pressure. MEDIASTINUM: The esophagus has normal wall thickness. The visualized portion of the thyroid gland is unremarkable. No mediastinal mass. LYMPHATICS: No pathologic sized axillary, hilar or mediastinal lymph nodes. OSSEOUS STRUCTURES: No acute findings within the extensively degenerated spine. No aggressive osseous lesions. IMPRESSION: 1. No acute pulmonary emboli are identified. There are a few findings (as noted above) that are suspicious for sequela of remote embolic disease. 2. Nndnxtzb-fp-dnhsex pulmonary emphysema. 3. Lungs have mosaic attenuation; this appears to be secondary to a combination of pulmonary emphysema and mild interstitial edema. Small left pleural effusion is present. 4. There is contrast reflux into the inferior vena cava and hepatic veins, which can be a manifestation of tricuspid regurgitation and/or elevated right sided cardiac pressures. EXAMINATION: CT ABDOMEN AND PELVIS WITH IV CONTRAST CLINICAL INFORMATION: Elevated liver function tests and bilirubin levels. COMPARISON: Abdomen CT images from 10/14/2016 TECHNIQUE: Multidetector CT imaging examination of the abdomen and pelvis was performed with intravenous administration of contrast (see above) Axial images are displayed at 0.625 mm and 5 mm slice thickness. Coronal and sagittal reformatted images were generated at the technologist's workstation and submitted for review. DLP: See above FINDINGS: HEPATOBILIARY: Liver has normal size and contour. There are a few hepatic cysts, unchanged compared to 10/14/2016. No suspicious hepatic lesion or intrahepatic bile duct dilatation. Gallbladder is grossly unremarkable. PANCREAS: Unremarkable. SPLEEN: Unremarkable. ADRENAL GLANDS: Unremarkable. KIDNEYS, URETERS, BLADDER: Kidneys enhance symmetrically. No renal mass, nephrolithiasis or hydronephrosis. The ureters and urinary bladder unremarkable. GI TRACT AND PERITONEUM: Stomach is unremarkable. Loops of bowel are normal in caliber. No evidence of acute inflammation or obstruction along the gastrointestinal tract. No ascites or pneumoperitoneum. ABDOMINAL WALL: There is edema within subcutaneous tissues of the abdominal wall, flanks and back. VASCULAR: There is increased thrombus along the inner wall of the aneurysmal infrarenal aorta. The fusiform aneurysm begins approximately 3.3 cm below the level of the renal arteries and terminates above the level of bifurcation. The infrarenal abdominal aorta aneurysm measures up to 5.4 cm transverse and 5.2 cm AP, compared to 5.2 x 5 cm on 10/14/2016. Atherosclerotic disease of iliac arteries without aneurysm. LYMPH NODES: No pathologic sized lymph nodes within the abdomen or pelvis. PELVIC VISCERA: Prostate gland has central calcification. No pelvic mass. OSSEOUS STRUCTURES: Multilevel facet arthropathy and multilevel severe degenerative disc disease of the lumbar spine. 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 IMPRESSION: 1. No acute imaging findings within the abdomen or pelvis. 2. Fusiform aneurysm of the infrarenal abdominal aorta has increased thrombus along its inner wall compared to 10/14/2016. The aneurysm has slightly increased in size and currently measures up to 5.4 cm transverse (compared to 5.2 cm on 10/14/2016). DICTATED BY: Thomas Espinoza MD DATE/TIME DICTATED:01/03/181933 TOOL DRAWING CHECKER:DUSTY DATE/TIME TRANSCRIBED:01/03/181933 CONFIDENTIAL, DO NOT COPY WITHOUT APPROPRIATE AUTHORIZATION. <Electronically signed in Other Vendor System> SIGNED BY: Thomas Espinoza MD 01/03/182005 PATIENT: KWABENA FELDMAN PRESENT AGE: 72 PATIENT ACCOUNT NO: [id number] : 45 LOCATION: [facility] ORDERING PHYSICIAN: Jerry YANG SERVICE DATE: 01/03/18 EXAM TYPE: US - US-EXT BILAT VENOUS DOPPLER EXAMINATION: US TRIPLEX OF LOWER EXTREMITIES, BILATERAL CLINICAL INFORMATION: Edema. Swelling. COMPARISON: None TECHNIQUE: Color-flow triplex imaging with spectral analysis and compression Doppler were performed on the lower extremities. FINDINGS: Respiratory variation, normal compression and augmented flow are noted throughout the lower extremities. The visualized common femoral vein, superficial femoral vein, profunda femoral vein, popliteal vein and midcalf peroneal and posterior tibial venous segments show no evidence of deep venous thrombosis. There is a popliteal cyst of the right knee measuring 3 x 0.5 x 0.8 cm IMPRESSION: 1. Normal triplex scan without evidence of deep venous thrombosis involving the lower extremities. 2. Right knee popliteal cyst. DICTATED BY: Antwan Jerez MD DATE/TIME DICTATED:01/03/181855 TOOL DRAWING CHECKER:DUSTY DATE/TIME TRANSCRIBED:01/03/181855 CONFIDENTIAL, DO NOT COPY WITHOUT APPROPRIATE AUTHORIZATION. <Electronically signed in Other Vendor System> SIGNED BY: Antwan Jerez MD 01/03/181900 PATIENT: KWABENA FELDMAN JR PRESENT AGE: 72 PATIENT ACCOUNT NO: [id number] : 45 LOCATION: [facility] ORDERING PHYSICIAN: Lorena Mi MD SERVICE DATE: 01/05/18 EXAM TYPE: RAD - XRY-PORTABLE CHEST XRAY EXAMINATION: XR PORTABLE CHEST CLINICAL INFORMATION: COPD. Right-sided heart failure. COMPARISON: Chest x-ray dated 12/16/2017. TECHNIQUE: Portable AP semierect view of the chest was obtained. FINDINGS: EKG leads overlie the chest. The cardiomediastinal silhouette is prominent in size, likely related to AP technique. Lungs bilaterally are symmetrically expanded and continue to demonstrate central vascular congestion and mild increased reticular opacities, similar to the previous exam, suggesting mild pulmonary edema. There is blunting of the left CP angle, consistent with a small pleural effusion. No focal consolidation or pneumothorax is seen. Bony structures are unremarkable. IMPRESSION: Findings are consistent with mild pulmonary edema and small left pleural effusion. Similar findings were seen previously. DICTATED BY: Argenis Wetzel MD DATE/TIME DICTATED:01/05/181151 TOOL DRAWING CHECKER:DUSTY DATE/TIME TRANSCRIBED:01/05/181151 CONFIDENTIAL, DO NOT COPY WITHOUT APPROPRIATE AUTHORIZATION. <Electronically signed in Other Vendor System> SIGNED BY: Argenis Wetzel MD [id number] Disposition Summary Disposition Principal Diagnosis: HFrEF Additional Diagnosis: Discharge Disposition: other general hospital Discharge Instructions General Discharge Information Code Status: Full Code Patient's Diet: TOLERATED Patient's Activity: TOLERATED Follow-Up Instructions/Appts: SEE ABOVE Medications at Discharge Discharge Medications: Stop taking the following medications: Tramadol HCl (Tramadol HCl) 50 MG TABLET ORAL as needed for PAIN Qty = 60 Cyclobenzaprine HCl (Cyclobenzaprine HCl) 10 MG TABLET ORAL as needed for MUSCLE RELAXER Qty = 60 Aspirin (Ecotrin*) 81 MG TABLET.DR ORAL DAILY Rosuvastatin Calcium (Crestor) 10 MG TABLET ORAL DAILY Qty = 90 Start taking the following new medications: Ceftriaxone Sodium (Ceftriaxone) 1 GRAM VIAL 1 VIAL INTRAVEN Q24H Qty = 5 No Refills Ipratropium [place] (Ipratropium [place]) 0.2 MG/ML (0.02 %) SOLUTION 2.5 Milliliters Inhale through mouth EVERY 4 HOURS NEEDED as needed for SHORTNESS OF BREATH Qty = 30 No Refills Omeprazole (Omeprazole) 20 MG CAPSULE.DR 2 Capsule ORAL DAILY BEFORE BREAKFAST Qty = 30 No Refills Copies To: Lizbeth GARNER,Leonard
[2018-01-05 15:40] LABS: PTT 20 SEC (25-37)
[2018-01-05 16:00] VITALS: BP 106/77
[2018-01-05 17:34] VITALS: BP 106/77
--- NOTE | 2018-01-05 17:59 | PN- Cardiology ---
Subjective Subjective: The patient continues to complain of shortness of breath. No chest pain. No palpitations. The blood pressure has been borderline but adequate. Diuretics have been held so far today because of borderline hypotension. Antibiotics have been started for possible H. influenzae on sputum. No palpitations. Nausea or vomiting. No lightheadedness or dizziness. No syncope. Objective Vital Signs and I&Os Vital Signs Date Time Temp Pulse Resp B/P B/P Pulse O2 O2 Flow FiO2 Mean Ox Delivery Rate 01/05 1734 98.0 80 20 106/77 01/05 1600 95 01/05 1600 98.0 80 20 106/77 95 Room Air 01/05 1441 92 Room Air 01/05 1248 94/60 01/05 1200 96 Room Air 01/05 1200 97.9 82 30 110/69 98 Room Air 01/05 1139 96 Room Air 01/05 0800 97.9 85 18 104/64 100 Nasal 2.0L Cannula 01/05 0800 100 Nasal 2.0L Cannula 01/05 0400 93 Nasal 2.0L Cannula 01/05 0000 97 Nasal 2.0L Cannula 01/05 0000 96.7 85 18 102/70 97 Nasal 2.0L Cannula 01/04 2000 98 Nasal 2.0L Cannula 01/04 1930 95 Nasal 2.0L Cannula Intake & Output 01/05 1600 08 0800 03/08 0000 01/04 1600 01/04 0800 01/04 0000 Intake Total 615 220 240 965 Output Total 275 881 904 4044 350 1000 Balance 340 -380 -285 -510 -350 -1000 Intake, IV 15 125 Intake, Oral 600 220 240 840 Number 0 Bowel Movements Output, Dialysate Output, Urine 275 701 572 7818 350 1000 Patient 161 lb 159 lb 158 lb 166 lb Weight Weight Bed scale Bed scale Bed scale Reported by Patient Measurement Method Physical Exam: Gen: NAD HEENT: normal Lungs: Bilateral rales, normal resp. effort Heart: RRR, S1, S2, 2/6 systolic murmur Abdomen: Soft, nontender, no masses Extremities: No clubbing, cyanosis, or edema. Neuro: Alert and oriented x 3, cranial nerves intact Current Medications: Current Medications Sig/Yousuf Start time Last Medication Dose Route Stop Time Status Admin Albuterol Sulfate 3 ML Q4P PRN 01/04 1400 AC 01/05 INH 1439 Ceftriaxone Sodium 1,000 MG Q24H 01/05 1100 DC 01/05 IV 1138 Cefuroxime Sodium 250 MG Q12 01/05 2200 AC PO Ipratropium [place] 2.5 ML Q4P PRN 01/04 1400 AC 01/05 INH 1439 Omeprazole 40 MG DAILY AC 01/04 1439 AC 01/05 PO 0608 Phytonadione 5 MG ONCE ONE 01/05 0900 DC 01/05 PO 01/05 0901 1027 Sodium Chloride 250 ML BOLUS ONE 01/05 1215 CAN IV 01/05 1444 Results Last 48 Hrs of Labs/Mics: Laboratory Tests 01/05/18 1600: Fibrinogen Activity Cancelled 01/05/18 1500: Anion Gap 12, Estimated GFR 46 L, Glucose 138 H, Lactic Acid 4.4 H, Calcium 8.3 L, Phosphorus 3.0, Magnesium 2.4 H, Total Bilirubin 1.7 H, AST 344 H, ALT 1368 H, Albumin 3.2 L, PT 21.0 H, INR 1.91 H, APTT 20 L, Fibrinogen Activity 104 L, D-Dimer High Sensitivty 2661 H 01/05/18 1415: CBC w Diff NO MAN DIFF REQ, RBC 4.93, MCV 90.5, MCH 28.7, MCHC 31.7 L, RDW 17.1 H, MPV 9.9, Gran % 94.6 H, Lymphocytes % 2.2 L, Monocytes % 3.0, Eosinophils % 0, Basophils % 0.2, Absolute Granulocytes 16.4 H, Absolute Lymphocytes 0.4 L , Absolute Monocytes 0.5, Absolute Eosinophils 0, Absolute Basophils 0 01/05/18 0844: Lactic Acid Cancelled 01/05/18 0800: Lactic Acid Cancelled 01/05/18 0415: Lactic Acid 2.2 H 01/05/18 0415: Anion Gap 11, Estimated GFR 46 L, Glucose 116 H, Calcium 8.6, Phosphorus 3.8, Magnesium 2.5 H, Total Bilirubin 2.1 H, AST 410 H, ALT 1478 H, Albumin 3.3 L, PT 24.4 H, INR 2.22 H, APTT 27, Fibrinogen Activity 101 L, D-Dimer High Sensitivty 2595 H, CBC w Diff MAN DIFF ORDERED, RBC 4.77, MCV 90.1, MCH 29.4, MCHC 32.6 L, RDW 17.1 H, MPV 9.3, Gran % 94.1 H, Lymphocytes % 2.2 L, Monocytes % 3.6, Eosinophils % 0, Basophils % 0.1, Absolute Granulocytes 18.2 H , Segmented Neutrophils 90 H, Absolute Lymphocytes 0.4 L, Lymphocytes 5 L, Monocytes 5, Absolute Monocytes 0.7 H, Absolute Eosinophils 0, Absolute Basophils 0, Nucleated RBCs 1 H, Platelet Estimate DECREASED, Polychromasia 1+, Poikilocytosis 1+, Ovalocytes 1+, Fld Total RBCs Counted 100 01/05/18 0015: Lactic Acid 3.2 H 01/04/18 2100: Lactic Acid 4.0 H 01/04/18 1700: CBC w Diff Cancelled, WBC Cancelled, RBC Cancelled, Hgb Cancelled, Hct Cancelled , MCV Cancelled, MCH Cancelled, MCHC Cancelled, RDW Cancelled, Plt Count Cancelled, MPV Cancelled 01/04/18 1610: Anion Gap 15, Estimated GFR 35 L, Glucose 113 H, Lactic Acid 3.7 H, Calcium 8.6, Phosphorus 4.2, Magnesium 2.4 H, Total Bilirubin 2.5 H, AST 539 H, ALT 1691 H, Albumin 3.5, PT 26.3 H, INR 2.39 H, APTT 30, Fibrinogen Activity 114 L, CBC w Diff NO MAN DIFF REQ, RBC 4.90, MCV 90.6, MCH 29.5, MCHC 32.5 L, RDW 17.2 H, MPV 9.8, Gran % 93.6 H, Lymphocytes % 1.9 L, Monocytes % 4.5, Eosinophils % 0, Basophils % 0, Absolute Granulocytes 15.7 H, Absolute Lymphocytes 0.3 L, Absolute Monocytes 0.7 H, Absolute Eosinophils 0, Absolute Basophils 0 01/04/18 1500: Urinalysis LIGHT H, Urine Color YEL, Urine Clarity CLEAR, Urine pH 5.5, Ur Specific Cammal 1.010, Urine Protein TRACE H, Urine Ketones NEG, Urine Nitrite NEG, Urine Bilirubin NEG, Urine Urobilinogen 0.2, Ur Leukocyte Esterase NEG, Ur Microscopic SEDIMENT EXAMINED, Urine RBC RARE, Urine WBC RARE, Ur Epithelial Cells MOD H, Hyaline Casts 1-3 H, Granular Casts 3-5 H, Urine Mucus FEW, Urine Hemoglobin SMALL H, Urine Glucose NEG 01/04/18 1500: Troponin I 0.12 *H, Ur Random Creatinine 23.9, Ur Random Sodium 57, Ur Random Potassium 35.4, Fraction Sodium Excret 3.2 H 01/04/18 1230: Lactic Acid 3.2 H 01/04/18 0800: Lactic Acid 2.2 H 01/04/18 0530: Anion Gap 13, Estimated GFR 37 L, Glucose 112 H, Calcium 9.1, Phosphorus 5.0 H, Magnesium 2.4 H, Total Bilirubin 2.2 H, AST 637 H, ALT 1966 H, Alkaline Phosphatase 240 H, Troponin I 0.14 *H, Albumin 3.5, Total PSA 1.59, PT 28.6 H, INR 2.60 H, APTT 32, Fibrinogen Activity 89 L, D-Dimer High Sensitivty 1882 H , CBC w Diff MAN DIFF ORDERED, RBC 5.12, MCV 90.2, MCH 29.4, MCHC 32.6 L, RDW 16.6 H, MPV 9.3, Gran % 93.0 H, Lymphocytes % 4.4 L, Monocytes % 2.5, Eosinophils % 0, Basophils % 0.1, Absolute Granulocytes 10.8 H, Segmented Neutrophils 94 H, Absolute Lymphocytes 0.5 L, Lymphocytes 1 L, Monocytes 5, Absolute Monocytes 0.3, Absolute Eosinophils 0, Absolute Basophils 0, Nucleated RBCs 2 H, Platelet Estimate VERIFIED BY SMEAR, Polychromasia 1+, Anisocytosis 1 +, Macrocytic Cells FEW, Target Cells RARE, [place] Cells FEW, Elliptocytes FEW, Hepatitis A IgM Ab NONREACTIVE, Hep Bs Antigen NONREACTIVE, Hep B Core IgM Ab Conf NONREACTIVE, Hepatitis C Antibody NONREACTIVE, HIV 1&2 Ab Western Blot NONREACTIVE 01/04/18 0340: Lactic Acid 3.1 H 01/04/18 0200: Lactic Acid Cancelled 01/03/18 2340: Anion Gap 16, Estimated GFR 43 L, Glucose 123 H, Calcium 9.0, Phosphorus 4.9 H, Magnesium 2.3, Total Bilirubin 2.7 H, AST 715 H, ALT 2053 H, Troponin I 0.11 *H, Albumin 3.6, CBC w Diff NO MAN DIFF REQ, RBC 5.15, MCV 90.4, MCH 29.5, MCHC 32.6 L, RDW 17.2 H, MPV 9.6, Gran % 91.8 H, Lymphocytes % 5.0 L, Monocytes % 2.9, Eosinophils % 0, Basophils % 0.3, Absolute Granulocytes 12.9 H , Absolute Lymphocytes 0.7 L, Absolute Monocytes 0.4, Absolute Eosinophils 0, Absolute Basophils 0 01/03/18 2240: Lactic Acid 3.5 H Microbiology 01/04 1500 URINE ROUT: Legionella Antigen - COMP 01/04 1500 URINE ROUT: Streptococcus pneumoniae Antigen (M - COMP 01/04 0240 UPPER RESP: Surveillance Culture - COMP 01/04 024 GI: Surveillance Culture - COMP Recent Imaging Studies: Echocardiogram: 1. 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 Peak gradient is 42 mmHg with a mean gradient 20 mmHg and an estimated valve area of 0.6 cm. Mild aortic insufficiency is also present. 2. Mitral leaflet thickening is present with moderate annular calcification and mild to moderate mitral insufficiency with mild to moderate left atrial enlargement. 3. No significant pericardial fluid is detected on the study. 4. The left ventricular chamber size is normal. There is global hypokinesia present which is much more prominent in the mid to distal septum, anterolateral and apical segments. Ejection fraction is approximately 25-30%. There is an ill-defined echodensity present in the distal inferoapical region which may represent a small laminar thrombus. Additional images were obtained following the administration of IV contrast. Diastolic dysfunction is also noted. 5. Mild tricuspid and pulmonic insufficiency are present. Mild pulmonary hypertension is present with a right ventricular systolic pressure 46 mmHg. 6. No prior study was available for comparison. Chest x-ray: Findings are consistent with mild pulmonary edema and small left pleural effusion. Similar findings were seen previously. Assessment/Plan Assessment/Plan Assessment: 1. Worsening dyspnea and LE edema; likely related to COPD exacerbation and probable CHF 2. Minimally elevated troponin 3. Cardiomyopathy with depressed left ventricular function and ejection fraction of 25-30% 4. Severe aortic stenosis 5. Mild pulmonary hypertension 6. VERA 7. Transaminitis 8. Thrombocytopenia; elevated PT/PTT; possible DIC 6. AAA Recommendations: * Would resume diuresis with Lasix 40 mg IV every 12 hours * Monitor input and output with daily weights * Check basic metabolic profile daily * Will eventually need cardiac catheterization. Continue telemetry? Yes
== END 2018-01-05 19:10 | disposition short-term general hospital (02) | DRG 292 ==
LOC: ERH 16:11 → ERHI 18:59 → CRI 18:59 → ENTRNSPT 21:26 → CMPTRNSPT 21:26 → CANRESERV 01-04 00:27 → ENRESERV 01-04 00:27 → CRI 01-04 02:32
PROVIDERS: Internal Medicine; Physician Assistant
PROC: 30233K1 Transfusion of Nonautologous Frozen Plasma into Peripheral Vein, Percutaneous Approach (ICD-10-PCS; principal; 2018-01-04)
DX: I50.21 Acute systolic (congestive) heart failure (principal); N17.9 Acute kidney failure, unspecified; E87.2 Acidosis; D69.6 Thrombocytopenia, unspecified; I27.20 Pulmonary hypertension, unspecified; J44.1 Chronic obstructive pulmonary disease with (acute) exacerbation; I42.9 Cardiomyopathy, unspecified; I35.0 Nonrheumatic aortic (valve) stenosis; R06.01 Orthopnea; I71.4 Abdominal aortic aneurysm, without rupture; R74.0 Nonspecific elevation of levels of transaminase and lactic acid dehydrogenase [LDH]; M54.9 Dorsalgia, unspecified; E78.5 Hyperlipidemia, unspecified; F17.210 Nicotine dependence, cigarettes, uncomplicated; Z79.82 Long term (current) use of aspirin; R79.89 Other specified abnormal findings of blood chemistry; D72.829 Elevated white blood cell count, unspecified; I73.9 Peripheral vascular disease, unspecified; I11.0 Hypertensive heart disease with heart failure; I25.10 Atherosclerotic heart disease of native coronary artery without angina pectoris
CPT/HCPCS: 84133; 84300; CCU; ERO; 36415; 36592; 71045; 74177; 76775; 81001; 82436; 82570; 87040; 87070; 87071; 87086; 87389; 87449; 87450; 93005; 93010; 93970; 96374; 96375; 99291; C8929; J0696; J1940; J2930; J3490; J7040; P9012; Q9957